=== PATIENT | female | born 1955 | race Caucasian/White ===

== ENCOUNTER 2018-01-08 11:22 | Outpatient (CLI) | payer MEDICARE, MEDICAID ==
[2018-01-08 19:02] LABS: BASOPHILS % (AUTO) 0.5 %; EOSINOPHILS # (AUTO) 0.9 10^3/uL (0.0-0.7); EOSINOPHILS % (AUTO) 9.7 %; HGB - HEMOGLOBIN 10.4 g/dL (12.0-16.0); LYMPHOCYTES # (AUTO) 2.2 10^3/uL (1.5-3.5); LYMPHOCYTES % (AUTO) 23.2 %; MEAN CORPUSCULAR HEMOGLOBIN 25.1 pg (27.0-31.0); MONOCYTES # (AUTO) 0.7 10^3/uL (0.0-1.0); NEUTROPHILS # (AUTO) 5.7 10^3/uL (1.5-6.6); NEUTROPHILS % (AUTO) 59.6 %; PLT - PLATELET COUNT 458 10^3/uL (130-450); RED BLOOD COUNT 4.17 10^6/uL (4.20-5.40); RED CELL DISTRIBUTION WIDTH 17.1 % (12.0-15.0); WHITE BLOOD COUNT 9.5 x10^3/uL (4.8-10.8)
[2018-01-08 19:41] LABS: ALBUMIN/GLOBULIN RATIO 1.1 (1.0-2.2); ALKALINE PHOSPHATASE 93 IU/L (42-121); ALT ALANINE AMINOTRANSFERASE 16 IU/L (10-60); AST ASPARTATE AMINOTRANSFERASE 18 IU/L (10-42); BILIRUBIN,TOTAL 0.3 mg/dL (0.2-1.0); BUN - BLOOD UREA NITROGEN 12 mg/dL (6-20); CALCIUM 9.1 mg/dL (8.5-10.3); CARBON DIOXIDE - CO2 30 mmol/L (21-32); CHLORIDE 101 mmol/L (101-111); CHOL/HDL RATIO 6.2 (<4.4); CHOLESTEROL 259 mg/dL; CREATININE 0.7 mg/dL (0.4-1.0); GFR - MDRD 84 (>89); GLUCOSE 99 mg/dL (70-100); HDL CHOLESTEROL 42 mg/dL; LDL CHOLESTEROL,CALCULATED 191 mg/dL; LDL/HDL RATIO 4.5 (<4.4); SODIUM 139 mmol/L (135-145); TOTAL PROTEIN 7.7 g/dL (6.7-8.2); VLDL CHOLESTEROL 26 mg/dL
== END 2018-01-08 11:23 | disposition home or self-care (01) ==
LOC: LAB.N 11:22
PROVIDERS: ATTEND Nurse Practitioner Gerontology
DX: J44.9 Chronic obstructive pulmonary disease, unspecified (principal); I10 Essential (primary) hypertension; K76.0 Fatty (change of) liver, not elsewhere classified; K57.92 Diverticulitis of intestine, part unspecified, without perforation or abscess without bleeding
CPT/HCPCS: 36415; 80053; 80061; 83721; 85025

== ENCOUNTER 2018-01-21 15:49 | Inpatient (IN) | payer MEDICARE, MEDICAID ==
[2018-01-21] MEDS ORDERED: metroNIDAZOLE 500 MG/100 ML 500 MG/100 ML BAG IV ONE (17:21)
[2018-01-21] MEDS ORDERED: CIPROFLOXACIN 400 MG/200 ML 200 ML IV ONE (17:21)
[2018-01-21] MEDS ORDERED: HYDROmorphone 0.5 MG/0.5 ML SYRINGE IVP PRN (17:21)
[2018-01-21] MEDS ORDERED: IPRATROPIUM/ALBUTEROL 3 ML NEB INH PRN (17:24)
[2018-01-21] MEDS ORDERED: ALBUTEROL NEB 2.5 MG/3 ML INH PRN (17:24)
[2018-01-21 17:49] LABS: BASOPHILS # (AUTO) 0.1 10^3/uL (0.0-0.1); BASOPHILS % (AUTO) 0.7 %; EOSINOPHILS # (AUTO) 0.5 10^3/uL (0.0-0.7); EOSINOPHILS % (AUTO) 5.3 %; HGB - HEMOGLOBIN 9.8 g/dL (12.0-16.0); LYMPHOCYTES # (AUTO) 1.7 10^3/uL (1.5-3.5); MEAN CORPUSCULAR HEMOGLOBIN 24.6 pg (27.0-31.0); MEAN CORPUSCULAR VOLUME 79.4 fL (81.0-99.0); MEAN PLATELET VOLUME 8.4 fL (7.9-10.8); MONOCYTES # (AUTO) 0.6 10^3/uL (0.0-1.0); MONOCYTES % (AUTO) 6.2 %; NEUTROPHILS # (AUTO) 6.6 10^3/uL (1.5-6.6); NEUTROPHILS % (AUTO) 69.8 %; PLT - PLATELET COUNT 446 10^3/uL (130-450); RED BLOOD COUNT 3.97 10^6/uL (4.20-5.40); RED CELL DISTRIBUTION WIDTH 16.8 % (12.0-15.0); WHITE BLOOD COUNT 9.5 x10^3/uL (4.8-10.8)
[2018-01-21] MEDS ORDERED: IOPAMIDOL-300 50 ML VIAL ONE (17:50)
[2018-01-21] MEDS ORDERED: IOPAMIDOL-300 100 ML VIAL ONE (17:51)
[2018-01-21 17:58] LABS: ALBUMIN 3.8 g/dL (3.2-5.5); ALBUMIN/GLOBULIN RATIO 0.9 (1.0-2.2); BILIRUBIN,TOTAL 0.7 mg/dL (0.2-1.0); CALCIUM 9.4 mg/dL (8.5-10.3); CREATININE 0.8 mg/dL (0.4-1.0); TOTAL PROTEIN 7.9 g/dL (6.7-8.2)
[2018-01-21] MEDS ORDERED: IOPAMIDOL-300 100 ML VIAL IVP ONE (19:03)
[2018-01-21] MEDS ORDERED: IOPAMIDOL-300 50 ML VIAL PO ONE (19:06)
--- NOTE | 2018-01-21 19:29 | CT Preliminary Report ---
Exam: CT ABDOMEN/PELVIS W/ IMPRESSION: 1. Markedly abnormal distal half of the sigmoid colon. Differential includes colitis, pseudomembranou s colitis, long length diverticulitis, ischemia, atypical for nonobstructing malignancy (although not excluded). 2. Small amount of free pelvic fluid. 3. Left lower pelvic mesenteric and bilateral internal iliac adenopathy. [facility] SITE ID: [id number]
[2018-01-21] MEDS: SODIUM CHLORIDE 0.9% 1,000 ML IV SCH (19:37)
--- NOTE | 2018-01-21 19:43 | CT Report ---
EXAM: CT ABDOMEN AND PELVIS EXAM DATE: 01/21/2018 07:03 PM. CLINICAL HISTORY: Left lower quadrant abdominal pain. COMPARISONS: 08/08/2016. TECHNIQUE: Routine helical CT imaging was performed through the abdomen and pelvis. IV contrast: 100 mL ISOVUE 300. Enteric contrast: Oral contrast. Reconstructions: Coronal and sagittal. In accordance with CT protocol optimization, one or more of the following dose reduction techniques w ere utilized for this exam: automated exposure control, adjustment of mA and/or KV based on patient s ize, or use of iterative reconstructive technique. FINDINGS: Lung Bases: Unremarkable. Liver: Fatty infiltration. No masses. Gallbladder/Bile Ducts: Unremarkable. Spleen: Normal. Pancreas: Normal. Adrenal Glands: Normal. Kidneys: Normal. No masses or hydronephrosis. Peritoneal Cavity/Bowel: Multiple diverticuli off the sigmoid colon. Marked wall thickening distal half sigmoid colon with a marked amount of adjacent edema, linear fluid as well as mesenteric adenopathy. No extraluminal air nor abscess. The more proximal large and small bowel are unremarkable. Oral contrast extends through to the distal descending colon. Appendix not visualized, but no inflammatory changes adjacent to the cecum. Pelvic Organs: Small amount of free pelvic fluid. Normal-caliber uterus. No stones in the small calib er urinary bladder. No adnexal mass lesions. Bilateral shotty internal iliac adenopathy. Normal rectu m. Vasculature: No aneurysms or other significant abnormality. Bones: Multilevel marked degenerative disk disease. Old right ninth rib fracture. Other: None. IMPRESSION: 1. Markedly abnormal distal half of the sigmoid colon. Differential includes colitis, pseudomembranou s colitis, long length diverticulitis, ischemia, atypical for nonobstructing malignancy (although not excluded). 2. Small amount of free pelvic fluid. 3. Left lower pelvic mesenteric and bilateral internal iliac adenopathy. [facility] Referring Provider Line: [phone] SITE ID: [id number]
[2018-01-21] MEDS: ONDANSETRON 4 MG/2 ML VIAL IVP PRN (20:58)
[2018-01-21] MEDS: CIPROFLOXACIN 400 MG/200 ML 200 ML IV SCH (21:09)
[2018-01-21] MEDS ORDERED: PROMETHAZINE INJ 25 MG in SODIUM CHLORIDE 0.9% 50 ML IV PRN (22:34)
[2018-01-21] MEDS ORDERED: PROCHLORPERAZINE 10 MG/2 ML VIAL IVP PRN (22:55)
[2018-01-21] MEDS: metroNIDAZOLE 500 MG/100 ML 500 MG/100 ML BAG IV SCH (23:58)
[2018-01-22] MEDS: SODIUM CHLORIDE FLUSH 0.9% 10 ML SYRINGE IVP SCH ×3 (00:07→15:38)
[2018-01-22] MEDS: metroNIDAZOLE 500 MG/100 ML 500 MG/100 ML BAG IV SCH ×4 (04:47→22:38)
[2018-01-22] MEDS: HEPARIN 5,000 UNIT/ML VIAL SUBQ SCH ×4 (05:48→21:34)
[2018-01-22] MEDS: CIPROFLOXACIN 400 MG/200 ML 200 ML IV SCH ×2 (08:58→21:24)
[2018-01-22] MEDS ORDERED: CITALOPRAM 10 MG TABLET PO SCH (09:00)
[2018-01-22] MEDS: LISINOPRIL 20 MG TABLET PO SCH (09:10)
[2018-01-22] MEDS: UMECLIDINIUM BROMIDE 62.5 MCG INH SCH (10:29)
[2018-01-22] MEDS: SODIUM CHLORIDE 0.9% 1,000 ML IV SCH ×2 (12:55→13:03)
[2018-01-22] MEDS: ONDANSETRON 4 MG/2 ML VIAL IVP PRN (21:22)
[2018-01-22] MEDS: ACETAMINOPHEN 325 MG TABLET PO PRN (21:26)
--- NOTE | 2018-01-23 00:03 | PROVIDER PROGRESS NOTE ---
Subjective - General Admit Date: 01/21/18 - Review of Systems Gastrointestinal: positive: Flatus (Had a small bowel movement today), Other ( less abdominal pain today) Objective - Patient Data Vital Signs: Vital Signs x48h Temp Pulse Resp BP Pulse Ox 01/22/18 20:30 37.0 C 89 18 152/72 H 94 Weight: Weight 01/21/18 01/22/18 01/23/18 23:59 23:59 23:59 Weight (kg) 83.5 kg Intake & Output: Intake and Output Totals x24h 01/21/18 01/22/18 01/23/18 23:59 23:59 23:59 Intake Total 1200 4340 Balance 1200 4340 - Lab Results Lab Results: 01/21/18 17:36 01/21/18 17:36 - Current Medications Current Medications: Current Medications Generic Name Dose Route Start Last Admin Trade Name Freq PRN Reason Stop Dose Admin Acetaminophen 650 mg 01/22/18 21:00 01/22/18 21:26 Tylenol PO 650 mg Q4HR PRN Administration Pain or Fever > 38C (100.4F) Heparin Sodium (Porcine) 5,000 unit 01/21/18 22:00 01/22/18 21:34 SUBQ 5,000 unit TID ERNESTINA Administration Sodium Chloride 1,000 mls @ 100 mls/hr 01/21/18 18:00 01/22/18 22:10 Normal Saline 0.9% IV Infused .Q10H ERNESTINA Infusion Ciprofloxacin 200 mls @ 200 mls/hr 01/21/18 20:30 01/22/18 22:42 Cipro 400 Mg/200 Ml IV Infused Q12H ERNESTINA Infusion Metronidazole 500 mg in 100 mls @ 100 mls/hr 01/21/18 22:00 01/22/18 22:38 Flagyl 500 Mg/100 Ml IV 100 mls/hr Q6H ERNESTINA Administration Lisinopril 20 mg 01/22/18 09:00 01/22/18 09:10 Zestril PO 20 mg DAILY ERNESTINA Administration Non-Formulary Medication 62.5 mcg 01/22/18 09:00 01/22/18 10:29 Umeclidinium [place] [Incruse Ellipta] INH Not Given DAILY ERNESTINA Ondansetron HCl 4 mg 01/21/18 20:15 01/22/18 21:22 Zofran Inj IVP 4 mg Q6HR PRN Administration Nausea / Vomiting Prochlorperazine Edisylate 10 mg 01/21/18 22:55 01/21/18 23:55 Compazine Inj IVP 10 mg Q4HR PRN Administration Nausea / Vomiting Sodium Chloride 10 ml 01/22/18 01:00 01/22/18 15:38 Normal Saline Flush 0.9% IVP Not Given 0100,0900,1700 ERNESTINA - Physical Exam Abdomen: positive: Tenderness (Tender LLQ without peritoneal signs) ABX Reporting Has patient been on IV antibiotics over the past 48 hours?: No Impression/Plan - Problem List Problem List: Recurrent sigmoid diverticulitis clinically on and ct scan. Improved overnight on IV antibiotics but still having tenderness in llq. Recommend at least 1 more day of iv antibiotics after starting on liquids.
[2018-01-23] MEDS: SODIUM CHLORIDE 0.9% 1,000 ML IV SCH ×2 (03:29→15:44)
[2018-01-23] MEDS: SODIUM CHLORIDE FLUSH 0.9% 10 ML SYRINGE IVP SCH ×3 (03:30→16:39)
[2018-01-23] MEDS: metroNIDAZOLE 500 MG/100 ML 500 MG/100 ML BAG IV SCH ×4 (03:33→23:14)
[2018-01-23] MEDS: HEPARIN 5,000 UNIT/ML VIAL SUBQ SCH ×3 (06:54→22:10)
[2018-01-23] MEDS: CIPROFLOXACIN 400 MG/200 ML 200 ML IV SCH ×2 (08:02→22:09)
[2018-01-23] MEDS: LISINOPRIL 20 MG TABLET PO SCH (08:03)
[2018-01-23] MEDS: ACETAMINOPHEN 325 MG TABLET PO PRN ×2 (08:08→16:42)
[2018-01-23] MEDS ORDERED: PROCHLORPERAZINE 10 MG/2 ML VIAL IVP PRN (09:22)
--- NOTE | 2018-01-23 09:23 | PROVIDER PROGRESS NOTE ---
Subjective - General Admit Date: 01/21/18 - Review of Systems Gastrointestinal: positive: Flatus (loose bowel movements now), Other ( continued less abdominal pain today) Objective - Patient Data Vital Signs: Vital Signs x48h Temp Pulse Resp BP Pulse Ox 01/23/18 07:27 37.2 C 100 18 160/76 H 94 01/23/18 05:05 36.9 C 88 16 147/70 H 95 Weight: Weight 01/21/18 01/22/18 01/23/18 23:59 23:59 23:59 Weight (kg) 83.5 kg Intake & Output: Intake and Output Totals x24h 01/21/18 01/22/18 01/23/18 23:59 23:59 23:59 Intake Total 1200 4340 800 Balance 1200 4340 800 - Lab Results Lab Results: 01/21/18 17:36 01/21/18 17:36 - Current Medications Current Medications: Current Medications Generic Name Dose Route Start Last Admin Trade Name Freq PRN Reason Stop Dose Admin Acetaminophen 650 mg 01/22/18 21:00 01/23/18 08:08 Tylenol PO 650 mg Q4HR PRN Administration Pain or Fever > 38C (100.4F) Heparin Sodium (Porcine) 5,000 unit 01/21/18 22:00 01/23/18 06:54 SUBQ 5,000 unit TID ERNESTINA Administration Sodium Chloride 1,000 mls @ 100 mls/hr 01/21/18 18:00 01/23/18 03:29 Normal Saline 0.9% IV 100 mls/hr .Q10H ERNESTINA Administration Ciprofloxacin 200 mls @ 200 mls/hr 01/21/18 20:30 01/23/18 08:02 Cipro 400 Mg/200 Ml IV 200 mls/hr Q12H ERNESTINA Administration Metronidazole 500 mg in 100 mls @ 100 mls/hr 01/21/18 22:00 01/23/18 05:29 Flagyl 500 Mg/100 Ml IV Infused Q6H ERNESTINA Infusion Lisinopril 20 mg 01/22/18 09:00 01/23/18 08:03 Zestril PO 20 mg DAILY ERNESTINA Administration Non-Formulary Medication 62.5 mcg 01/22/18 09:00 01/22/18 10:29 Umeclidinium [place] [Incruse Ellipta] INH Not Given DAILY ERNESTINA Sodium Chloride 10 ml 01/22/18 01:00 01/23/18 03:30 Normal Saline Flush 0.9% IVP Not Given 0100,0900,1700 [facility] - Physical Exam Abdomen: positive: Tenderness (Continued tenderness in llq but improved compared to yesterday.) Impression/Plan - Problem List Problem List: Sigmoid diverticulitis. Improved but symptoms still present. Continue at least one more day of iv antibiotics. -advance diet -heplock iv
[2018-01-23] MEDS: SACCHAROMYCES BOULARDII 250 MG CAPSULE PO SCH ×2 (10:06→16:37)
[2018-01-23] MEDS: UMECLIDINIUM BROMIDE 62.5 MCG INH SCH (10:07)
[2018-01-23] MEDS ORDERED: ZINC OXIDE 20% OINT 28.35 GM TUBE TOP PRN (14:38)
[2018-01-23] MEDS: SODIUM CHLORIDE FLUSH 0.9% 10 ML SYRINGE IVP PRN (22:09)
[2018-01-23] MEDS: FAMOTIDINE 20 MG TABLET PO SCH (22:10)
[2018-01-24] MEDS: ACETAMINOPHEN 325 MG TABLET PO PRN (00:06)
[2018-01-24] MEDS: ZOLPIDEM 5 MG TABLET PO PRN (00:07)
[2018-01-24] MEDS: SODIUM CHLORIDE FLUSH 0.9% 10 ML SYRINGE IVP SCH ×3 (00:12→16:08)
[2018-01-24] MEDS: SODIUM CHLORIDE FLUSH 0.9% 10 ML SYRINGE IVP PRN ×3 (04:43→20:42)
[2018-01-24] MEDS: metroNIDAZOLE 500 MG/100 ML 500 MG/100 ML BAG IV SCH ×4 (04:43→21:41)
[2018-01-24] MEDS: HEPARIN 5,000 UNIT/ML VIAL SUBQ SCH ×3 (05:46→21:57)
[2018-01-24] MEDS: LISINOPRIL 20 MG TABLET PO SCH (09:20)
[2018-01-24] MEDS: CIPROFLOXACIN 400 MG/200 ML 200 ML IV SCH ×2 (09:20→20:42)
[2018-01-24] MEDS: FAMOTIDINE 20 MG TABLET PO SCH ×2 (09:20→21:41)
[2018-01-24] MEDS: SACCHAROMYCES BOULARDII 250 MG CAPSULE PO SCH ×2 (09:20→16:08)
[2018-01-24] MEDS: UMECLIDINIUM BROMIDE 62.5 MCG INH SCH (10:31)
[2018-01-25] MEDS: ZOLPIDEM 5 MG TABLET PO PRN (00:26)
[2018-01-25] MEDS: SODIUM CHLORIDE FLUSH 0.9% 10 ML SYRINGE IVP SCH ×2 (00:26→08:40)
[2018-01-25] MEDS: SODIUM CHLORIDE FLUSH 0.9% 10 ML SYRINGE IVP PRN ×2 (03:41→08:40)
[2018-01-25] MEDS: metroNIDAZOLE 500 MG/100 ML 500 MG/100 ML BAG IV SCH ×2 (03:41→10:30)
[2018-01-25] MEDS: HEPARIN 5,000 UNIT/ML VIAL SUBQ SCH (06:06)
[2018-01-25] MEDS: FAMOTIDINE 20 MG TABLET PO SCH (08:39)
[2018-01-25] MEDS: LISINOPRIL 20 MG TABLET PO SCH (08:39)
[2018-01-25] MEDS: CIPROFLOXACIN 400 MG/200 ML 200 ML IV SCH (08:40)
[2018-01-25] MEDS: SACCHAROMYCES BOULARDII 250 MG CAPSULE PO SCH (08:40)
--- NOTE | 2018-01-25 08:55 | Discharge Plan ---
Discharge Plan Disposition: 01 Home, Self Care Condition: Good Prescriptions: Ciprofloxacin HCl [Cipro] 500 mg PO BID #14 tablet Activity Restrictions: No Restrictions Shower Restrictions: No Driving Restrictions: No Additional Instructions or Follow Up instructions: full liquids for 2 days then low residual for 2 weeks. Afterwards then high fiber diet. No Smoking: If you smoke, Please STOP! Call for help. Follow-up with: Mckenzie Ayala ARNP [Primary Care Provider] - Redd Rain MD [Provider Admit Priv/Credential] - 2 Weeks
[2018-01-25] MEDS ORDERED: SODIUM CHLORIDE FLUSH 0.9% 10 ML SYRINGE ONE (10:34)
[2018-01-25] MEDS: UMECLIDINIUM BROMIDE 62.5 MCG INH SCH (11:41)
[2018-01-25 12:15] VITALS: BP 173/85
--- NOTE | 2018-02-25 03:04 | PROVIDER PROGRESS NOTE ---
Subjective - General Admit Date: 01/21/18 - Review of Systems Gastrointestinal: positive: Flatus (loose bowel movements now), Other (still having about the same amount of abdominal pain as yesterday.) Objective - Lab Results Lab Results: 01/21/18 17:36 01/21/18 17:36 - Physical Exam Abdomen: positive: Other (mild tenderness in the llq) Impression/Plan - Problem List Problem List: Diverticulitis. This has improved clinically on IV antibiotics but hasnt fully resolved. Discussed switching to different iv antibiotics but this would remove any chance of being discharged on oral antibiotics and would then make it so that she would need to be sent home on IV antibiotics. She would like to try one more day of current antibiotics to see if the diverticulitis will resolve. Continue cipro/flagyl Advance diet as tolerated.
--- NOTE | 2018-02-25 03:08 | PROVIDER PROGRESS NOTE ---
Subjective - General Admit Date: 01/21/18 - Review of Systems Gastrointestinal: positive: Flatus (loose bowel movements now), Other ( abdominal pain almost fully resolved today. Bowel movements firming up.) Objective - Lab Results Lab Results: 01/21/18 17:36 01/21/18 17:36 - Physical Exam Abdomen: positive: Non-tender, Other Impression/Plan - Problem List Problem List: Diverticulitis with symptoms for the most part resolved on cipro/flagyl. Will d/c home today on oral antibiotics. COPD stable on inhalers.
--- NOTE | 2018-02-25 11:18 | DISCHARGE SUMMARY ---
Physician: Redd Rain MD DATE OF ADMISSION: 01/21/2018 DATE OF DISCHARGE: 01/25/2018 REASON FOR ADMISSION: Recurrent sigmoid diverticulitis. HISTORY OF PRESENT ILLNESS: The patient is a 62-year-old female who had a history of diverticulitis treated with Cipro and Flagyl in the last month. She has had continued abdominal pain. She was seen in the clinic on the day of admission having severe abdominal pain. Because of this, she was then admitted to the hospital for further diagnostic testing and treatment. PRINCIPAL DIAGNOSIS: Recurrent sigmoid diverticulitis. OTHER MEDICAL PROBLEMS 1. Chronic obstructive pulmonary disease. 2. Hypertension. 3. Depression/anxiety. 4. Anemia of unknown etiology. HOSPITAL COURSE: The patient was admitted to the hospital and started on Cipro and Flagyl along with IV fluids and pain medication. The patient had normal white blood cell count of 9.5. However, she was anemic at 9.8. She had a CT scan of her abdomen and pelvis, which showed markedly abnormal distal half of the sigmoid colon being secondary to probable diverticulitis. There is no obvious perforation being present at the current time. She was continued with Cipro and Flagyl throughout hospitalization. The patient's abdominal pain continued to improve throughout hospitalization with it almost resolving at discharge. She was tolerating a regular diet at this point and having stools becoming firmer. DISCHARGE PROGRAM: The patient will be discharged home. Followup in surgical clinic in 2 weeks in order to discuss having an upper and lower endoscopy to evaluate her diverticulitis and colon along with workup of her anemia. She is to resume her prehospitalization medications. In addition, Cipro 500 mg p.o. b.i.d. and Flagyl 500 mg p.o. t.i.d. She may ambulate as tolerated. Regular diet. TD: 02/25/2018 03:18
--- NOTE | 2018-02-25 11:47 | HISTORY & PHYSICAL EXAMINATION ---
DATE OF SERVICE: 01/21/2018 Physician: Redd Rain MD REASON FOR ADMISSION: Acute abdominal pain. HISTORY OF PRESENT ILLNESS: The patient is a 62-year-old female who presents with abdominal pain to the clinic. She has had this for the last month with it worsening. Her history is significant in which she was admitted to the hospital a year ago for worsening COPD. She was having abdominal pain at that time. A CT scan of abdomen and pelvis showed diverticulitis. This resolved with Cipro and Flagyl. She was also having diarrhea and blood in her stool. In the last month, she has had continued abdominal pain and going on a BRAT diet without success in her relieving her pain. Because of the continuing pain, she was referred to surgery for evaluation. She denies any current diarrhea or constipation. Her history is significant in which her son recently has history of diverticulitis undergoing a resection. The patient has not had a colonoscopy. PAST MEDICAL HISTORY 1. Anxiety and depression. 2. Gastroesophageal reflux disease. 3. COPD. 4. History of diverticulitis. 5. History of gastrointestinal bleeding. 6. Hypertension. 7. Obesity. 8. Steatosis of the liver. ALLERGIES: PENICILLIN. MEDICATIONS 1. Citalopram 2. Ipratropium/Albuterol 3. Aleve 4. Ventolin inhaler 5. Lisinopril 6. Ranitidine PAST SURGICAL HISTORY: Appendectomy and tubal ligation. FAMILY HISTORY: Diabetes. HABITS: The patient quit smoking in 2011. SOCIAL HISTORY: She socially uses alcohol. Denies any drug use. Patient is single. REVIEW OF SYSTEMS: Complete review of systems was obtained. Pertinent positives are gastrointestinal abdominal pain and occasional loose stools. RESPIRATORY: Shortness of breath. PSYCHOLOGICAL: Depression and anxiety. A 12-point review of systems obtained with pertinent positives discussed and all others negative. PHYSICAL EXAMINATION VITAL SIGNS: Temperature is 98.2, pulse 112, respiration 18, blood pressure 161/92. GENERAL: The patient is obviously in distress secondary to abdominal pain. EYES: Nonicteric. NECK: No lymphadenopathy. HEART: Mildly tachycardic. LUNGS: Clear. BACK: Nontender. ABDOMEN: Soft, tender in the left lower quadrant without peritoneal signs. No masses. No hernias. EXTREMITIES: No edema or cyanosis. NEUROLOGIC: The patient appears to be neurologically intact without any deficits. PSYCHOLOGICAL: The patient is coherent, cooperative, and appears to answer questions fully. DIAGNOSTIC DATA: CBC and CT scan of the abdomen and pelvis are pending. ASSESSMENT 1. Acute abdominal pain, left lower quadrant. The patient has history of diverticulitis. I would recommend the patient be admitted to the hospital and undergoing diagnostic workup along with treatment for presumed diverticulitis. She will be started on IV antibiotics, n.p.o. and IV fluids. We will obtain a CT scan of the abdomen and pelvis. 2. Gastroesophageal reflux disease, on Zantac. 3. Anxiety/depression, on medications. 4. COPD, on inhalers. PLAN 1. The patient be admitted to the hospital. 2. N.p.o. 3. IV fluids. 4. IV antibiotics. 5. CT scan of the abdomen and pelvis. 6. CBC to see where her white blood cell count is. TD: 02/25/2018 02:49
== END 2018-01-25 12:57 | disposition home or self-care (01) | DRG 392 ==
LOC: MS2 15:49
PROVIDERS: ADMIT Surgery; ATTEND Surgery
DX: K57.32 Diverticulitis of large intestine without perforation or abscess without bleeding (principal); J44.9 Chronic obstructive pulmonary disease, unspecified; K21.9 Gastro-esophageal reflux disease without esophagitis; K76.0 Fatty (change of) liver, not elsewhere classified; I10 Essential (primary) hypertension; F41.9 Anxiety disorder, unspecified; F43.29 Adjustment disorder with other symptoms; D64.9 Anemia, unspecified; E66.9 Obesity, unspecified; Z68.32 Body mass index [BMI] 32.0-32.9, adult; Z79.51 Long term (current) use of inhaled steroids; Z79.899 Other long term (current) drug therapy; Z87.891 Personal history of nicotine dependence
CPT/HCPCS: 74177; 80053; 85025

== ENCOUNTER 2018-03-16 10:03 | Day surgery (SDC) | payer MEDICARE, MEDICAID ==
[2018-03-16] MEDS ORDERED: LACTATED RINGERS 1,000 ML IV ONE ×2 (10:34→12:26)
[2018-03-16] MEDS ORDERED: fentaNYL 250 MCG/5 ML VIAL IVP ONE (11:20)
[2018-03-16] MEDS ORDERED: GLUCAGON 1 MG/ML VIAL IM ONE (11:20)
[2018-03-16] MEDS ORDERED: ONDANSETRON 4 MG/2 ML VIAL IVP ONE (11:20)
[2018-03-16] MEDS ORDERED: MIDAZOLAM 2 MG/2 ML VIAL IVP ONE (11:20)
[2018-03-16 13:52] VITALS: BP 132/77
== END 2018-03-16 10:04 | disposition home or self-care (01) ==
LOC: SDS 10:03
PROVIDERS: ATTEND Surgery
PROC: 0DJD8ZZ Inspection of Lower Intestinal Tract, Via Natural or Artificial Opening Endoscopic (ICD-10-PCS; principal; 2018-03-16 11:30)
DX: Z09 Encounter for follow-up examination after completed treatment for conditions other than malignant neoplasm (principal); Z87.19 Personal history of other diseases of the digestive system; K57.30 Diverticulosis of large intestine without perforation or abscess without bleeding; K64.8 Other hemorrhoids; Z88.0 Allergy status to penicillin; Z87.891 Personal history of nicotine dependence
CPT/HCPCS: 45378; J3010; J7120

== ENCOUNTER 2018-11-30 16:12 | Outpatient (CLI) | payer MEDICARE, MEDICAID ==
--- NOTE | 2018-12-02 06:06 | XRAY Report ---
Reason: copd acute exacerbation Procedure Date: 11/30/2018 Accession Number: [id number] / [id number] Procedure: XRN - Chest 2 View X-Ray CPT Code: 07404 FULL RESULT: EXAM: CHEST RADIOGRAPHY EXAM DATE: 11/30/2018 04:23 PM. CLINICAL HISTORY: Dyspnea. COMPARISON: CHEST 2 VIEW PA/LAT 08/06/2016 10:34 AM. TECHNIQUE: 2 views. FINDINGS: Lungs/Pleura: No definite evidence of focal infiltrate. No significant pleural effusion. No pneumothorax. Mediastinum: There is cardiomegaly. There is thoracic aortic tortuosity. Other: None. IMPRESSION: No acute intrathoracic plain film abnormality. [facility]
== END 2018-11-30 16:13 | disposition home or self-care (01) ==
LOC: DI.N 16:12
PROVIDERS: ATTEND Nurse Practitioner Gerontology
DX: J44.1 Chronic obstructive pulmonary disease with (acute) exacerbation (principal)
CPT/HCPCS: 71046

== ENCOUNTER 2019-12-02 16:36 | Outpatient (CLI) | payer MEDICARE, MEDICAID | END 2019-12-02 16:37 | disposition home or self-care (01) | LOC: COV 16:36 | PROVIDERS: ATTEND Family Medicine | DX: R05 Cough (principal); R50.9 Fever, unspecified | CPT/HCPCS: 81599; U0002 ==

== ENCOUNTER 2020-07-24 08:00 | Outpatient (CLI) | payer MEDICARE, MEDICAID | END 2020-07-24 23:59 | disposition home or self-care (01) | LOC: LAB.R 08:00 | PROVIDERS: ATTEND Nurse Practitioner Family | DX: R05 Cough (principal); Z20.828 Contact with and (suspected) exposure to other viral communicable diseases ==

== ENCOUNTER 2021-01-28 18:31 | Outpatient (CLI) | payer MEDICARE, MEDICAID | END 2021-01-28 18:32 | disposition critical access hospital (66) | LOC: EMS 18:31 | DX: R07.9 Chest pain, unspecified (principal) ==

== ENCOUNTER 2021-01-28 18:54 | Inpatient (IN) | payer MEDICARE, MEDICAID ==
[2021-01-28 19:13] LABS: BASOPHILS % (AUTO) 0.4 %; EOSINOPHILS # (AUTO) 0.9 10^3/uL (0.0-0.7); EOSINOPHILS % (AUTO) 8.5 %; LYMPHOCYTES # (AUTO) 1.8 10^3/uL (1.5-3.5); LYMPHOCYTES % (AUTO) 17.9 %; MEAN CORPUSCULAR HEMOGLOBIN 19.2 pg (27.0-31.0); MEAN CORPUSCULAR HGB CONC 26.8 g/dL (32.0-36.0); MEAN CORPUSCULAR VOLUME 71.6 fL (81.0-99.0); MEAN PLATELET VOLUME 8.4 fL (7.9-10.8); MONOCYTES # (AUTO) 0.9 10^3/uL (0.0-1.0); MONOCYTES % (AUTO) 8.5 %; NEUTROPHILS # (AUTO) 6.4 10^3/uL (1.5-6.6); NEUTROPHILS % (AUTO) 64.2 %; NRBC ABSOLUTE COUNT (AUTO) 0.05 x10^3/uL; NUCLEATED RED BLOOD CELLS AUTO 0.5 /100WBC; PLT - PLATELET COUNT 430 10^3/uL (130-450); RED CELL DISTRIBUTION WIDTH 23.9 % (12.0-15.0)
[2021-01-28 19:24] LABS: HCT - HEMATOCRIT 17.9 % (37.0-47.0); HGB - HEMOGLOBIN 4.8 g/dL (12.0-16.0)
--- NOTE | 2021-01-28 19:32 | ED Physician Documentation ---
History of Present Illness - Stated complaint Stated Complaint: CP - Chief complaint Chief Complaint: Cardiac - History obtained from History obtained from: Patient, EMS - History of Present Illness Pain level max: 5 Pain level now: 3 - Additonal information Additional information: 65-year-old female states that she has been having intermittent chest pain for the past month. She states that it normally last for 3 to 5 minutes at a time, but may last for up to 20 minutes. She describes it as a burning sensation from the center of her chest down her bilateral arms to her hands. Nothing seems to make it better or worse. No change with exertion, eating, drinking. No cardiac history. Does have a history of COPD and is on 4 L of oxygen at home normally. No fevers. No cough. No congestion. Denies any blood in her stool. No dark stools Review of Systems Ten Systems: 10 systems reviewed and negative Constitutional: denies: Fever, Chills Ears: denies: Ear pain Nose: denies: Rhinorrhea / runny nose, Congestion GI: denies: Vomiting, Diarrhea Skin: denies: Rash Musculoskeletal: denies: Neck pain, Back pain Neurologic: denies: Headache PD PAST MEDICAL HISTORY - Past Medical History Past Medical History: Yes Cardiovascular: Hypertension Respiratory: COPD, Emphysema, Other Endocrine/Autoimmune: None GI: None : None HEENT: None Psych: Depression, Anxiety Musculoskeletal: None Derm: None - Past Surgical History Past Surgical History: Yes 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 - Present Medications Home Medications: Ambulatory Orders Medication Instructions Recorded Confirmed Albuterol Sulf [Ventolin Hfa 2 puffs INH Q4H PRN #1 inhaler 08/09/16 01/28/21 Inhaler] Aspirin [Adult Aspirin] 81 mg PO DAILY 01/21/18 01/28/21 Ipratropium/Albuterol [Duoneb] 3 ml INH Q6H PRN 01/21/18 01/28/21 Melatonin 5 mg PO QPM 01/21/18 01/28/21 Naproxen Sodium 220 mg PO DAILY PRN 01/21/18 01/28/21 Umeclidinium [place] [Incruse 62.5 mcg INH DAILY 01/21/18 01/28/21 Ellipta] guaiFENesin [Guaifenesin] 400 mg PO Q4H 01/21/18 01/28/21 lisinopriL [Lisinopril] 20 mg PO DAILY 01/21/18 01/28/21 raNITIdine HCL [Ranitidine HCl] 150 mg PO BID 01/21/18 01/28/21 Citalopram [CeleXA] 10 mg PO DAILY 03/16/18 01/28/21 - Allergies Allergies/Adverse Reactions: Allergies Allergy/AdvReac Type Severity Reaction Status Date / Time hydromorphone [From Dilaudid] AdvReac Emesis Verified 01/28/21 19:25 Penicillins AdvReac Hives Verified 01/28/21 19:25 - Social History Does the pt smoke?: Yes Smoking Status: Former smoker PD ED PE NORMAL - Vitals Vital signs reviewed: Yes - General General: Alert and oriented X 3, No acute distress, Well developed/nourished - HEENT HEENT: PERRL, Moist mucous membranes - Neck Neck: Supple, no meningeal sign - Cardiac Cardiac: RRR, Strong equal pulses - Respiratory Respiratory: No respiratory distress, Other (Wheezing bilaterally, mild) - Abdomen Abdomen: Soft, Non tender, Non distended - Rectal Rectal: Other (No stool in the rectal vault to test.) - Derm Derm: Warm and dry - Extremities Extremities: No edema, No calf tenderness / cord - Neuro Neuro: Alert and oriented X 3 - Psych Psych: Normal mood, Normal affect Results - Vitals Vitals: Vital Signs - 24 hr 01/28/21 01/28/21 01/28/21 19:18 19:25 19:29 Temperature 36.9 C Heart Rate 113 H 109 H Respiratory 18 18 Rate Blood Pressure 109/98 H 83/55 L Blood Pressure 109/88 H [Right] O2 Saturation 100 100 Oxygen O2 Source Nasal cannula - EKG (time done) 1900 Rate: Rate (enter#) (118) Rhythm: Sinus tachycardia [place]: Normal Intervals: Normal [place] QRS: Normal Ischemia: Other (rate related repol abnormality, ST depression lateral leads) - Labs Labs: Laboratory Tests 01/28/21 01/28/21 01/28/21 19:09 19:09 19:09 WBC 10.0 RBC 2.50 L Hgb 4.8 L* Hct 17.9 L* MCV 71.6 L MCH 19.2 L MCHC 26.8 L RDW 23.9 H Plt Count 430 MPV 8.4 Neut # (Auto) 6.4 Lymph # (Auto) 1.8 [place] # (Auto) 0.9 Eos # (Auto) 0.9 H Baso # (Auto) 0.0 Absolute Nucleated RBC 0.05 Nucleated RBC % 0.5 WBC Morphology NORMAL APPEARANCE Platelet Estimate NORMAL (130-450,000) Platelet Morphology 1+ GIANT PLATELETS RBC Morph Micro Appear 1+ POLYCHROMASIA Sodium 130 L Potassium 6.3 H* Chloride 109 Carbon Dioxide 15 L Anion Gap 6.0 BUN 51 H Creatinine 1.8 H Estimated GFR (MDRD) 28 L Glucose 107 H Calcium 9.2 Iron TIBC % Saturation Transferrin Total Bilirubin 0.2 AST 15 ALT 18 Alkaline Phosphatase 72 Troponin I High Sens 63.0 H* Total Protein 7.3 Albumin 3.9 Globulin 3.4 Albumin/Globulin Ratio 1.1 Lipase 73 H Blood Type Blood Type Recheck Antibody Screen Crossmatch IS Only 01/28/21 01/28/21 01/28/21 19:09 19:10 19:35 WBC RBC Hgb Hct MCV MCH MCHC RDW Plt Count MPV Neut # (Auto) Lymph # (Auto) [place] # (Auto) Eos # (Auto) Baso # (Auto) Absolute Nucleated RBC Nucleated RBC % WBC Morphology Platelet Estimate Platelet Morphology RBC Morph Micro Appear Sodium Potassium Chloride Carbon Dioxide Anion Gap BUN Creatinine Estimated GFR (MDRD) Glucose Calcium Iron 11 L TIBC 498 H % Saturation 2 L Transferrin 356 Total Bilirubin AST ALT Alkaline Phosphatase Troponin I High Sens Total Protein Albumin Globulin Albumin/Globulin Ratio Lipase Blood Type A POSITIVE Blood Type Recheck A POSITIVE Antibody Screen NEGATIVE Crossmatch IS Only See Detail - Rads (name of study) cxr Radiology: Prelim report reviewed, EMP read contemporaneously, See rad report (1. Chronic left lung base opacity. No acute process. ) PD MEDICAL DECISION MAKING - ED course Complexity details: reviewed results, re-evaluated patient, considered differential, d/w patient, d/w senior sales consultant ED course: 65-year-old female with atypical chest pain. She is found to be significantly anemic. Very low total iron, unable to test stool for Hemoccult due to lack of stool in the rectal vault. Had a colonoscopy that was relatively normal in 2018. Does not use NSAIDs. She is on aspirin daily. Patient was typed and crossed, blood was ordered. Discussed the case with Dr. Hill, general surgery on-call who will consult tomorrow for likely colonoscopy and endoscopy. Patient was given Protonix as well. Discussed the case with the hospitalist, Dr. Hall, who graciously accepts. This document was made in part using voice recognition software. While efforts are made to proofread this document, sound alike and grammatical errors may occur. Mild troponin elevation likely secondary to cardiac stress from the significant anemia. Patient also found to be hyperkalemic. She was treated with insulin and glucose. Also given IV fluids. No EKG changes Departure - Departure Disposition: 64 [facility] DC/Xfer Clinical Impression: Symptomatic anemia, Hyperkalemia, Acute kidney injury Condition: Stable Discharge Date/Time: 01/28/21 20:45
--- NOTE | 2021-01-28 19:43 | XRAY Report ---
PROCEDURE: Chest 1 View X-Ray INDICATIONS: Chest Pain TECHNIQUE: One view of the chest was acquired. COMPARISON: 11/30/2018 FINDINGS: Surgical changes and devices: None. Lungs and pleura: There is opacity at the left lateral lower lung obscuring left cardiac border, pote ntially atelectasis or effusion. Little change compared to the prior study. Mediastinum: Mediastinal contours appear normal. Heart size is enlarged.. Bones and chest wall: No suspicious bony lesions. Mild scoliosis. Remote right posterior rib fractur e callus. Overlying soft tissues appear unremarkable. IMPRESSION: 1. Chronic left lung base opacity. No acute process. Reviewed by: Brissa Singleton MD on 01/28/2021 7:41 PM PDT Approved by: Brissa Singleton MD on 01/28/2021 7:41 PM PDT Station ID: [id number]
[2021-01-28 19:48] LABS: ALBUMIN 3.9 g/dL (3.2-5.5); ALBUMIN/GLOBULIN RATIO 1.1 (1.0-2.2); BILIRUBIN,TOTAL 0.2 mg/dL (0.2-1.0); CALCIUM 9.2 mg/dL (8.5-10.3); CREATININE 1.8 mg/dL (0.4-1.0); TOTAL PROTEIN 7.3 g/dL (6.7-8.2)
[2021-01-28] MEDS ORDERED: SODIUM CHLORIDE 0.9% 1,000 ML IV STA (19:49)
[2021-01-28 19:50] LABS: POTASSIUM 6.3 mmol/L (3.5-5.0)
[2021-01-28] MEDS ORDERED: INSULIN REGULAR HUMAN 100 UNIT/1 ML 10 ML MDV SUBQ STA (19:52)
[2021-01-28] MEDS ORDERED: DEXTROSE 50% ABBOJECT 25 GM/50 ML SYRINGE IVP STA (19:53)
[2021-01-28] MEDS ORDERED: PANTOPRAZOLE 40 MG VIAL IVP STA (19:53)
[2021-01-28] MEDS ORDERED: ONDANSETRON 4 MG/2 ML VIAL IVP PRN (20:02)
[2021-01-28] MEDS ORDERED: SODIUM CHLORIDE FLUSH 0.9% 10 ML SYRINGE IVP PRN (20:02)
[2021-01-28] MEDS ORDERED: ACETAMINOPHEN 325 MG TABLET PO PRN (20:02)
[2021-01-28] MEDS ORDERED: ONDANSETRON ODT 4 MG TABLET TL PRN (20:02)
[2021-01-28] MEDS ORDERED: oxyCODONE 5 MG TABLET PO PRN (20:02)
[2021-01-28 20:15] LABS: % IRON SATURATION 2 % (20-50); IRON 11 ug/dL (28-170); TOTAL IRON BINDING CAPACITY 498 ug/dL (250-450); TRANSFERRIN 356 mg/dL (192-382)
[2021-01-28 20:47] LABS: PLATELET ESTIMATE, MANUAL NORMAL (130-450,000) (NORMAL); PLATELET MORPHOLOGY 1+ GIANT PLATELETS (NORMAL)
[2021-01-28 20:48] LABS: WBC MORPHOLOGY (MULTIPLE) NORMAL APPEARANCE (NORMAL)
--- NOTE | 2021-01-28 21:20 | HISTORY & PHYSICAL EXAMINATION ---
Chief Complaint - Chief Complaint Chief Complaint: BIB EMS for chest pain with exertion for 2 months, today woke her from nap History of Present Illness - Admitted From Admitted From:: Home via EMS - History Obtained From Records Reviewed: [employer] and [employer] History obtained from: patient and Dr. Campos Exam Limitations: none - History of Present Illness HPI Comment/Other: Her chest pain is described as a burning feeling in the center of her chest. It goes down her arms all the way to her hands. It is worse with trying to walk, or do chores. Eating does not make it worse. Goes away with rest. Will last 3 to 5 minutes at a time. There is no nausea, diaphoresis, palpitations, orthopnea or edema with this. She has no previous history of cardiac disease and risk factors include age, hypertension, and family history. She has been disabled due to COPD for close to a decade now. She has been on home O2 since 2016. If it falls off in her sleep, she desats to 70s. She had the chest pain since early December 2020. She called her primary care provider's office for advice and at that time the pain was not so frequent or heavy. The pain she describes today is the same pain she described by phone then. She did not want to go to the ER and asked to make an appointment. But they called her back and cancelled her appointment since the provider quit and left. She says that that has been one of the most difficult things about moving here. She has lost so many providers since 2015. But [place]. She has a chronic daily cough productive of occasionally green but usually thick white phlegm. She has chronic dyspnea on exertion. When she first moved here in 2015 she was able to help clean up in the trailer, do laundry, change the sheets on her bed. Get in and out of the tub. In the last few months she has deteriorated. Part of it is being agoraphobic and not wanting to leave the trailer since late 2018, so she has no physical activity. She is terrified of getting COVID-19. Part of it is she feels like her emphysema is getting worse. She cannot do all those activities anymore and has been using a walker. More s edentary. In the last few weeks realizes she can no longer get out of the tub so will no longer be taking a bath. She has an appointment for her first Covid vaccine day after tomorrow. She is asking if she could get the vaccine here. Her son is also asking for copies of her labs. Mom says that it is okay for him to get them because they have a physician friend who will be overlooking the lab results. She was initially evaluated as a possible anginal episode. Initial troponin was 63. EKG was negative. However as her labs came in her potassium was 6.3, creatinine 1.8, lipase 73. Hemoglobin was 4.8 and hematocrit 17.9. Her last hemoglobin in the EMR was 9.8 in January 2018. Prior to that the patient has been between 10.5 to 11.5 g of hemoglobin dating to 2015. She was admitted for acute diverticulitis causing a COPD exacerbation in July 2016. She then had a mild flare of diverticulitis in December 2017.She had a screening colonoscopy in March 2018. Digital rectal exam was negative. Moderate diverticulosis in the sigmoid bowel. No polyps or biopsy seen and she was due to repeat her colonoscopy in 10 years. She does take aspirin and Naprosyn almost on a daily basis. On examination she was afebrile, and heart rate was consistently tachycardic at 111-119. Blood pressure is low at 109/98. This is a patient who can get a systolic over 200 in her primary care provider office. During her stay in the emergency room her lowest blood pressure was 83/55. With hydration, starting a unit of blood she is 99/61 upon transfer to [facility]. She did receive an amp of D50 and 6 units of insulin subcu for the high potassium. Dr. Hill has been consulted for general surgery. He will see the patient for possible upper and lower endoscopy. CT of the abdomen has been considered by Dr. Duarte. He is asking if we could hydrate the patient, give her blood, then do the CT abdomen once her creatinine improves. General medicine service is being asked to admit this patient with general surgery consulting. History - Past Medical History Cardiovascular: reports: Hypertension Respiratory: reports: COPD (Due to tobacco. Admitted for COPD exacerbation July 2016. Dc noctural O2.To do pulmonary rehab or PFTs due to transportation issues), Emphysema (Used to wear percussion vest but she does not like it), Other Neuro: reports: Migraines (Occasional) Endocrine/Autoimmune: reports: None GI: reports: None, Diverticulitis (With admission causing COPD exacerbation July 2016, Flare 12/2017, seen by surgery 01/2018 w admit. 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 Dad in his 50s of diabetes. She has 3 brothers and 1 sister, 1 brother in his 40s from cardiac disease. Sister has had a heart attack and both of her 2 brothers have had heart attacks. Children are healthy without heart attack, cancer, stroke, diabetes but one son has HTN and one son of sudden cardiac after sicking to the bottom of a pool and holding his breath Living arrangement: At home Living Situation: With family Social History Notes: She smoked 1 pack/day for 43 years and quit in August 2012. She seldom drinks, maybe once or twice a year. Before that, she used to drink quite a bit socially in her 20s. But then quit. She also dabbled in recreational substances in her 20s but no IV drugs abuse. She stopped that after 1 or 2 tries because she did not like it. 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 She was moved here to [facility] in 2016 by her son. Live in [place], and then moved to [place] to be with a friend. But it did not work out. So she moved to [facility] when her son bought her, his sister, and his sister's daughter a trailer. They all still live there together. - Substance History Use: Uses substance without health or social issues: NONE Abuse: Recurrent use of substance despite neg consequences: NONE Dependence: Experiences withdrawal or developed tolerances: NONE - POLST Patient has POLST: No POLST Status: DNR (When I describe resuscitation, chest compressions, cardioversion, intubation she does not want that done. However, she does want all measures of treatment to be provided to her up until that point of cardiac arrest or respiratory failure) Meds/Allgy - Home Medications Home Medications: Ambulatory Orders Medication Instructions Recorded Confirmed Albuterol Sulf [Ventolin Hfa 2 puffs INH Q4H PRN #1 inhaler 08/09/16 01/28/21 Inhaler] Aspirin [Adult Aspirin] 81 mg PO DAILY 01/21/18 01/28/21 Ipratropium/Albuterol [Duoneb] 3 ml INH Q6H PRN 01/21/18 01/28/21 Melatonin 5 mg PO QPM 01/21/18 01/28/21 Naproxen Sodium 220 mg PO DAILY PRN 01/21/18 01/28/21 Umeclidinium [place] [Incruse 62.5 mcg INH DAILY 01/21/18 01/28/21 Ellipta] guaiFENesin [Guaifenesin] 400 mg PO Q4H 01/21/18 01/28/21 lisinopriL [Lisinopril] 20 mg PO DAILY 01/21/18 01/28/21 raNITIdine HCL [Ranitidine HCl] 150 mg PO BID 01/21/18 01/28/21 Citalopram [CeleXA] 10 mg PO DAILY 03/16/18 01/28/21 - Allergies Allergies/Adverse Reactions: Allergies Allergy/AdvReac Type Severity Reaction Status Date / Time hydromorphone [From Dilaudid] AdvReac Emesis Verified 01/28/21 19:25 Penicillins AdvReac Hives Verified 01/28/21 19:25 Review of Systems - Constitutional Constitutional: reports: Fatigue, Malaise, Weakness - Eyes Eyes: reports: Vision loss (and needs glasses but hasnt left her house due to Covid). denies: Pain, Irritation, Amaurosis, Blurred vision - Ears, Nose & Throat Ears, Nose & Throat: reports: Hearing loss. denies: Ear pain, Hearing aids, Tinnitus, Vertigo, Nasal pain, Nasal discharge, Sore throat, Hoarseness - Cardiovascular Cariovascular: reports: Chest pain, Lightheadedness, Exertional dyspnea, Decr. exercise tolerance. denies: Edema, Syncope - Respiratory Respiratory: reports: Cough, Sputum production, Wheezing, SOB at rest, SOB with exertion. denies: Snoring, Hemoptysis, Orthopnea - Gastrointestinal Gastrointestinal: reports: Reflux/heartburn (for which she takes H2 lizzie. Nataly aguilar was told that reflux may also be making her COPD worse. No hx of ulcers.). denies: Abdominal pain, Abdominal distention, Constipation, Diarrhea, Change in bowel habits, Black stools, Bloody stools - Genitourinary Genitourinary: reports: Incontinence. denies: Dysuria, Frequency, Urgency - Musculoskeletal Musculoskeletal: reports: Back pain, Joint pain (for which she alternates between tylenol and motrin daily) - Integumentary Integumentary: denies: Rash, Pruritis, Lesions - Neurological Neurological: reports: General weakness, Headache (occasionally), Dizziness (occasionally), Memory problems (minimal, and she attribtues to aging and son endorses she is doing well with that.). denies: Focal weakness, Numbness, Seizures, Incoordination, Slurred speech - Psychiatric Psychiatric: reports: Depression, Anxiety. denies: Suicidal, Delusions, Hallucinations - Endocrine Endocrine: denies: Polyuria, Polydypsia, Polyphagia - Hematologic/Lymphatic Hematologic/Lymphatic: denies: Anemia, Bruising, Petechiae, Blood clots Prior Level of Functionality: She moved in with her daughter due to both financial, logistical, and health reasons. It was getting harder for her to keep track of her medical problems and she was slowing down. Finances were an issue as well. When she first moved in with her daughter and grandchild, she was able to do more. Cleaning, cooking, and able to take care of her own activities of daily living. She has been slowing down and then needed a walker, 24/7 oxygen, and in the last few months has really not been able to do anything other than her own personal hygi jeanie activities of daily living. In the last few weeks she is realize she can no longer get in and out of the tub anymore safely. Exam - Vital Signs Reviewed Vital Signs: Yes Vital Signs: Vital Signs x48h Temp Pulse Pulse Resp BP BP BP 01/28/21 21:05 36.6 C 126 H 22 107/61 05/17/21 20:27 118 H 20 01/28/21 20:18 119 H 18 97/64 01/28/21 19:29 36.9 C 109 H 18 83/55 L 01/28/21 19:25 113 H 18 109/98 H 01/28/21 19:18 109/88 H Pulse Ox 01/28/21 21:05 100 01/28/21 20:27 01/28/21 20:18 01/28/21 19:29 100 01/28/21 19:25 100 01/28/21 19:18 - Physical Exam General Appearance: positive: No acute distress, Alert, Other (5 foot 3 inch female, 96 kg, pale but able to complete full sentences and only has sporadic, intermittent congested cough) Eyes Bilateral: positive: PERRL, EOMI ENT: positive: Pharynx nml, Other (Edentulous) Neck: positive: No JVD. negative: Stiff neck Respiratory: positive: No respiratory distress, Rhonchi (Come and go and clear with a deep cough). negative: Wheezes, Rales Cardiovascular: positive: Regular rate & rhythm, Tachycardia, Systolic murmur. negative: Gallop/S4, Friction rub Peripheral Pulses: positive: 1+ Abdomen: positive: Non-tender, Nml bowel sounds, No distention, Other (Difficult to assess organomegaly due to large abdominal wall pannus). negative: Tenderness Skin: positive: Warm, Dry, Pallor Extremities: positive: Full ROM, No pedal edema. negative: Joint swelling Neurologic/Psychiatric: positive: Oriented x3, CN's nml (2-12), Motor nml Conclusion/Plan - Problem List (1) Symptomatic anemia Conclusion/Plan: Initially her thought was that she was having a cardiac event. She is unclear about why she waited to come to the emergency room and why she canceled her sam ointment with her primary care provider. We think that she is having angina or its equivalent causing the rise in troponin from her severe anemia. Plan: Inpatient status Work-up causes of anemia Transfuse to hemoglobin of close to 8 When she is stable consider an outpatient stress test Due to her strong family history Repeat troponins in 6 hours She did fill out a records release form for the history and physical and labs for this encounter that can be released to her son. (2) Acute on chronic anemia Conclusion/Plan: She has had chronic anemia in the past. This is definitely much worse with this encounter. She has severe iron deficiency. We did a stat iron level and she is 11, TIBC 498, transferrin 356, percent saturation 2%. Differential diagnosis for the chronic anemia is that of chronic blood loss with acute worsening. This could be either from chronic diverticular leaking or gastritis/ulcers on a patient who is on daily combined nonsteroidals. I do not think she has anemia of chronic disease. Her creatinine has been 0.7-0.8 since 2016. Today's creatinine is abruptly higher at 1.8. She does not appear to have any blood dyscrasias on differential. Plan: General surgery consult Start evaluation with Upper and lower endoscopy empiric PPI If no source of bleeding is found, she may need a pill endoscopy. CT of the abdomen will be ordered for tomorrow morning when she has been hydrated, given blood, and creatinine is improved to avoid nephrotoxicity. (3) Hyperkalemia Conclusion/Plan: She is received an amp of D50 and subcutaneous insulin in the emergency room. We will recheck potassium in 4 hours (4) Acute kidney injury Conclusion/Plan: My suspicion is that of acute prerenal azotemia due to hypotension, dehydration. Plan: Repeat labs once she is received blood and hydration Renal ultrasound in the morning If her creatinine does not rebound, consider stopping lisinopril and changing to a nondihydropyridine calcium channel lizzie as opposed to diltiazem for blood pressure (5) COPD without exacerbation Conclusion/Plan: Longstanding duration. On home oxygen. She is on DuoNeb and Ventolin on her med list. In her primary care provider office she is also on Advair. Plan: DuoNeb on a regular schedule Albuterol as needed Pulmicort daily Budesonide daily strongly encouraged to follow thru with PFTs and cardiopulmonary rehab. (6) Hypotension Conclusion/Plan: Female is occasionally noncompliant with her medications. As such most of her blood pressure readings are quite elevated and her primary care provider office and she is actually been over 200 systolic at times. With her hospitalization for diverticulitis she was in the 160s systolic. As such this current blood pressure is quite low for her. At home her medications are lisinopril/d iltiazem, and I will hold those until blood pressure rebounds. Qualifiers: Hypotension type: hypotension due to hypovolemia Qualified Code(s): I95.89 - Other hypotension; E86.1 - Hypovolemia (7) Anxiety Conclusion/Plan: The last year has been very anxiety producing for her. She has not developed a stable relationship with a primary care provider since they keep on quitting in the clinic she goes to. She also is terrified of getting Covid, understandably so, because of her emphysema. Plan: She gets Elavil and citalopram. We will make sure she gets those with her clear liquid diet until midnight. See if we can get a Covid vaccine for her while she is here - Lab Results Lab results reviewed: Yes Fish Bones: 01/28/21 19:09 01/28/21 19:09 - Diagnostic Imaging Results Diagnostic Imaging Results: positive: Final report reviewed - EKG Results EKG Interpreted Independently: No Core Measures - Anticipated LOS I expect patient to be DC'd or transferred within 96 hours.: Yes - DVT/VTE - Prophylaxis VTE/DVT Device ordered at admit?: Yes
[2021-01-28] MEDS ORDERED: ALBUTEROL NEB 2.5 MG/3 ML INH PRN (21:57)
[2021-01-28 21:58] LABS: B. PARAPERTUSSIS- RESP PCR PAN NOT DETECTED; B. PERTUSSIS- RESP PCR PANEL NOT DETECTED; C. PNEUMONIAE- RESP PCR PANEL NOT DETECTED; CORONAVIRUS 229E-RESP PCR NOT DETECTED; CORONAVIRUS HKU1-RESP PCR NOT DETECTED; CORONAVIRUS NL63-RESP PCR NOT DETECTED; CORONAVIRUS OC43-RESP PCR NOT DETECTED; HUMAN METAPNEUMOVIRUS NOT DETECTED; INFLUENZA A- RESP PCR PANEL NOT DETECTED; INFLUENZA B - RESP PCR PANEL NOT DETECTED; M. PNEUMONIAE- RESP PCR PANEL NOT DETECTED; PARAINFLUENZA VIRUS 1 NOT DETECTED; PARAINFLUENZA VIRUS 2 NOT DETECTED; PARAINFLUENZA VIRUS 3 NOT DETECTED; PARAINFLUENZA VIRUS 4 NOT DETECTED; RHINOVIRUS/ENTEROVIRUS NOT DETECTED; RSV- RESP PCR PANEL NOT DETECTED; SARS-CoV-2 -RESP PCR PANEL NOT DETECTED
[2021-01-28] MEDS ORDERED: AMITRIPTYLINE 10 MG TABLET PO SCH (22:00)
[2021-01-28] MEDS: SODIUM CHLORIDE FLUSH 0.9% 10 ML SYRINGE IVP SCH (23:38)
[2021-01-28] MEDS: LACTATED RINGERS 1,000 ML IV SCH (23:39)
[2021-01-29 00:36] LABS: MEAN CORPUSCULAR HEMOGLOBIN 21.2 pg (27.0-31.0); MEAN CORPUSCULAR HGB CONC 27.6 g/dL (32.0-36.0); MEAN CORPUSCULAR VOLUME 76.8 fL (81.0-99.0); MEAN PLATELET VOLUME 9.1 fL (7.9-10.8); RED BLOOD COUNT 2.59 10^6/uL (4.20-5.40); RED CELL DISTRIBUTION WIDTH 25.1 % (12.0-15.0); WHITE BLOOD COUNT 9.9 x10^3/uL (4.8-10.8)
[2021-01-29 00:37] LABS: HCT - HEMATOCRIT 19.9 % (37.0-47.0); HGB - HEMOGLOBIN 5.5 g/dL (12.0-16.0)
[2021-01-29 05:42] LABS: BASOPHILS % (AUTO) 0.4 %; CREATININE 1.4 mg/dL (0.4-1.0); EOSINOPHILS # (AUTO) 0.7 10^3/uL (0.0-0.7); EOSINOPHILS % (AUTO) 7.2 %; HCT - HEMATOCRIT 22.3 % (37.0-47.0); LYMPHOCYTES # (AUTO) 2.1 10^3/uL (1.5-3.5); LYMPHOCYTES % (AUTO) 22.2 %; MEAN CORPUSCULAR HEMOGLOBIN 21.8 pg (27.0-31.0); MEAN CORPUSCULAR HGB CONC 27.8 g/dL (32.0-36.0); MEAN CORPUSCULAR VOLUME 78.2 fL (81.0-99.0); MEAN PLATELET VOLUME 9.1 fL (7.9-10.8); MONOCYTES # (AUTO) 0.7 10^3/uL (0.0-1.0); MONOCYTES % (AUTO) 7.2 %; NEUTROPHILS # (AUTO) 5.8 10^3/uL (1.5-6.6); NEUTROPHILS % (AUTO) 62.2 %; NRBC ABSOLUTE COUNT (AUTO) 0.07 x10^3/uL; NUCLEATED RED BLOOD CELLS AUTO 0.8 /100WBC; PHOSPHORUS 4.9 mg/dL (2.5-4.6); PLT - PLATELET COUNT 366 10^3/uL (130-450); POTASSIUM 5.8 mmol/L (3.5-5.0); RED BLOOD COUNT 2.85 10^6/uL (4.20-5.40); RED CELL DISTRIBUTION WIDTH 23.6 % (12.0-15.0); WHITE BLOOD COUNT 9.3 x10^3/uL (4.8-10.8)
[2021-01-29 05:47] LABS: HGB - HEMOGLOBIN 6.2 g/dL (12.0-16.0); SLIDE REVIEW? Indicated
[2021-01-29 06:06] LABS: PLATELET MORPHOLOGY NORMAL APPEARANCE (NORMAL)
[2021-01-29 06:07] LABS: PLATELET ESTIMATE, MANUAL NORMAL (130-450,000) (NORMAL); WBC MORPHOLOGY (MULTIPLE) NORMAL APPEARANCE (NORMAL)
[2021-01-29] MEDS ORDERED: FORMOTEROL FUMARATE NEB 20 MCG/2 ML INH SCH (07:00)
[2021-01-29] MEDS ORDERED: BUDESONIDE 0.5 MG/2 ML NEB INH SCH (07:00)
[2021-01-29] MEDS ORDERED: IPRATROPIUM/ALBUTEROL 3 ML NEB INH SCH (07:00)
[2021-01-29] MEDS ORDERED: GI COCKTAIL 120 ML BOTTLE PO PRN (07:40)
[2021-01-29] MEDS ORDERED: [UNRECOGNIZED DRUG - OTHER] IM ONE ×2 (08:00→16:00)
[2021-01-29] MEDS ORDERED: GI COCKTAIL 120 ML BOTTLE PO ONE (08:00)
[2021-01-29] MEDS: LACTATED RINGERS 1,000 ML IV SCH (08:40)
--- NOTE | 2021-01-29 08:57 | HISTORY & PHYSICAL EXAMINATION ---
Chief Complaint - Chief Complaint Chief Complaint: chest pain with walking History of Present Illness - Admitted From Admitted From:: ED - History Obtained From Records Reviewed: yes History obtained from: pt Exam Limitations: none - History of Present Illness HPI Comment/Other: She was having significant chest pain with walking. She was seen and evaluated in the ED. She was found to be severely anemic. By chart review she had mild anemia in 2018. She denies upper or lower intestinal symptoms. She had a bm 2 days ago which was normal. She has not noticed bloody stool or dark stool. She denies trouble swallowing, pain on swallowing, etc. She was admitted in 2018 for diverticulitis and later had a colonoscopy. No polyps. She has significant copd and is on home O2. She feels much improved today after 2 units. By nurse report she is to receive 2 more units today. She was taking aspirin. Denies taking nsaids or antacids. History - Past Medical History Cardiovascular: reports: Hypertension Respiratory: reports: COPD (Due to tobacco. Admitted for COPD exacerbation July 2016. Dc noctural O2.To do pulmonary rehab or PFTs due to transportation issues), Emphysema (Used to wear percussion vest but she does not like it), Other Neuro: reports: Migraines (Occasional) Endocrine/Autoimmune: reports: None GI: reports: None, Diverticulitis (With admission causing COPD exacerbation July 2016, Flare 12/2017, seen by surgery 01/2018 w admit. 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 Dad in his 50s of diabetes. She has 3 brothers and 1 sister, 1 brother in his 40s from cardiac disease. Sister has had a heart attack and both of her 2 brothers have had heart attacks. Children are healthy without heart attack, cancer, stroke, diabetes but one son has HTN and one son of sudden cardiac after sicking to the bottom of a pool and holding his breath Living arrangement: At home Living Situation: With family Social History Notes: She smoked 1 pack/day for 43 years and quit in August 2012. She seldom drinks, maybe once or twice a year. Before that, she used to drink quite a bit socially in her 20s. But then quit. She also dabbled in recreational substances in her 20s but no IV drugs abuse. She stopped that after 1 or 2 tries because she did not like it. 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 She was moved here to [facility] in 2016 by her son. Live in [place], and then moved to [place] to be with a friend. But it did not work out. So she moved to [facility] when her son bought her, his sister, and his sister's daughter a trailer. They all still live there together. - Substance History Use: Uses substance without health or social issues: NONE Abuse: Recurrent use of substance despite neg consequences: NONE Dependence: Experiences withdrawal or developed tolerances: NONE - POLST Patient has POLST: No POLST Status: DNR (When I describe resuscitation, chest compressions, cardioversion, intubation she does not want that done. However, she does want all measures of treatment to be provided to her up until that point of cardiac arrest or respiratory failure) Meds/Allgy - Home Medications Home Medications: Ambulatory Orders Medication Instructions Recorded Confirmed Albuterol Sulf [Ventolin Hfa 2 puffs INH Q4H PRN #1 inhaler 08/09/16 01/28/21 Inhaler] Aspirin [Adult Aspirin] 81 mg PO DAILY 01/21/18 01/28/21 Ipratropium/Albuterol [Duoneb] 3 ml INH Q6H PRN 01/21/18 01/28/21 Melatonin 5 mg PO QPM 01/21/18 01/28/21 Naproxen Sodium 220 mg PO DAILY PRN 01/21/18 01/28/21 Umeclidinium [place] [Incruse 62.5 mcg INH DAILY 01/21/18 01/28/21 Ellipta] guaiFENesin [Guaifenesin] 400 mg PO Q4H 01/21/18 01/28/21 lisinopriL [Lisinopril] 20 mg PO DAILY 01/21/18 01/28/21 raNITIdine HCL [Ranitidine HCl] 150 mg PO BID 01/21/18 01/28/21 Citalopram [CeleXA] 10 mg PO DAILY 03/16/18 01/28/21 - Allergies Allergies/Adverse Reactions: Allergies Allergy/AdvReac Type Severity Reaction Status Date / Time hydromorphone [From Dilaudid] AdvReac Emesis Verified 01/28/21 19:25 Penicillins AdvReac Hives Verified 01/28/21 19:25 Review of Systems - Other Findings Other Findings: 10 pt ros as above otherwise unremarkable Exam - Vital Signs Reviewed Vital Signs: Yes Vital Signs: Vital Signs x48h Temp Pulse Pulse Resp BP BP Pulse Ox 01/29/21 08:01 36.9 C 98 18 86/63 L 100 01/29/21 06:24 110 H 18 01/29/21 05:56 110 H 86/49 L 01/29/21 04:55 36.7 C 99 18 100 01/29/21 04:14 36.7 C 99 18 90/52 L 100 01/29/21 03:46 36.9 C 98 20 77/46 L 01/29/21 01:40 36.8 C 102 H 86/58 L 01/29/21 01:30 36.8 C 101 H 20 86/58 L 01/29/21 01:14 37 C 101 H 20 79/49 L 01/29/21 00:58 36.8 C 102 H 20 83/49 L - Physical Exam General Appearance: positive: No acute distress, Alert Eyes Bilateral: positive: PERRL ENT: positive: No signs of dehydration Neck: positive: No JVD Respiratory: positive: No respiratory distress Abdomen: positive: Non-tender, No distention Extremities: positive: No pedal edema Neurologic/Psychiatric: positive: Oriented x3 Conclusion/Plan - Problem List (1) Acute on chronic anemia Conclusion/Plan: She is improving with medical care. She was having chest pain. She is still hypotensive. She does not have active bleeding clinically. Agree with medical management. She had a colonoscopy in 2018. No polyps. Consider EGD tomorrow 01/30/2021 if her vital signs are improved. I don't believe an urgent EGD is indicated or would change management manager. - Lab Results Lab results reviewed: Yes Fish Bones: 01/29/21 05:21 01/29/21 05:21
[2021-01-29] MEDS ORDERED: PANTOPRAZOLE 40 MG in SODIUM CHLORIDE 0.9% 100ML 100 ML IV SCH (09:00)
[2021-01-29] MEDS ORDERED: PANTOPRAZOLE 40 MG VIAL IVP SCH (09:00)
[2021-01-29] MEDS ORDERED: CITALOPRAM 10 MG TABLET PO SCH (09:00)
[2021-01-29] MEDS: SODIUM CHLORIDE FLUSH 0.9% 10 ML SYRINGE IVP SCH (09:25)
[2021-01-29] MEDS ORDERED: DOPamine 800 MG/500 ML 800 MG/500 ML BAG IV SCH ×2 (11:00→12:12)
--- NOTE | 2021-01-29 11:44 | DISCHARGE SUMMARY ---
Discharge Summary Admit Date: 01/28/21 Discharge Date: 01/29/21 Discharging Provider: Dex Gipson Primary Care Provider: Neda Wen Code Status: Attempt Resuscitation Condition at Discharge: Stable Discharge Disposition: 02 Transfer Acute Care Hosp Discharge Facility Name: [facility] - DIAGNOSES Discharge Diagnoses with Status of Each Condition: (1)NSTEM She had chest pain over months. Her troponin test was over 400, EKG present ST depression significantly shown at V5 and V6. repeat EKG show improved. At this point, ECHO could not be done. pt also presented hypotension and tachycardia. pt had significant anemia and likely caused by GI bleed. At this point pt is at the difficult position to have blood thinner. Called [facility] small business representative and relief driller, both kindly accepted pt. Thank both help care of this pt! (2) Symptomatic anemia she had HGB 4.8 at admission. she had two unit of blood then HGB is 6.2. she will have another two units of blood transfusion of blood. It is likely caused by her GI bleed. she took baby aspirin and Naproxen at home. pt report she feel better after she had blood transfusion. pt may need GI consult (3) Hyperkalemia improved. her potassium was 6.3 at admission, then her potassium is down to 5.8 after she had 6 unit of insulin. (4) Acute kidney injury she had 1.8 creatinine at the admission then down to 1.4 after IVF, suspicion is that of acute prerenal azotemia (5) COPD without exacerbation she has On home oxygen 2 lpm. She is on DuoNeb and Ventolin on her med list. (6) Hypotension her SBP is down to middle of 80 from 109 at the admission, it is likely from her acute NSTEM plus significant anemia with volume depletion. after discussed with small business representative in [facility], pt was suggested to have vasopressor, her BP is gra dually improved. pt also had four unit of blood transfusion to help remain her Homedynamically stable. (7) Anxiety stable. - HPI History of Present Illness: refer from Dr. Hall's HPI on 01/28/21 Her chest pain is described as a burning feeling in the center of her chest. It goes down her arms all the way to her hands. It is worse with trying to walk, or do chores. Eating does not make it worse. Goes away with rest. Will last 3 to 5 minutes at a time. There is no nausea, diaphoresis, palpitations, orthopnea or edema with this. She has no previous history of cardiac disease and risk factors include age, hypertension, and family history. She has been disabled due to COPD for close to a decade now. She has been on home O2 since 2015. If it falls off in her sleep, she desats to 70s. She had the chest pain since early December 2020. She called her primary care provider's office for advice and at that time the pain was not so frequent or heavy. The pain she describes today is the same pain she described by phone then. She did not want to go to the ER and asked to make an appointment. But they called her back and cancelled her appointment since the provider quit and left. She says that that has been one of the most difficult things about moving here. She has lost so many providers since 2015. But [place]. She has a chronic daily cough productive of occasionally green but usually thick white phlegm. She has chronic dyspnea on exertion. When she first moved here in 2015 she was able to help clean up in the trailer, do laundry, change the sheets on her bed. Get in and out of the tub. In the last few months she has deteriorated. Part of it is being agoraphobic and not wanting to leave the trailer since late 2018, so she has no physical activity. She is terrified of getting COVID-19. Part of it is she feels like her emphysema is getting worse. She cannot do all those activities anymore and has been using a walker. More sedentary. In the last few weeks realizes she can no longer get out of the tub so will no longer be taking a bath. She has an appointment for her first Covid vaccine day after tomorrow. She is asking if she could get the vaccine here. Her son is also asking for copies of her labs. Mom says that it is okay for him to get them because they have a physician friend who will be overlooking the lab results. She was initially evaluated as a possible anginal episode. Initial troponin was 63. EKG was negative. However as her labs came in her potassium was 6.3, creatinine 1.8, lipase 73. Hemoglobin was 4.8 and hematocrit 17.9. Her last hemoglobin in the EMR was 9.8 in January 2018. Prior to that the patient has been between 10.5 to 11.5 g of hemoglobin dating to 2015. She was admitted for acute diverticulitis causing a COPD exacerbation in July 2016. She then had a mild flare of diverticulitis in December 2017.She had a screening colonoscopy in March 2018. Digital rectal exam was negative. Moderate diverticulosis in the sigmoid bowel. No polyps or biopsy seen and she was due to repeat her colonoscopy in 10 years. She does take aspirin and Naprosyn almost on a daily basis. On examination she was afebrile, and heart rate was consistently tachycardic at 111-119. Blood pressure is low at 109/98. This is a patient who can get a systolic over 200 in her primary care provider office. During her stay in the emergency room her lowest blood pressure was 83/55. With hydration, starting a unit of blood she is 99/61 upon transfer to [facility]. She did receive an amp of D50 and 6 units of insulin subcu for the high potassium. Dr. Hill has been consulted for general surgery. He will see the patient for possible upper and lower endoscopy. CT of the abdomen has been considered by Dr. Duarte. He is asking if we could hydrate the patient, give her blood, then do the CT abdomen once her creatinine improves. General medicine service is being asked to admit this patient with general surgery consulting. - HOSPITAL COURSE Hospital Course: She was admitted for chest pain, weakness. Patient was found to have significant anemia, patient was consulted with GI surgeon. Patient had 4 unit blood transfusion in the hospital. Patient was also found significantly elevated troponin, EKG has ST depression changes, Hypotensive with Tachycardia. Discussed the case with [facility] small business representative and relief driller, Both kindly accepted patient. Patient was transferred to [facility] for higher level of care. - ALLERGIES Allergies/Adverse Reactions: Allergies Allergy/AdvReac Type Severity Reaction Status Date / Time hydromorphone [From Dilaudid] AdvReac Emesis Verified 01/28/21 19:25 Penicillins AdvReac Hives Verified 01/28/21 19:25 - MEDICATIONS Home Medications: Ambulatory Orders Medication Instructions Recorded Confirmed Albuterol Sulf [Ventolin Hfa 2 puffs INH Q4H PRN #1 inhaler 08/09/16 01/28/21 Inhaler] Aspirin [Adult Aspirin] 81 mg PO DAILY 01/21/18 01/28/21 Ipratropium/Albuterol [Duoneb] 3 ml INH Q6H PRN 01/21/18 01/28/21 Melatonin 5 mg PO QPM 01/21/18 01/28/21 Naproxen Sodium 220 mg PO DAILY PRN 01/21/18 01/28/21 Umeclidinium [place] [Incruse 62.5 mcg INH DAILY 01/21/18 01/28/21 Ellipta] guaiFENesin [Guaifenesin] 400 mg PO Q4H 01/21/18 01/28/21 lisinopriL [Lisinopril] 20 mg PO DAILY 01/21/18 01/28/21 raNITIdine HCL [Ranitidine HCl] 150 mg PO BID 01/21/18 01/28/21 Citalopram [CeleXA] 10 mg PO DAILY 03/16/18 01/28/21 - PHYSICAL EXAM AT DISCHARGE General Appearance: positive: Alert, Mild distress. negative: Lethargic Eyes Bilateral: positive: Normal inspection, PERRL, No lid inflammation ENT: positive: ENT inspection nml, No signs of dehydration. negative: Purulent nasal drainage Neck: positive: Nml inspection, Trachea midline. negative: Thyromegaly, Tracheal deviation Respiratory: positive: Chest non-tender. negative: Wheezes, Rales Cardiovascular: positive: Regular rate & rhythm, Tachycardia. negative: Bradycardia, Systolic murmur, Diastolic murmur Peripheral Pulses: positive: 2+ Abdomen: positive: Non-tender, Nml bowel sounds, No distention. negative: Tend erness Back: positive: Nml inspection Skin: positive: Color nml, Warm, Dry. negative: Cyanosis, Diaphoresis Extremities: positive: Non-tender, Nml appearance. negative: Calf tenderness Neurologic/Psychiatric: positive: Oriented x3, Sensation nml, Mood/affect nml. negative: Weakness, Sensory loss, Facial droop, Slurred/abnml speech, Depressed mood/affect - LABS Result Diagrams: 01/29/21 05:21 01/29/21 05:21 - FOLLOW UP Follow Up: pt Is transferred to [facility] for higher level of care - TIME SPENT Time Spent in Discharge (Minutes): 30
--- NOTE | 2021-01-29 13:35 | CONSULTATION NOTE ---
Consultation Report: Call for CVL after repeated low BPs and limited IV access for GI bleed, STEMI patient requiring blood transfusion, possibly pressors. Pt found sitting at edge of bed, no complaints of pain, states she feels weak after being up to bedside commode. CVL procedure explained and consent obtained. Pt to supine and prep/drape. Unable to identify L or R IJ with US despite extreme Tberg positioning and easily identifiable carotid arteries bilaterally. Pt does not tolerate Tberg positioning for breathing. Attempt to locate either IJ vessel x 4 mins with position change and head turning. Abort CVL placement. Internal medicine notified. Ultrasound used to place 20ga 1.88" at R basilic v. attempt x1. Easily aspirates and flushes blood after cap placed. Secured, pt tolerated procedure without complication, complaint.
[2021-01-29 14:04] VITALS: BP 121/67
== END 2021-01-29 14:15 | disposition short-term general hospital (02) | DRG 281 ==
LOC: EDUNIT# → ED 18:54 → SUPCPDRO 18:54 → MS2 20:02 → ICU 01-29 11:00
PROVIDERS: ADMIT Specialist; ATTEND Nurse Practitioner Gerontology
PROC: 30233N1 Transfusion of Nonautologous Red Blood Cells into Peripheral Vein, Percutaneous Approach (ICD-10-PCS; 2021-01-28)
PROC: 30233N1 Transfusion of Nonautologous Red Blood Cells into Peripheral Vein, Percutaneous Approach (ICD-10-PCS; principal; 2021-01-29)
PROC: 05HY33Z Insertion of Infusion Device into Upper Vein, Percutaneous Approach (ICD-10-PCS; 2021-01-29)
DX: D64.9 Anemia, unspecified (principal); I21.4 Non-ST elevation (NSTEMI) myocardial infarction; D62 Acute posthemorrhagic anemia; R77.8 Other specified abnormalities of plasma proteins; N17.9 Acute kidney failure, unspecified; E61.1 Iron deficiency; Z20.822 Contact with and (suspected) exposure to COVID-19; E87.5 Hyperkalemia; J43.9 Emphysema, unspecified; I95.89 Other hypotension; E86.1 Hypovolemia; F41.9 Anxiety disorder, unspecified; T46.5X6A Underdosing of other antihypertensive drugs, initial encounter; Z99.81 Dependence on supplemental oxygen; Z66 Do not resuscitate; Z79.899 Other long term (current) drug therapy; Z82.49 Family history of ischemic heart disease and other diseases of the circulatory system; Z87.891 Personal history of nicotine dependence; R00.0 Tachycardia, unspecified; Z79.82 Long term (current) use of aspirin; Z79.1 Long term (current) use of non-steroidal anti-inflammatories (NSAID); R05 Cough; F40.00 Agoraphobia, unspecified
CPT/HCPCS: 36415; 71045; 80048; 80053; 83540; 83690; 84100; 84132; 84466; 84484; 85025; 85027; 86850; 86900; 86901; 86920; 87150; 87631; 93005; 94640; 99285; A9270; J1815; J7120; J7626; P9016; 0202U; 82272; 85014; 85018

== ENCOUNTER 2021-03-06 13:25 | Inpatient (IN) | payer MEDICARE, MEDICAID ==
[2021-03-06] MEDS ORDERED: NITROGLYCERIN SL 0.4 MG TABLET SL STA (13:54)
[2021-03-06] MEDS ORDERED: ASPIRIN CHEW 81 MG TABLET PO STA (13:54)
[2021-03-06] MEDS ORDERED: HYDROmorphone 1 MG/ML CARPUJECT IVP STA (14:17)
[2021-03-06] MEDS ORDERED: ONDANSETRON 4 MG/2 ML VIAL IVP STA (14:18)
--- NOTE | 2021-03-06 14:21 | ED Physician Documentation ---
History of Present Illness - Stated complaint Stated Complaint: SOA POST SURGERY - Chief complaint Chief Complaint: Resp - History obtained from History obtained from: Patient - Additonal information Additional information: Patient comes emergency department chief complaint of chest pain and cough after being released from [facility] [place], status post quadruple bypass on February 14. Patient was just released yesterday and states that she thinks the underlying issue is that she got behind on her pain control. She states she has a substernal and sternal pain that is worse with deep breaths. She states that she is not having any associated nausea or dyspnea that seems new. Patient has a history of COPD and is on supplemental oxygen [id number] at home at rate of 2 L. However, patient states that she was having a hard time keeping her sats above 87 on her usual oxygen, so she bumped her oxygen up to 4 L last night. Patient denies any new edema in her lower extremities. Her vein harvesting incision sites have been stable. She states does not know exactly what she was on for pain while in the hospital but states that she was given both IV and oral pain medication. She states she has had 1 dose of morphine and 1 dose of oxycodone since coming home yesterday afternoon. No fevers or chills no other complaints at this time. Review of Systems Ten Systems: 10 systems reviewed and negative Constitutional: reports: Reviewed and negative Eyes: reports: Reviewed and negative Ears: reports: Reviewed and negative Nose: reports: Reviewed and negative Throat: reports: Reviewed and negative Cardiac: reports: Chest pain / pressure, Pedal edema Respiratory: reports: Dyspnea, Cough GI: reports: Reviewed and negative : reports: Reviewed and negative Skin: reports: Reviewed and negative Musculoskeletal: reports: Reviewed and negative Neurologic: reports: Reviewed and negative Psychiatric: reports: Reviewed and negative Endocrine: reports: Reviewed and negative Immunocompromised: reports: Reviewed and negative PD PAST MEDICAL HISTORY - Past Medical History Cardiovascular: Hypertension Respiratory: COPD (Due to tobacco. Admitted for COPD exacerbation July 2016. Dc noctural O2.To do pulmonary rehab or PFTs due to transportation issues), Emphysema (Used to wear percussion vest but she does not like it), Other Neuro: Migraines (Occasional) Endocrine/Autoimmune: None GI: None, Diverticulitis (With admission causing COPD exacerbation July 2016, Flare 12/2017, seen by surgery 01/2018 w admit. 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: Tubal ligation - Present Medications Home Medications: Ambulatory Orders Medication Instructions Recorded Confirmed Albuterol Sulf [Ventolin Hfa 2 puffs INH Q4H PRN #1 inhaler 08/09/16 01/28/21 Inhaler] Aspirin [Adult Aspirin] 81 mg PO DAILY 01/21/18 01/28/21 Ipratropium/Albuterol [Duoneb] 3 ml INH Q6H PRN 01/21/18 01/28/21 Melatonin 5 mg PO QPM 01/21/18 01/28/21 Naproxen Sodium 220 mg PO DAILY PRN 01/21/18 01/28/21 Umeclidinium [place] [Incruse 62.5 mcg INH DAILY 01/21/18 01/28/21 Ellipta] guaiFENesin [Guaifenesin] 400 mg PO Q4H 01/21/18 01/28/21 lisinopriL [Lisinopril] 20 mg PO DAILY 01/21/18 01/28/21 raNITIdine HCL [Ranitidine HCl] 150 mg PO BID 01/21/18 01/28/21 Citalopram [CeleXA] 10 mg PO DAILY 03/16/18 01/28/21 - Allergies Allergies/Adverse Reactions: Allergies Allergy/AdvReac Type Severity Reaction Status Date / Time hydromorphone [From Dilaudid] AdvReac Emesis Verified 03/06/21 13:39 Penicillins AdvReac Hives Verified 03/06/21 13:39 - Social History Does the pt smoke?: Yes Smoking Status: Former smoker - POLST Patient has POLST: No POLST Status: DNR (When I describe resuscitation, chest compressions, cardi oversion, intubation she does not want that done. However, she does want all measures of treatment to be provided to her up until that point of cardiac arrest or respiratory failure) PD ED PE NORMAL - Vitals Vital signs reviewed: Yes - General General: Alert and oriented X 3, No acute distress, Well developed/nourished - HEENT HEENT: Atraumatic, PERRL, EOMI, Moist mucous membranes - Neck Neck: Supple, no meningeal sign - Cardiac Cardiac: RRR, No murmur - Respiratory Respiratory: No respiratory distress, Clear bilaterally - Abdomen Abdomen: Soft, Non tender, Non distended - Derm Derm: Warm and dry, Other (Median sternotomy incision site with multiple caden in place appears clean dry and intact. No erythema that appears concerning spreading from the wound. No wound dehiscence. Bilateral lower extremity incision sites from vein harvesting appear clean dry and intact. ) - Extremities Extremities: No deformity, Other (1+ pitting edema bilaterally slightly worse on the left leg where more of the vein harvesting took place.) - Neuro Neuro: Alert and oriented X 3, No sensory deficit - Psych Psych: Normal mood, Normal affect Results - Vitals Vitals: Vital Signs - 24 hr 03/06/21 03/06/21 03/06/21 13:32 14:19 15:36 Temperature 36.0 C L Heart Rate 76 74 72 Respiratory 20 20 18 Rate Blood Pressure 128/57 L 110/62 O2 Saturation 97 98 Oxygen O2 Source Nasal cannula - EKG (time done) 1344 Rate: Rate (enter#) (75) Rhythm: NSR [place]: Normal Intervals: Normal [place] QRS: Normal Ischemia: Normal ST segments. No: T wave inversion Compare to prior EKG: Old EKG unavailable Computer interpretation: Agree with computer - Labs Labs: Laboratory Tests 03/06/21 03/06/21 03/06/21 14:13 14:13 14:13 WBC 9.2 RBC 3.09 L Hgb 8.6 L Hct 29.5 L MCV 95.5 MCH 27.8 MCHC 29.2 L RDW 19.8 H Plt Count 577 H MPV 9.7 Neut # (Auto) 7.1 H Lymph # (Auto) 0.9 L [place] # (Auto) 0.7 Eos # (Auto) 0.4 Baso # (Auto) 0.0 Absolute Nucleated RBC 0.02 Nucleated RBC % 0.2 PT 15.3 H INR 1.4 H Sodium 135 Potassium 4.2 Chloride 98 L Carbon Dioxide 28 Anion Gap 9.0 BUN 29 H Creatinine 1.0 Estimated GFR (MDRD) 55 L Glucose 106 H Calcium 9.1 Total Bilirubin 0.8 AST 24 ALT 49 Alkaline Phosphatase 114 Troponin I High Sens B-Natriuretic Peptide Total Protein 6.8 Albumin 3.3 Globulin 3.5 Albumin/Globulin Ratio 0.9 L Lipase 23 03/06/21 03/06/21 03/06/21 14:13 14:13 17:01 WBC RBC Hgb Hct MCV MCH MCHC RDW Plt Count MPV Neut # (Auto) Lymph # (Auto) [place] # (Auto) Eos # (Auto) Baso # (Auto) Absolute Nucleated RBC Nucleated RBC % PT INR Sodium Potassium Chloride Carbon Dioxide Anion Gap BUN Creatinine Estimated GFR (MDRD) Glucose Calcium Total Bilirubin AST ALT Alkaline Phosphatase Troponin I High Sens 16.7 H* 16.2 H* B-Natriuretic Peptide 632 H Total Protein Albumin Globulin Albumin/Globulin Ratio Lipase 03/06/21 17:38 WBC 8.4 RBC 2.99 L Hgb 8.4 L Hct 28.6 L MCV 95.7 MCH 28.1 MCHC 29.4 L RDW 19.4 H Plt Count 576 H MPV 9.7 Neut # (Auto) 6.1 Lymph # (Auto) 1.1 L [place] # (Auto) 0.8 Eos # (Auto) 0.4 Baso # (Auto) 0.0 Absolute Nucleated RBC 0.02 Nucleated RBC % 0.2 PT INR Sodium Potassium Chloride Carbon Dioxide Anion Gap BUN Creatinine Estimated GFR (MDRD) Glucose Calcium Total Bilirubin AST ALT Alkaline Phosphatase Troponin I High Sens B-Natriuretic Peptide Total Protein Albumin Globulin Albumin/Globulin Ratio Lipase - Rads (name of study) chest XR Radiology: Final report received, EMP read indepedently, See rad report (Moderate left pleural effusion and congestive changes with left lower lobe atelectasis. Trace right pleural effusion.) PD MEDICAL DECISION MAKING - ED course Complexity details: reviewed results, re-evaluated patient, considered differential, d/w patient, d/w family ED course: Patient was treated symptomatically with IV Dilaudid and worked up for her chest pain And shortness of breath. At her request, she was given a DuoNeb and reported some relief after that. The patient was found to have an elevated BNP at over 600 and a moderate left pleural effusion with some cardiomegaly., On chest x-ray. Her EKG was unremarkable. The patient had some edema which could be postoperative but I suspected a postoperative CHF exacerbation, as well. The patient was able to ambulate about the emergency department for a specific walk test, but was quite dyspneic afterward. Her oxygen saturation was supplemental O2 was still in the mid 90s, but did take the patient several minutes to recover. I spoke with the patient about her symptoms and her situation at home, and she was concerned that she does not feel her daughter can take care of her because the daughter is unavailable at night due to the daughter having a special needs child that requires a lot of her attention. Patient did have a friend who was going to be around to help her, but the friend has to leave for [place] tomorrow and will not be available starting [facility]. The patient's follow-up with her cardiothoracic surgeon is not till March 19. The patient had requested a nebulizer machine as the patient had received nebs while admitted and stated they were more helpful than her inhaler. As such, I ordering a home nebulizer machine to administer bronchodilators to treat her COPD. This is scheduled to arrive on Thursday. However, given that the patient seemed to be having a CHF exacerbation was not able to care for herself at home and did not have adequate help, I felt that she should be admitted to the hospital. I spoke with Dr. Posada, who did see the patient and agree to admit her for her CHF exacerbation. Departure - Departure Disposition: [facility] DC/Xfer Clinical Impression: Congestive heart failure Qualifiers: Heart failure type: unspecified Heart failure chronicity: acute on chronic Qualified Code(s): I50.9 - Heart failure, unspecified Condition: Serious
[2021-03-06 14:22] LABS: BASOPHILS % (AUTO) 0.2 %; EOSINOPHILS # (AUTO) 0.4 10^3/uL (0.0-0.7); HCT - HEMATOCRIT 29.5 % (37.0-47.0); HGB - HEMOGLOBIN 8.6 g/dL (12.0-16.0); LYMPHOCYTES # (AUTO) 0.9 10^3/uL (1.5-3.5); LYMPHOCYTES % (AUTO) 9.9 %; MEAN CORPUSCULAR HEMOGLOBIN 27.8 pg (27.0-31.0); MEAN CORPUSCULAR HGB CONC 29.2 g/dL (32.0-36.0); MEAN CORPUSCULAR VOLUME 95.5 fL (81.0-99.0); MEAN PLATELET VOLUME 9.7 fL (7.9-10.8); MONOCYTES # (AUTO) 0.7 10^3/uL (0.0-1.0); NEUTROPHILS # (AUTO) 7.1 10^3/uL (1.5-6.6); NEUTROPHILS % (AUTO) 77.4 %; NRBC ABSOLUTE COUNT (AUTO) 0.02 x10^3/uL; NUCLEATED RED BLOOD CELLS AUTO 0.2 /100WBC; PLT - PLATELET COUNT 577 10^3/uL (130-450); RED BLOOD COUNT 3.09 10^6/uL (4.20-5.40); RED CELL DISTRIBUTION WIDTH 19.8 % (12.0-15.0); WHITE BLOOD COUNT 9.2 x10^3/uL (4.8-10.8)
--- NOTE | 2021-03-06 14:22 | XRAY Report ---
PROCEDURE: Chest 1 View X-Ray INDICATIONS: Chest Pain TECHNIQUE: One view of the chest was acquired. COMPARISON: 01/28/2021 FINDINGS: Surgical changes and devices: Median sternotomy wires and surgical clips are seen.. Lungs and pleura: There is pulmonary vascular congestion. Moderate size left pleural effusion and tra ce right pleural effusion are seen. There is left lower lobe atelectasis. No gross pneumothorax. Mediastinum: Mediastinal contours appear normal. Heart size is enlarged. Bones and chest wall: No suspicious bony lesions. Overlying soft tissues appear unremarkable. IMPRESSION: Congestive changes and moderate size left pleural effusion with left lower lobe atelectasis. Trace ri ght pleural effusion. No gross pneumothorax. Reviewed by: Epifanio Jenkins MD on 03/06/2021 2:21 PM PDT Approved by: Epifanio Jenkins MD on 03/06/2021 2:21 PM PDT Station ID: [id number]
[2021-03-06 14:31] LABS: INR 1.4 (0.8-1.2); PT - PROTHROMBIN TIME 15.3 secs (9.9-12.6)
[2021-03-06 14:36] LABS: ALBUMIN 3.3 g/dL (3.2-5.5); ALBUMIN/GLOBULIN RATIO 0.9 (1.0-2.2); BILIRUBIN,TOTAL 0.8 mg/dL (0.2-1.0); CALCIUM 9.1 mg/dL (8.5-10.3); POTASSIUM 4.2 mmol/L (3.5-5.0); TOTAL PROTEIN 6.8 g/dL (6.7-8.2)
[2021-03-06] MEDS ORDERED: MORPHINE 10 MG/ML VIAL IVP STA ×2 (14:55→16:08)
[2021-03-06] MEDS ORDERED: IPRATROPIUM/ALBUTEROL 3 ML NEB INH STA (15:14)
[2021-03-06 17:44] LABS: BASOPHILS % (AUTO) 0.4 %; EOSINOPHILS # (AUTO) 0.4 10^3/uL (0.0-0.7); EOSINOPHILS % (AUTO) 4.4 %; HCT - HEMATOCRIT 28.6 % (37.0-47.0); HGB - HEMOGLOBIN 8.4 g/dL (12.0-16.0); LYMPHOCYTES # (AUTO) 1.1 10^3/uL (1.5-3.5); LYMPHOCYTES % (AUTO) 12.9 %; MEAN CORPUSCULAR HEMOGLOBIN 28.1 pg (27.0-31.0); MEAN CORPUSCULAR HGB CONC 29.4 g/dL (32.0-36.0); MEAN CORPUSCULAR VOLUME 95.7 fL (81.0-99.0); MEAN PLATELET VOLUME 9.7 fL (7.9-10.8); MONOCYTES # (AUTO) 0.8 10^3/uL (0.0-1.0); MONOCYTES % (AUTO) 8.9 %; NEUTROPHILS # (AUTO) 6.1 10^3/uL (1.5-6.6); NEUTROPHILS % (AUTO) 72.9 %; NRBC ABSOLUTE COUNT (AUTO) 0.02 x10^3/uL; NUCLEATED RED BLOOD CELLS AUTO 0.2 /100WBC; PLT - PLATELET COUNT 576 10^3/uL (130-450); RED BLOOD COUNT 2.99 10^6/uL (4.20-5.40); RED CELL DISTRIBUTION WIDTH 19.4 % (12.0-15.0); WHITE BLOOD COUNT 8.4 x10^3/uL (4.8-10.8)
[2021-03-06] MEDS ORDERED: ONDANSETRON ODT 4 MG TABLET TL PRN (20:44)
[2021-03-06] MEDS ORDERED: oxyCODONE 5 MG TABLET PO PRN (20:44)
[2021-03-06] MEDS ORDERED: ONDANSETRON 4 MG/2 ML VIAL IVP PRN (20:44)
[2021-03-06] MEDS ORDERED: FUROSEMIDE 40 MG/4 ML VIAL IVP STA (20:47)
--- NOTE | 2021-03-06 20:55 | HISTORY & PHYSICAL EXAMINATION ---
Chief Complaint - Chief Complaint Chief Complaint: Shortness of breath, chest pain, and weakness History of Present Illness - Admitted From Admitted From:: Home - History Obtained From Records Reviewed: Yes History obtained from: Patient, Son, ER Physician, EMR - History of Present Illness HPI Comment/Other: This is a pleasant 65-year-old female with a past medical history significant for COPD on 2 L of oxygen, coronary artery disease status post CABG a few weeks ago, depression who presents today complaining of shortness of breath, chest pain and weakness. She states she was discharged from [facility] yesterday morning after being hospitalized for more than 1 month. She was admitted here last month initially and found to be anemic with a hemoglobin in the 4's as well as an elevated troponin of nearly 500. She was ultimately transferred to [facility] where she underwent an EGD which confirmed an ulcer. This was likely due to the use of her NSAIDs at that time. She then had an angiogram which showed multivessel disease and ultimately underwent control of bypass on February 14. Her hospital course was prolonged due to weakness and physical deconditioning. She was diagnosed with pneumonia prior to discharge and was sent home on [facility] to complete 5 more days of therapy for hospital-acquired pneumonia. She states that she was offered halfway facility as it was recommended by her physicians there but ultimately she preferred to go home given she was hospitalized for a month. She states that she went home yes terday, she has had difficulty ambulating with a walker and does not feel safe at home. She is scheduled to see home health tomorrow for PT and social work to discuss potential halfway care. She did not feel safe waiting at home and so she came to the emergency department today. The patient states she lives with her daughter and her 5-year-old grandson who has autism and therefore her d rodrigohter has been unable to care for her as her son requires a lot of attention. The patient reports since discharge she felt increasingly short of breath. She states she does have lower extremity edema which was present prior to discharge and she does not feel that this is worse. She does endorse orthopnea and a nonproductive cough. She reports no fevers or chills. She did receive her Covid vaccine yesterday and this was her first dose of Moderna. She has tried her home inhalers without much improvement. She states she does feel little bit short of breath at [facility] but this definitely felt worse yesterday after she went home. She also complains of chest pain which has been on and off. She does not feel it is sharp or pressure-like in nature. She states it is very difficult to describe her pain. It is not always present and is not necessarily worse with exertion. She feels that her chest is tender. Her chest pain resolves with morphine that she has been taking at home but she tries to limit the use of it as it makes her quite lethargic. She has been taking aspirin, Lipitor, atenolol as prescribed. Here in the emergency department, she is saturating well on her baseline 2 L of oxygen. Her labs revealed a hemoglobin of 8.6 with repeat a few hours later came back at 8.4. Her troponins are flat at 16. Her EKG reveals a sinus rhythm without evidence of ischemia. Her BNP is elevated in the 600s. Her chest x-ray reveals a moderate sized left pleural effusion and concern for pulmonary vascular congestion. Given the above findings, medicine was consulted for adm ission given the concern for potential heart failure. I did discuss goals of care with the patient and she would like to be a full code. 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 Her father in his 50s from diabetes. One of her bro thers in his 40s from heart disease. Her other siblings also have a past medical history significant for heart disease. Living arrangement: At home Living Situation: With family Social History Notes: She smoked a pack a day for over 40 years but quit about 10 years ago. She rarely drinks alcohol. She denies any illicit drug use. She lives with her daughter and grandson who has autism. - Substance History Use: Uses substance without health or social issues: NONE - POLST Patient has POLST: No Meds/Allgy - Home Medications Home Medications: Ambulatory Orders Medication Instructions Recorded Confirmed Albuterol Sulf [Ventolin Hfa 2 puffs INH Q4H PRN #1 inhaler 08/09/16 01/28/21 Inhaler] Aspirin [Adult Aspirin] 81 mg PO DAILY 01/21/18 01/28/21 Ipratropium/Albuterol [Duoneb] 3 ml INH Q6H PRN 01/21/18 01/28/21 Melatonin 5 mg PO QPM 01/21/18 01/28/21 Naproxen Sodium 220 mg PO DAILY PRN 01/21/18 01/28/21 Umeclidinium Wallace [Incruse 62.5 mcg INH DAILY 01/21/18 01/28/21 Ellipta] guaiFENesin [Guaifenesin] 400 mg PO Q4H 01/21/18 01/28/21 lisinopriL [Lisinopril] 20 mg PO DAILY 01/21/18 01/28/21 raNITIdine HCL [Ranitidine HCl] 150 mg PO BID 01/21/18 01/28/21 Citalopram [CeleXA] 10 mg PO DAILY 03/16/18 01/28/21 - Allergies Allergies/Adverse Reactions: Allergies Allergy/AdvReac Type Severity Reaction Status Date / Time hydromorphone [From Dilaudid] AdvReac Emesis Verified 03/06/21 13:39 Penicillins AdvReac Hives Verified 03/06/21 13:39 Review of Systems - Constitutional Constitutional: reports: Weakness. denies: Fever, Chills - Cardiovascular Cariovascular: reports: Chest pain, Edema, Exertional dyspnea, Decr. exercise tolerance - Respiratory Respiratory: reports: Cough, Orthopnea, SOB with exertion. denies: Sputum production, Wheezing, SOB at rest - Gastrointestinal Gastrointestinal: reports: Nausea. denies: Abdominal pain, Change in bowel habits, Black stools, Bloody stools, Vomiting - Genitourinary Genitourinary: denies: Dysuria, Frequency, Hematuria - Integumentary Integumentary: denies: Rash - Neurological Neurological: reports: General weakness. denies: Focal weakness - Hematologic/Lymphatic Hematologic/Lymphatic: reports: Anemia, Bruising - All Other Systems All Other Systems: reports: Reviewed and negative Prior Level of Functionality: She is normally independent with her ADLs but is now ambulating with a walker since discharge from [facility]. She now requires assistance with her ADLs. Exam - Vital Signs Reviewed Vital Signs: Yes Vital Signs: Vital Signs x48h Temp Pulse Resp BP Pulse Ox 03/06/21 15:36 72 18 03/06/21 14:19 74 20 110/62 98 03/06/21 13:32 36.0 C L 76 20 128/57 L 97 - Physical Exam General Appearance: positive: No acute distress, Alert Eyes Bilateral: positive: Normal inspection, Conjunctivae nml ENT: positive: ENT inspection nml, Other (Nasal cannula in place.) Neck: positive: Nml inspection Respiratory: positive: No respiratory distress, Other (Faint crackles bilaterally. Breath sounds diminished in left base.). negative: Wheezes, Rales Cardiovascular: positive: Regular rate & rhythm, No murmur, Other ([place] in place over sternum. No surrounding erythema. There is tenderness to palpation.). negative: Irregularly irregular, Tachycardia, Systolic murmur Abdomen: positive: Non-tender, Nml bowel sounds, No distention, Other (Multiple areas of ecchymosis over her abdomen.). negative: Tenderness, Guarding, Rebound Skin: positive: Warm, Dry Extremities: positive: Pedal edema (+1 to +2 pitting edema in bilateral lower extremities.), Other ([place] sites over her bilateral extremities over the medial aspect are withouth erythema.) Neurologic/Psychiatric: positive: Other (No focal deficits on exam.). negative: Disoriented to person, Disoriented to place, Facial droop, Slurred/abnml speech Conclusion/Plan - Problem List (1) Congestive heart failure Conclusion/Plan: There is concern for heart failure given her lower extremity edema, elevated BNP, chest x-ray consistent pulmonary vascular congestion and moderate sized left pleural effusion. Although she is not hypoxic, she does have dyspnea that is most prominent with exertion. We will place in observation for IV diuresis. We will give her Lasix 40 mg IV once now started on 40 mg IV daily. We will obtain an echocardiogram tomorrow morning. Daily weights. Strict I's and O's. Qualifiers: Heart failure type: unspecified Heart failure chronicity: acute Qualified Code(s): I50.9 - Heart failure, unspecified (2) Chest pain Conclusion/Plan: I suspect this is likely related to her incision site over the sternum at this time. Her troponins are flat and minimally elevated. Her EKG does not suggest ischemia. We will resume her home morphine dose once the dosing is confirmed. We will place her on Tylenol and oxycodone as needed for time being. We will obtain an echocardiogram tomorrow. Continue to trend troponin. Monitor on telemetry. (3) Physical deconditioning Conclusion/Plan: She is quite deconditioned after a month-long hospitalization. She initially declined halfway but she is now agreeable to this. We will consult PT and OT and ask our social work to see her in the morning to discuss disposition planning as she will most likely need SNF on discharge. (4) Coronary artery disease Conclusion/Plan: This is a recent diagnosis for her and underwent double bypass at [facility]. She is on aspirin, atenolol, Lipitor. She is also on amiodarone postoperatively. Low suspicion for ACS at this time. We will continue her home aspirin, atenolol, Lipitor, amiodarone. (5) Hypertension Conclusion/Plan: Her blood pressure is currently well controlled. We will continue her current regimen with atenolol. (6) Anemia Conclusion/Plan: Her hemoglobin appears to be stable at this time in the mid eights. She denies any obvious bleeding. She did have a recent GI bleed secondary to gastric ulcer due to NSAID use. We will resume her home PPI. She was most definitely iron deficient based off of her previous iron studies and so we will place her on iron supplementation. Will monitor for signs of bleeding. - Lab Results Lab results reviewed: Yes Fish Bones: 03/06/21 17:38 03/06/21 14:13 - Diagnostic Imaging Results Diagnostic Imaging Results: positive: Final report reviewed - EKG Results EKG Interpreted Independently: Yes EKG Comparison: Changed from prior EKG (Rate has decreased. ST depressions in the lateral leads no longer present for) EKG Findings: EKG shows a sinus rhythm without obvious evidence of ischemia. Low voltage noted. Core Measures - Anticipated LOS I expect patient to be DC'd or transferred within 96 hours.: Yes - Issues Hospital Issues and Management Plan: The 65-year-old female with a history of COPD on 2 L of oxygen presents after undergoing a CABG few weeks ago with chest pain and dyspnea as well as generalized weakness. Concern is for heart failure. We will place her in observation for diuresis and obtain echocardiogram. - DVT/VTE - Prophylaxis VTE/DVT Device ordered at admit?: No Not Ordered - Medical Reason: Contraindicated VTE/DVT Prophylaxis med ordered at admit?: Yes
[2021-03-06 22:03] LABS: B. PARAPERTUSSIS- RESP PCR PAN NOT DETECTED; B. PERTUSSIS- RESP PCR PANEL NOT DETECTED; C. PNEUMONIAE- RESP PCR PANEL NOT DETECTED; CORONAVIRUS 229E-RESP PCR NOT DETECTED; CORONAVIRUS HKU1-RESP PCR NOT DETECTED; CORONAVIRUS NL63-RESP PCR NOT DETECTED; CORONAVIRUS OC43-RESP PCR NOT DETECTED; HUMAN METAPNEUMOVIRUS NOT DETECTED; INFLUENZA A- RESP PCR PANEL NOT DETECTED; INFLUENZA B - RESP PCR PANEL NOT DETECTED; M. PNEUMONIAE- RESP PCR PANEL NOT DETECTED; PARAINFLUENZA VIRUS 1 NOT DETECTED; PARAINFLUENZA VIRUS 2 NOT DETECTED; PARAINFLUENZA VIRUS 3 NOT DETECTED; PARAINFLUENZA VIRUS 4 NOT DETECTED; RHINOVIRUS/ENTEROVIRUS NOT DETECTED; RSV- RESP PCR PANEL NOT DETECTED; SARS-CoV-2 -RESP PCR PANEL NOT DETECTED
[2021-03-06] MEDS: oxyCODONE 5 MG TABLET PO PRN (22:07)
[2021-03-06] MEDS: ACETAMINOPHEN 325 MG TABLET PO PRN (22:09)
[2021-03-06] MEDS: IPRATROPIUM/ALBUTEROL 3 ML NEB INH SCH (22:33)
[2021-03-06] MEDS: SODIUM CHLORIDE FLUSH 0.9% 10 ML SYRINGE IVP SCH (23:35)
[2021-03-07] MEDS: oxyCODONE 5 MG TABLET PO PRN ×3 (04:48→20:05)
[2021-03-07] MEDS: ACETAMINOPHEN 325 MG TABLET PO PRN ×4 (04:49→21:41)
[2021-03-07 05:37] LABS: CALCIUM 8.9 mg/dL (8.5-10.3); CREATININE 1.2 mg/dL (0.4-1.0); POTASSIUM 3.9 mmol/L (3.5-5.0)
[2021-03-07 05:47] LABS: BASOPHILS # (AUTO) 0.1 10^3/uL (0.0-0.1); BASOPHILS % (AUTO) 0.6 %; EOSINOPHILS # (AUTO) 0.5 10^3/uL (0.0-0.7); EOSINOPHILS % (AUTO) 6.6 %; HCT - HEMATOCRIT 30.1 % (37.0-47.0); HGB - HEMOGLOBIN 8.6 g/dL (12.0-16.0); LYMPHOCYTES # (AUTO) 1.3 10^3/uL (1.5-3.5); LYMPHOCYTES % (AUTO) 16.5 %; MEAN CORPUSCULAR HEMOGLOBIN 26.9 pg (27.0-31.0); MEAN CORPUSCULAR HGB CONC 28.6 g/dL (32.0-36.0); MEAN CORPUSCULAR VOLUME 94.1 fL (81.0-99.0); MONOCYTES # (AUTO) 0.7 10^3/uL (0.0-1.0); NEUTROPHILS # (AUTO) 5.3 10^3/uL (1.5-6.6); NEUTROPHILS % (AUTO) 66.5 %; NRBC ABSOLUTE COUNT (AUTO) 0.05 x10^3/uL; NUCLEATED RED BLOOD CELLS AUTO 0.6 /100WBC; RED CELL DISTRIBUTION WIDTH 19.9 % (12.0-15.0); WHITE BLOOD COUNT 7.9 x10^3/uL (4.8-10.8)
[2021-03-07 06:06] LABS: PLATELET ESTIMATE, MANUAL INCREASED (>450,000) (NORMAL); PLT - PLATELET COUNT 529 10^3/uL (130-450)
[2021-03-07] MEDS: PANTOPRAZOLE 40 MG TABLET PO SCH (06:09)
[2021-03-07] MEDS: IPRATROPIUM/ALBUTEROL 3 ML NEB INH SCH ×4 (07:23→20:33)
[2021-03-07] MEDS ORDERED: ALBUTEROL NEB 2.5 MG/3 ML INH PRN (08:14)
[2021-03-07] MEDS: FERROUS SULFATE 325 MG TABLET PO SCH ×2 (08:21→16:55)
[2021-03-07] MEDS: ASPIRIN CHEW 81 MG TABLET PO SCH (08:21)
[2021-03-07] MEDS: AMIODARONE 200 MG TABLET PO SCH (08:21)
[2021-03-07] MEDS: ENOXAPARIN 40 MG/0.4 ML SYRINGE SUBQ SCH (08:21)
[2021-03-07] MEDS: atenoloL 25 MG TABLET PO SCH (08:21)
[2021-03-07] MEDS: SODIUM CHLORIDE FLUSH 0.9% 10 ML SYRINGE IVP SCH ×4 (08:21→23:46)
[2021-03-07] MEDS: FUROSEMIDE 40 MG/4 ML VIAL IVP SCH ×2 (08:52→15:53)
[2021-03-07] MEDS ORDERED: FUROSEMIDE 40 MG/4 ML VIAL IVP SCH (09:00)
--- NOTE | 2021-03-07 11:09 | PHARMACY PROGRESS NOTE ---
- Best Possible Medication History Admit Date and Time: 03/06/212043 Processed by: Pharmacy Medication History completed: Yes Secondary Source(s): Physician records, Previous admit records As the person ultimately responsible for medication therapy, providers are able to order a medication from an existing home medication list in [facility] via the "Reconcile Routine" prior to Confirmation of that medication by passport support associate. Such practice is discouraged except when the physician, in their clinical judgment, deems that a medical need exists for a medication without regard to previous use.
[2021-03-07] MEDS: LIDOCAINE PATCH 5% TOP PRN (12:08)
--- NOTE | 2021-03-07 14:25 | PROVIDER PROGRESS NOTE ---
Assessment/Plan - Problem List (1) Congestive heart failure Qualifiers: Heart failure type: unspecified Heart failure chronicity: acute on chronic Qualified Code(s): I50.9 - Heart failure, unspecified Assessment/Plan: 03/07 After diuretics for patient, patient reported she did feel her breathing is better. Echo is pending. We will continue diuretics, Supplemental oxygen as needed. (2)moderate left pleural effusion After diuretics for patient, patient reported she did feel her breathing is better. pt has 95% sats on 2 L oxygen, patient take 2 L oxygen in the home. We will hold thoracentesis as patient show improved shortness breathing. Continue diuretics (3) Chest pain pt report her incision site over the sternum at this time show mild pain otherwise she has no other chest pain. Her troponins are flat and minimally elevated. Her EKG does not suggest ischemia. ECHO is pending, Monitor on telemetry. continue her home aspirin, atenolol, Lipitor, amiodarone. (4) Physical deconditioning Conclusion/Plan: She is quite deconditioned after a month-long hospitalization. consult PT and OT and social work, PT/OT recommend pt d/c to SNF (5) Coronary artery disease Conclusion/Plan: stable, denies chest pain. This is a recent diagnosis for her and underwent double bypass at [facility]. She is on aspirin, atenolol, Lipitor. She is also on amiodarone postoperatively. Low suspicion for ACS at this time. We will continue her home aspirin, atenolol, Lipitor, amiodarone. (6) Hypertension Conclusion/Plan: Her blood pressure is currently well controlled. We will continue her current regimen with atenolol. (7) Anemia Her hemoglobin is stable. we We will continue PPI, continue iron pill - Current Meds Current Meds: Current Medications Generic Name Dose Route Start Last Admin Trade Name Freq PRN Reason Stop Dose Admin Acetaminophen 650 mg 03/06/21 20:44 03/07/21 08:52 Acetaminophen 325 Mg Tablet PO 650 mg Q4HR PRN Administration Pain 1 to 4 Albuterol/Ipratropium 3 ml 03/06/21 21:00 03/07/21 11:28 Ipratropium/Albuterol 3 Ml Neb INH 3 ml RTQID ERNESTINA Administration Amiodarone HCl 200 mg 03/07/21 09:00 03/07/21 08:21 Amiodarone 200 Mg Tablet PO 200 mg DAILY ERNESTINA Administration Aspirin 162 mg 03/07/21 09:00 03/07/21 08:21 Aspirin Chew 81 Mg Tablet PO 162 mg DAILY ERNESTINA Administration Atenolol 25 mg 03/07/21 09:00 03/07/21 08:21 Atenolol 25 Mg Tablet PO 25 mg DAILY ERNESTINA Administration Enoxaparin Sodium 40 mg 03/07/21 09:00 03/07/21 08:21 Enoxaparin 40 Mg/0.4 Ml Syringe SUBQ 40 mg DAILY ERNESTINA Administration Ferrous Sulfate 325 mg 03/07/21 08:00 03/07/21 08:21 Ferrous Sulfate 325 Mg Tablet PO 325 mg BIDWM ERNESTINA Administration Furosemide 40 mg 03/07/21 09:00 03/07/21 08:52 Furosemide 40 Mg/4 Ml Vial IVP 40 mg BIDDIURETIC ERNESTINA Administration Lidocaine 1 patch 03/07/21 11:02 03/07/21 12:08 Lidocaine Patch 5% TOP 1 patch DAILY PRN Administration PAIN Oxycodone HCl 10 mg 03/06/21 20:44 03/07/21 08:52 Oxycodone 5 Mg Tablet PO 10 mg Q4HR PRN Administration Pain 8 to 10 Pantoprazole Sodium 40 mg 03/07/21 07:00 03/07/21 06:09 Pantoprazole 40 Mg Tablet PO 40 mg QDAC ERNESTINA Administration Sodium Chloride 10 ml 03/07/21 01:00 03/07/21 08:21 Sodium Chloride Flush 0.9% 10 Ml Syringe IVP 10 ml 0100,0900,1700 ERNESTINA Administration - Lab Result Fish Bone Diagrams: 03/07/21 05:19 03/07/21 05:19 - Additional Planning My Orders: My Active Orders 03/07/21 08:14 Nebulizer/MDI Tx. [RC] .qid Resp Teach Nebulizer/MDI [RC] .ONCE Albuterol 2.5 mg INH QID PRN 03/07/21 09:00 FUROSEMIDE INJ 40mg VIAL [LASIX INJ 40 mg VIAL] 40 mg IVP BIDDIURETIC 03/07/21 11:02 Lidocaine Patch 5% [Lidoderm Patch] 1 patch TOP DAILY PRN 03/07/21 14:20 Admit [Admit \ Transfer \ Status] [RC] .ONCE Subjective - Subjective Patient Reports: Feeling Better Objective Vital Signs: Vital Signs - 24 hr 03/06/21 03/06/21 03/06/21 15:36 20:55 21:00 Temperature 36.6 C Heart Rate 72 80 Heart Rate [ 80 Brachial] Heart Rate [ Sitting] Respiratory 18 19 18 Rate Blood Pressure 126/46 L Blood Pressure 110/48 L [Right Brachial artery] Blood Pressure [Sitting] O2 Saturation 98 95 03/06/21 03/06/21 03/06/21 22:30 23:11 23:35 Temperature 36.6 C 36.6 C Heart Rate 74 74 Heart Rate [ 86 Brachial] Heart Rate [ Sitting] Respiratory 20 20 18 Rate Blood Pressure Blood Pressure 111/49 L [Right Brachial artery] Blood Pressure [Sitting] O2 Saturation 97 95 03/07/21 03/07/21 03/07/21 04:48 07:24 08:13 Temperature 37.2 C 36.6 C Heart Rate 80 Heart Rate [ 85 83 Brachial] Heart Rate [ Sitting] Respiratory 20 18 14 Rate Blood Pressure Blood Pressure 123/57 L 116/47 L [Right Brachial artery] Blood Pressure [Sitting] O2 Saturation 91 L 93 03/07/21 03/07/21 03/07/21 11:25 11:30 11:50 Temperature Heart Rate 74 Heart Rate [ Brachial] Heart Rate [ 96 96 Sitting] Respiratory 18 Rate Blood Pressure Blood Pressure [Right Brachial artery] Blood Pressure 117/53 L 117/53 L [Sitting] O2 Saturation 03/07/21 12:18 Temperature 36.7 C Heart Rate Heart Rate [ 80 Brachial] Heart Rate [ Sitting] Respiratory 16 Rate Blood Pressure Blood Pressure 108/53 L [Right Brachial artery] Blood Pressure [Sitting] O2 Saturation 95 Oxygen O2 Source Nasal cannula I&O (Last 24 Hrs): Intake and Output Totals x24h 03/05/21 03/06/21 03/07/21 23:59 23:59 23:59 Intake Total 510 Output Total 1800 Balance -1290 General: Alert, Oriented x3, Cooperative, No acute distress HEENT: Atraumatic Neck: Supple Lymphatic: no adenopathy Neuro: Alert, Non Focal, Oriented Times 3 Cardiovascular: Regular rate, Normal S1, Normal S2 Respiratory: Chest non-tender, No respiratory distress Abdomen: Normal bowel sounds, Soft - Results Results: Laboratory Results WBC 7.9 x10^3/uL (4.8-10.8) 03/07/21 05:19 RBC 3.20 10^6/uL (4.20-5.40) L 03/07/21 05:19 Hgb 8.6 g/dL (12.0-16.0) L 03/07/21 05:19 Hct 30.1 % (37.0-47.0) L 03/07/21 05:19 MCV 94.1 fL (81.0-99.0) 03/07/21 05:19 MCH 26.9 pg (27.0-31.0) L 03/07/21 05:19 MCHC 28.6 g/dL (32.0-36.0) L 03/07/21 05:19 RDW 19.9 % (12.0-15.0) H 03/07/21 05:19 Plt Count 529 10^3/uL (130-450) H 03/07/21 05:19 MPV 11.0 fL (7.9-10.8) H 03/07/21 05:19 Neut # (Auto) 5.3 10^3/uL (1.5-6.6) 03/07/21 05:19 Lymph # (Auto) 1.3 10^3/uL (1.5-3.5) L 03/07/21 05:19 [place] # (Auto) 0.7 10^3/uL (0.0-1.0) 03/07/21 05:19 Eos # (Auto) 0.5 10^3/uL (0.0-0.7) 03/07/21 05:19 Baso # (Auto) 0.1 10^3/uL (0.0-0.1) 03/07/21 05:19 Absolute Nucleated RBC 0.05 x10^3/uL 03/07/21 05:19 Nucleated RBC % 0.6 /100WBC 03/07/21 05:19 Platelet Estimate INCREASED (>450,000) (NORMAL) 03/07/21 05:19 PT 15.3 secs (9.9-12.6) H 03/06/21 14:13 INR 1.4 (0.8-1.2) H 03/06/21 14:13 Sodium 137 mmol/L (135-145) 03/07/21 05:19 Potassium 3.9 mmol/L (3.5-5.0) 03/07/21 05:19 Chloride 96 mmol/L (101-111) L 03/07/21 05:19 Carbon Dioxide 28 mmol/L (21-32) 03/07/21 05:19 Anion Gap 13.0 (6-13) 03/07/21 05:19 BUN 30 mg/dL (6-20) H 03/07/21 05:19 Creatinine 1.2 mg/dL (0.4-1.0) H 03/07/21 05:19 Estimated GFR (MDRD) 45 (>89) L 03/07/21 05:19 Glucose 102 mg/dL (70-100) H 03/07/21 05:19 Calcium 8.9 mg/dL (8.5-10.3) 03/07/21 05:19 Magnesium 2.0 mg/dL (1.7-2.8) 03/07/21 05:19 Total Bilirubin 0.8 mg/dL (0.2-1.0) 03/06/21 14:13 AST 24 IU/L (10-42) 03/06/21 14:13 ALT 49 IU/L (10-60) 03/06/21 14:13 Alkaline Phosphatase 114 IU/L (42-121) 03/06/21 14:13 Troponin I High Sens 16.4 ng/L (2.3-14.8) H* 03/07/21 05:19 B-Natriuretic Peptide 656 pg/mL (5-100) H 03/07/21 05:19 Total Protein 6.8 g/dL (6.7-8.2) 03/06/21 14:13 Albumin 3.3 g/dL (3.2-5.5) 03/06/21 14:13 Globulin 3.5 g/dL (2.1-4.2) 03/06/21 14:13 Albumin/Globulin Ratio 0.9 (1.0-2.2) L 03/06/21 14:13 Lipase 23 U/L (22-51) 03/06/21 14:13 Nasal Adenovirus (PCR) NOT DETECTED 03/06/21 21:00 Nasal B. parapertussis DNA (PCR) NOT DETECTED 03/06/21 21:00 Nasal Coronavir 229E PCR NOT DETECTED 03/06/21 21:00 Nasal Coronavir HKU1 PCR NOT DETECTED 03/06/21 21:00 Nasal Coronavir NL63 PCR NOT DETECTED 03/06/21 21:00 Nasal Coronavir OC43 PCR NOT DETECTED 03/06/21 21:00 Nasal Enterovir/Rhinovir PCR NOT DETECTED 03/06/21 21:00 Nasal Influenza B PCR NOT DETECTED 03/06/21 21:00 Nasal Influenza A PCR NOT DETECTED 03/06/21 21:00 Nasal Parainfluen 1 PCR NOT DETECTED 03/06/21 21:00 Nasal Parainfluen 2 PCR NOT DETECTED 03/06/21 21:00 Nasal Parainfluen 3 PCR NOT DETECTED 03/06/21 21:00 Nasal Parainfluen 4 PCR NOT DETECTED 03/06/21 21:00 Nasal RSV (PCR) NOT DETECTED 03/06/21 21:00 Nasal B.pertussis DNA PCR NOT DETECTED 03/06/21 21:00 Nasal C.pneumoniae (PCR) NOT DETECTED 03/06/21 21:00 [place] Human Metapneumo PCR NOT DETECTED 03/06/21 21:00 Nasal M.pneumoniae (PCR) NOT DETECTED 03/06/21 21:00 Nasal SARS-CoV-2 (PCR) NOT DETECTED 03/06/21 21:00 - Procedures Procedures: Procedures INSERTION OF INFUSION DEVICE INTO UPPER VEIN, PERC APPROACH (01/28/21) INSPECTION OF LOWER INTESTINAL TRACT, ENDO (03/16/18) TRANSFUSE NONAUT RED BLOOD CELLS IN PERIPH VEIN, PERC (01/28/21) ABX Reporting Has patient been on IV antibiotics over the past 48 hours?: No Current Medications - Current Medications Current Medications: Active Medications Acetaminophen (Acetaminophen 325 Mg Tablet) 650 mg PO Q4HR PRN PRN Reason: Pain 1 to 4 Last Admin: 03/07/21 08:52 Dose: 650 mg Documented by: Albuterol (Albuterol Neb 2.5 Mg/3 Ml) 2.5 mg INH QID PRN PRN Reason: Wheezing Albuterol/Ipratropium (Ipratropium/Albuterol 3 Ml Neb) 3 ml INH RTQID ERNESTINA Last Admin: 03/07/21 11:28 Dose: 3 ml Documented by: Amiodarone HCl (Amiodarone 200 Mg Tablet) 200 mg PO DAILY ERNESTINA Last Admin: 03/07/21 08:21 Dose: 200 mg Documented by: Aspirin (Aspirin Chew 81 Mg Tablet) 162 mg PO DAILY [facility] Last Admin: 03/07/21 08:21 Dose: 162 mg Documented by: Atenolol (Atenolol 25 Mg Tablet) 25 mg PO DAILY [facility] Last Admin: 03/07/21 08:21 Dose: 25 mg Documented by: Atorvastatin Calcium (Atorvastatin 40 Mg Tablet) 40 mg PO QPM [facility] Enoxaparin Sodium (Enoxaparin 40 Mg/0.4 Ml Syringe) 40 mg SUBQ DAILY [facility] Last Admin: 03/07/21 08:21 Dose: 40 mg Documented by: Ferrous Sulfate (Ferrous Sulfate 325 Mg Tablet) 325 mg PO BIDWM [facility] Last Admin: 03/07/21 08:21 Dose: 325 mg Documented by: Furosemide (Furosemide 40 Mg/4 Ml Vial) 40 mg IVP BIDDIURETIC [facility] Last Admin: 03/07/21 08:52 Dose: 40 mg Documented by: Lidocaine (Lidocaine Patch 5%) 1 patch TOP DAILY PRN PRN Reason: PAIN Last Admin: 03/07/21 12:08 Dose: 1 patch Documented by: Ondansetron HCl (Ondansetron 4 Mg/2 Ml Vial) 4 mg IVP Q6HR PRN PRN Reason: Nausea / Vomiting Ondansetron HCl (Ondansetron Odt 4 Mg Tablet) 4 mg TL Q6HR PRN PRN Reason: Nausea / Vomiting Oxycodone HCl (Oxycodone 5 Mg Tablet) 5 mg PO Q4HR PRN PRN Reason: Pain 5 to 7 Oxycodone HCl (Oxycodone 5 Mg Tablet) 10 mg PO Q4HR PRN PRN Reason: Pain 8 to 10 Last Admin: 03/07/21 08:52 Dose: 10 mg Documented by: Pantoprazole Sodium (Pantoprazole 40 Mg Tablet) 40 mg PO QDAC [facility] Last Admin: 03/07/21 06:09 Dose: 40 mg Documented by: Sodium Chloride (Sodium Chloride Flush 0.9% 10 Ml Syringe) 10 ml IVP PRN PRN PRN Reason: NEEDED PER PROVIDER ORDERS Sodium Chloride (Sodium Chloride Flush 0.9% 10 Ml Syringe) 10 ml IVP 0100,0900,1700 [facility] Last Admin: 03/07/21 08:21 Dose: 10 ml Documented by: Citalopram [CeleXA] 10 mg PO DAILY 03/16/18 Acetaminophen [Acetaminophen Extra Strength] 1,000 mg PO TID 03/07/21 Amiodarone [Pacerone] 200 mg PO DAILY 03/07/21 Aspirin Chewable [[place] Aspirin] 162 mg PO DAILY 03/07/21 Atorvastatin Calcium 40 mg PO QPM 03/07/21 Budesonide/Formoterol Fumarate [Symbicort 160-4.5 Mcg Inhaler] 2 puffs INH BID 03/07/21 Guaifenesin/Dextromethorphan [Guaifenesin-Dm ER 1,200-60 mg] 1 tab PO BID 03/07/21 Morphine Sulfate [Ms Contin] 15 mg PO TID 03/07/21 Multivitamin [Theragran] 1 tab PO DAILY 03/07/21 Nortriptyline [Pamelor] 10 mg PO QPM 03/07/21 Pantoprazole [Protonix] 40 mg PO BIDAC 03/07/21 Tiotropium [place] [Spiriva] 1 puffs INH DAILY 03/07/21 atenoloL [Tenormin] 25 mg PO DAILY 03/07/21 levoFLOXacin [Levofloxacin] 500 mg PO DAILY 03/07/21 oxyCODONE [Roxicodone] 2.5 - 10 mg PO Q4H PRN 03/07/21
[2021-03-07] MEDS: ATORVASTATIN 40 MG TABLET PO SCH (20:05)
[2021-03-07] MEDS: polyethylene glycoL 3350 17 GM PACKET PO SCH (20:05)
[2021-03-07] MEDS ORDERED: guaiFENesin 100 MG/5 ML UDC PO PRN (21:53)
[2021-03-07] MEDS: MORPHINE ER 15 MG TABLET PO SCH (22:07)
[2021-03-08] MEDS: ACETAMINOPHEN 325 MG TABLET PO PRN ×3 (04:30→17:33)
[2021-03-08 05:00] LABS: BASOPHILS % (AUTO) 0.3 %; EOSINOPHILS # (AUTO) 0.5 10^3/uL (0.0-0.7); EOSINOPHILS % (AUTO) 7.7 %; HCT - HEMATOCRIT 28.1 % (37.0-47.0); HGB - HEMOGLOBIN 8.3 g/dL (12.0-16.0); LYMPHOCYTES # (AUTO) 1.3 10^3/uL (1.5-3.5); LYMPHOCYTES % (AUTO) 18.8 %; MEAN CORPUSCULAR HEMOGLOBIN 27.5 pg (27.0-31.0); MEAN CORPUSCULAR HGB CONC 29.5 g/dL (32.0-36.0); MEAN PLATELET VOLUME 9.4 fL (7.9-10.8); MONOCYTES # (AUTO) 0.7 10^3/uL (0.0-1.0); MONOCYTES % (AUTO) 10.5 %; NEUTROPHILS # (AUTO) 4.3 10^3/uL (1.5-6.6); NRBC ABSOLUTE COUNT (AUTO) 0.03 x10^3/uL; NUCLEATED RED BLOOD CELLS AUTO 0.4 /100WBC; PLT - PLATELET COUNT 594 10^3/uL (130-450); RED BLOOD COUNT 3.02 10^6/uL (4.20-5.40); RED CELL DISTRIBUTION WIDTH 19.5 % (12.0-15.0); WHITE BLOOD COUNT 6.9 x10^3/uL (4.8-10.8)
[2021-03-08 05:08] LABS: CALCIUM 8.5 mg/dL (8.5-10.3); CREATININE 1.1 mg/dL (0.4-1.0); POTASSIUM 3.6 mmol/L (3.5-5.0)
[2021-03-08] MEDS: MORPHINE ER 15 MG TABLET PO SCH ×3 (05:33→21:09)
[2021-03-08] MEDS: PANTOPRAZOLE 40 MG TABLET PO SCH (05:33)
[2021-03-08] MEDS: IPRATROPIUM/ALBUTEROL 3 ML NEB INH SCH ×4 (06:28→22:44)
[2021-03-08] MEDS ORDERED: FUROSEMIDE 40 MG/4 ML VIAL IVP SCH (09:00)
--- NOTE | 2021-03-08 09:18 | XRAY Report ---
PROCEDURE: Chest 1 View X-Ray INDICATIONS: SOB, right chest and back pain TECHNIQUE: One view of the chest was acquired. COMPARISON: 03/06/2021 FINDINGS: Surgical changes and devices: Median sternotomy wires are again seen with surgical clips.. Lungs and pleura: Persistent small to moderate left-sided pleural effusion with interval slight worse jessie of pulmonary edema. No gross pneumothorax. Mediastinum: Mediastinal contours appear normal. Heart size is enlarged. Bones and chest wall: No suspicious bony lesions. Overlying soft tissues appear unremarkable. IMPRESSION: Interval worsening of pulmonary edema. Persistent small to moderate left pleural effusion with left b asilar atelectasis. No gross pneumothorax. Reviewed by: Epifanio Jenkins MD on 03/08/2021 9:17 AM PDT Approved by: Epifanio Jenkins MD on 03/08/2021 9:17 AM PDT Station ID: [id number]
[2021-03-08] MEDS: ASPIRIN CHEW 81 MG TABLET PO SCH (11:22)
[2021-03-08] MEDS: polyethylene glycoL 3350 17 GM PACKET PO SCH (11:22)
[2021-03-08] MEDS: FUROSEMIDE 40 MG/4 ML VIAL IVP SCH ×2 (11:23→16:44)
[2021-03-08] MEDS: levoFLOXacin 250 MG TABLET PO SCH (11:23)
[2021-03-08] MEDS: guaiFENesin 600 MG TABLET PO SCH ×2 (11:23→21:09)
[2021-03-08] MEDS: FERROUS SULFATE 325 MG TABLET PO SCH ×2 (11:24→16:43)
[2021-03-08] MEDS: atenoloL 25 MG TABLET PO SCH (11:24)
[2021-03-08] MEDS: AMIODARONE 200 MG TABLET PO SCH (11:25)
[2021-03-08] MEDS: SODIUM CHLORIDE FLUSH 0.9% 10 ML SYRINGE IVP PRN (11:25)
[2021-03-08] MEDS: ENOXAPARIN 40 MG/0.4 ML SYRINGE SUBQ SCH (11:25)
[2021-03-08] MEDS: oxyCODONE 5 MG TABLET PO PRN ×2 (14:54→22:31)
--- NOTE | 2021-03-08 14:57 | PROVIDER PROGRESS NOTE ---
Subjective - Prog Note Date Prog Note Date: 03/08/21 - Subjective Pt reports feeling: No change Subjective: Patient feel her pain at the surgery incision site is increased. she also complain of shortness of breath. Also pt's disposition is not confirmed yet. CXR reveals worsening of pulmonary edema, Persistent small to moderate left pleural effusion with left basilar atelectasis. Current Medications - Current Medications Current Medications: Active Medications Acetaminophen (Acetaminophen 325 Mg Tablet) 650 mg PO Q4HR PRN PRN Reason: Pain 1 to 4 Last Admin: 03/08/21 11:36 Dose: 650 mg Documented by: Albuterol (Albuterol Neb 2.5 Mg/3 Ml) 2.5 mg INH QID PRN PRN Reason: Wheezing Albuterol/Ipratropium (Ipratropium/Albuterol 3 Ml Neb) 3 ml INH RTQID [facility] Last Admin: 03/08/21 11:13 Dose: 3 ml Documented by: Amiodarone HCl (Amiodarone 200 Mg Tablet) 200 mg PO DAILY [facility] Last Admin: 03/08/21 11:25 Dose: 200 mg Documented by: Aspirin (Aspirin Chew 81 Mg Tablet) 162 mg PO DAILY [facility] Last Admin: 03/08/21 11:22 Dose: 162 mg Documented by: Atenolol (Atenolol 25 Mg Tablet) 25 mg PO DAILY [facility] Last Admin: 03/08/21 11:24 Dose: 25 mg Documented by: Atorvastatin Calcium (Atorvastatin 40 Mg Tablet) 40 mg PO QPM [facility] Last Admin: 03/07/21 20:05 Dose: 40 mg Documented by: Enoxaparin Sodium (Enoxaparin 40 Mg/0.4 Ml Syringe) 40 mg SUBQ DAILY [facility] Last Admin: 03/08/21 11:25 Dose: 40 mg Documented by: Ferrous Sulfate (Ferrous Sulfate 325 Mg Tablet) 325 mg PO BIDWM [facility] Last Admin: 03/08/21 11:24 Dose: 325 mg Documented by: Furosemide (Furosemide 40 Mg/4 Ml Vial) 40 mg IVP BIDDIURETIC [facility] Last Admin: 03/08/21 11:23 Dose: 40 mg Documented by: Guaifenesin (Guaifenesin 600 Mg Tablet) 600 mg PO BID [facility] Last Admin: 03/08/21 11:23 Dose: 600 mg Documented by: Levofloxacin (Levofloxacin 250 Mg Tablet) 500 mg PO DAILY [facility] Stop: 03/10/21 09:01 Last Admin: 03/08/21 11:23 Dose: 500 mg Documented by: Lidocaine (Lidocaine Patch 5%) 1 patch TOP DAILY PRN PRN Reason: PAIN Last Admin: 03/07/21 12:08 Dose: 1 patch Documented by: Morphine Sulfate (Morphine Er 15 Mg Tablet) 15 mg PO TID [facility] Last Admin: 03/08/21 13:53 Dose: 15 mg Documented by: Ondansetron HCl (Ondansetron 4 Mg/2 Ml Vial) 4 mg IVP Q6HR PRN PRN Reason: Nausea / Vomiting Ondansetron HCl (Ondansetron Odt 4 Mg Tablet) 4 mg TL Q6HR PRN PRN Reason: Nausea / Vomiting Oxycodone HCl (Oxycodone 5 Mg Tablet) 10 mg PO Q6HR PRN PRN Reason: PAIN Last Admin: 03/08/21 14:54 Dose: 10 mg Documented by: Pantoprazole Sodium (Pantoprazole 40 Mg Tablet) 40 mg PO QDAC [facility] Last Admin: 03/08/21 05:33 Dose: 40 mg Documented by: Polyethylene Glycol (Polyethylene Glycol 3350 17 Gm Packet) 17 gm PO DAILY [facility] Last Admin: 03/08/21 11:22 Dose: 17 gm Documented by: Sodium Chloride (Sodium Chloride Flush 0.9% 10 Ml Syringe) 10 ml IVP PRN PRN PRN Reason: NEEDED PER PROVIDER ORDERS Last Admin: 03/08/21 11:25 Dose: 10 ml Documented by: Sodium Chloride (Sodium Chloride Flush 0.9% 10 Ml Syringe) 10 ml IVP 0100,0900,1700 [facility] Last Admin: 03/07/21 23:46 Dose: 10 ml Documented by: Citalopram [CeleXA] 10 mg PO DAILY 03/16/18 Acetaminophen [Acetaminophen Extra Strength] 1,000 mg PO TID 03/07/21 Amiodarone [Pacerone] 200 mg PO DAILY 03/07/21 Aspirin Chewable [St Efren Aspirin] 162 mg PO DAILY 03/07/21 Atorvastatin Calcium 40 mg PO QPM 03/07/21 Budesonide/Formoterol Fumarate [Symbicort 160-4.5 Mcg Inhaler] 2 puffs INH BID 03/07/21 Guaifenesin/Dextromethorphan [Guaifenesin-Dm ER 1,200-60 mg] 1 tab PO BID 03/07/21 Morphine Sulfate [Ms Contin] 15 mg PO TID 03/07/21 Multivitamin [Theragran] 1 tab PO DAILY 03/07/21 Nortriptyline [Pamelor] 10 mg PO QPM 03/07/21 Pantoprazole [Protonix] 40 mg PO BIDAC 03/07/21 Tiotropium [place] [Spiriva] 1 puffs INH DAILY 03/07/21 atenoloL [Tenormin] 25 mg PO DAILY 03/07/21 levoFLOXacin [Levofloxacin] 500 mg PO DAILY 03/07/21 oxyCODONE [Roxicodone] 2.5 - 10 mg PO Q4H PRN 03/07/21 Objective - Vital Signs/Intake & Output Vital Signs: Vital Signs x48h Temp Pulse Pulse Resp BP Pulse Ox 03/08/21 13:05 36.7 C 93 18 108/74 92 03/08/21 11:00 87 18 03/08/21 07:41 36.7 C 82 18 109/57 L 95 Intake & Output: Intake & Output 03/05/21 03/06/21 03/07/21 03/08/21 23:59 23:59 23:59 23:59 Intake Total 790 600 Output Total 2450 1025 Balance -1660 -425 - Objective General Appearance: positive: Alert, Mild distress. negative: Lethargic Eyes Bilateral: positive: Normal inspection, PERRL, No lid inflammation ENT: positive: ENT inspection nml, No signs of dehydration. negative: Purulent nasal drainage Neck: positive: Nml inspection, Trachea midline. negative: Thyromegaly, Tracheal deviation Respiratory: positive: Chest non-tender, No respiratory distress, Rales Cardiovascular: positive: Regular rate & rhythm, No murmur, Other (most area of surgery site is covery by the dress, no drainage, no erythema or swelling is around surgery site. but the distal of surgery site has small yellow drainage. sample is order for culture). negative: Tachycardia, Bradycardia, Systolic murmur, Diastolic murmur Peripheral Pulses: 2+ Radial (R), 2+ Radial (L) Abdomen: positive: Non-tender, Nml bowel sounds, No distention. negative: Tenderness Back: positive: Nml inspection Skin: positive: Color nml, Warm, Dry. negative: Cyanosis Extremities: positive: Non-tender, Full ROM, Nml appearance. negative: Calf tenderness Neurologic/Psychiatric: positive: Oriented x3, Motor nml, Sensation nml. negative: Weakness, Sensory loss, Facial droop, Slurred/abnml speech, Depressed mood/affect - Lab Results Fish Bones: 03/08/21 04:25 03/08/21 04:25 Other Labs: Lab Results x24hrs 03/08/21 03/08/21 Range/Units 04:25 04:25 WBC 6.9 (4.8-10.8) x10^3/uL RBC 3.02 L (4.20-5.40) 10^6/uL Hgb 8.3 L (12.0-16.0) g/dL Hct 28.1 L (37.0-47.0) % MCV 93.0 (81.0-99.0) fL MCH 27.5 (27.0-31.0) pg MCHC 29.5 L (32.0-36.0) g/dL RDW 19.5 H (12.0-15.0) % Plt Count 594 H (130-450) 10^3/uL MPV 9.4 (7.9-10.8) fL Neut # (Auto) 4.3 (1.5-6.6) 10^3/uL Lymph # (Auto) 1.3 L (1.5-3.5) 10^3/uL [place] # (Auto) 0.7 (0.0-1.0) 10^3/uL Eos # (Auto) 0.5 (0.0-0.7) 10^3/uL Baso # (Auto) 0.0 (0.0-0.1) 10^3/uL Absolute Nucleated RBC 0.03 x10^3/uL Nucleated RBC % 0.4 /100WBC Sodium 136 (135-145) mmol/L Potassium 3.6 (3.5-5.0) mmol/L Chloride 95 L (101-111) mmol/L Carbon Dioxide 32 (21-32) mmol/L Anion Gap 9.0 (6-13) BUN 28 H (6-20) mg/dL Creatinine 1.1 H (0.4-1.0) mg/dL Estimated GFR (MDRD) 50 L (>89) Glucose 91 (70-100) mg/dL Calcium 8.5 (8.5-10.3) mg/dL Magnesium 2.0 (1.7-2.8) mg/dL ABX Reporting Has patient been on IV antibiotics over the past 48 hours?: Yes Assessment/Plan - Problem List (1) Congestive heart failure Impression: 03/08 ECHO reveal preserved EF, suspect pt has diastolic heart issue. Chest x-ray show worsening pulmonary edema. Patient still had a 92% sats on 2 L oxygen although which is decreases from 95% to 96% on 2 Lpm of O2. she report she still has SOB. increased to BID of IV of Lasix, fluid restriction, check BNP, supplement of O2, vital and lab monitor continue her home aspirin, atenolol, Lipitor, amiodarone. drug worker was consult for disposition planning 03/07 After diuretics for patient, patient reported she did feel her breathing is better. Echo is pending. We will continue diuretics, Supplemental oxygen as needed. (3) surgery incision pain 03/08 pt report incision site pain. There is small yellow drainage at the distal of surgery site. send sample for culture, nurse for cleaning, skin care and dress coverage. pt has Levaquin now. (4) Physical deconditioning Conclusion/Plan: She is quite deconditioned after a month-long hospitalization. consult PT and OT and social work, PT/OT recommend pt d/c to SNF (5) Coronary artery disease Conclusion/Plan: stable, denies chest pain. This is a recent diagnosis for her and underwent double bypass at [facility]. She is on aspirin, atenolol, Lipitor. She is also on amiodarone postoperatively. Low suspicion for ACS at this time. We will continue her home aspirin, atenolol, Lipitor, amiodarone. (6) Hypertension Conclusion/Plan: Her blood pressure is currently well controlled. We will continue her current regimen with atenolol. (7) Anemia Her hemoglobin is stable. we We will continue PPI, continue iron pill Qualifiers: Heart failure type: unspecified Heart failure chronicity: acute on chronic Qualified Code(s): I50.9 - Heart failure, unspecified
[2021-03-08] MEDS: SODIUM CHLORIDE FLUSH 0.9% 10 ML SYRINGE IVP SCH ×2 (16:44→23:44)
[2021-03-08] MEDS: ATORVASTATIN 40 MG TABLET PO SCH (21:09)
[2021-03-09] MEDS: ACETAMINOPHEN 325 MG TABLET PO PRN ×4 (04:49→17:22)
[2021-03-09] MEDS: oxyCODONE 5 MG TABLET PO PRN ×4 (04:55→23:31)
[2021-03-09 05:14] LABS: BASOPHILS % (AUTO) 0.4 %; EOSINOPHILS # (AUTO) 0.5 10^3/uL (0.0-0.7); EOSINOPHILS % (AUTO) 7.2 %; HGB - HEMOGLOBIN 8.7 g/dL (12.0-16.0); LYMPHOCYTES # (AUTO) 1.3 10^3/uL (1.5-3.5); LYMPHOCYTES % (AUTO) 17.6 %; MEAN CORPUSCULAR HEMOGLOBIN 27.6 pg (27.0-31.0); MEAN CORPUSCULAR VOLUME 95.2 fL (81.0-99.0); MEAN PLATELET VOLUME 9.5 fL (7.9-10.8); MONOCYTES # (AUTO) 0.9 10^3/uL (0.0-1.0); MONOCYTES % (AUTO) 12.8 %; NEUTROPHILS # (AUTO) 4.5 10^3/uL (1.5-6.6); NEUTROPHILS % (AUTO) 61.3 %; NRBC ABSOLUTE COUNT (AUTO) 0.02 x10^3/uL; NUCLEATED RED BLOOD CELLS AUTO 0.3 /100WBC; PLT - PLATELET COUNT 656 10^3/uL (130-450); RED BLOOD COUNT 3.15 10^6/uL (4.20-5.40); RED CELL DISTRIBUTION WIDTH 19.6 % (12.0-15.0); WHITE BLOOD COUNT 7.3 x10^3/uL (4.8-10.8)
[2021-03-09 05:18] LABS: CALCIUM 8.9 mg/dL (8.5-10.3); MAGNESIUM 2.2 mg/dL (1.7-2.8); POTASSIUM 3.9 mmol/L (3.5-5.0)
[2021-03-09] MEDS: PANTOPRAZOLE 40 MG TABLET PO SCH (05:31)
[2021-03-09] MEDS: FUROSEMIDE 40 MG/4 ML VIAL IVP SCH (05:31)
[2021-03-09] MEDS: MORPHINE ER 15 MG TABLET PO SCH ×3 (05:31→21:00)
[2021-03-09] MEDS: IPRATROPIUM/ALBUTEROL 3 ML NEB INH SCH ×3 (07:23→15:26)
[2021-03-09] MEDS: LIDOCAINE PATCH 5% TOP PRN (08:10)
[2021-03-09] MEDS: AMIODARONE 200 MG TABLET PO SCH (08:10)
[2021-03-09] MEDS: ENOXAPARIN 40 MG/0.4 ML SYRINGE SUBQ SCH (08:11)
[2021-03-09] MEDS: levoFLOXacin 250 MG TABLET PO SCH (08:11)
[2021-03-09] MEDS: guaiFENesin 600 MG TABLET PO SCH ×2 (08:11→21:00)
[2021-03-09] MEDS: atenoloL 25 MG TABLET PO SCH (08:11)
[2021-03-09] MEDS: FERROUS SULFATE 325 MG TABLET PO SCH ×2 (08:11→17:22)
[2021-03-09] MEDS: ASPIRIN CHEW 81 MG TABLET PO SCH (08:11)
[2021-03-09] MEDS: polyethylene glycoL 3350 17 GM PACKET PO SCH (08:13)
[2021-03-09] MEDS: SODIUM CHLORIDE FLUSH 0.9% 10 ML SYRINGE IVP SCH ×3 (08:14→23:32)
[2021-03-09] MEDS ORDERED: DOCUSATE SODIUM 250 MG CAPSULE PO SCH (09:00)
[2021-03-09] MEDS ORDERED: SENNA 8.6 MG TABLET PO SCH (09:00)
[2021-03-09] MEDS ORDERED: GI COCKTAIL 120 ML BOTTLE PO PRN (10:37)
[2021-03-09] MEDS ORDERED: ASPIRIN CHEW 81 MG TABLET PO ONE (11:00)
[2021-03-09] MEDS ORDERED: NITROGLYCERIN SL 0.4 MG TABLET SL PRN (11:54)
--- NOTE | 2021-03-09 12:52 | PROVIDER PROGRESS NOTE ---
Subjective - Prog Note Date Prog Note Date: 03/09/21 Prog Note Time: 12:49 - Subjective Pt reports feeling: Worse Subjective: Patient today had a relatively abrupt onset of chest pain to the right parasternal region that radiated to the back. It was described as sharp. She does not feel like it is coming from her heart but rather her lungs. She has concerns and anxiety about what this may mean. This does not respond to a trial of GI cocktail but does seem to improve with nitroglycerin. Current Medications - Current Medications Current Medications: Current Medications Generic Name Dose Route Start Last Admin Trade Name Freq PRN Reason Stop Dose Admin Acetaminophen 650 mg 03/06/21 20:44 03/09/21 11:40 Acetaminophen 325 Mg Tablet PO 650 mg Q4HR PRN Administration Pain 1 to 4 Albuterol/Ipratropium 3 ml 03/06/21 21:00 03/09/21 10:53 Ipratropium/Albuterol 3 Ml Neb INH 3 ml RTQID ERNESTINA Administration Amiodarone HCl 200 mg 03/07/21 09:00 03/09/21 08:10 Amiodarone 200 Mg Tablet PO 200 mg DAILY ERNESTINA Administration Aspirin 162 mg 03/07/21 09:00 03/09/21 08:11 Aspirin Chew 81 Mg Tablet PO 162 mg DAILY ERNESTINA Administration Atenolol 25 mg 03/07/21 09:00 03/09/21 08:11 Atenolol 25 Mg Tablet PO 25 mg DAILY ERNESTINA Administration Atorvastatin Calcium 40 mg 03/07/21 21:00 03/08/21 21:09 Atorvastatin 40 Mg Tablet PO 40 mg QPM ERNESTINA Administration Docusate Sodium 250 - 500 mg 03/09/21 09:00 03/09/21 08:10 Docusate Sodium 250 Mg Capsule PO 250 mg DAILY ERNESTINA Administration Enoxaparin Sodium 40 mg 03/07/21 09:00 03/09/21 08:11 Enoxaparin 40 Mg/0.4 Ml Syringe SUBQ 40 mg DAILY ERNESTINA Administration Ferrous Sulfate 325 mg 03/07/21 08:00 03/09/21 08:11 Ferrous Sulfate 325 Mg Tablet PO 325 mg BIDWM ERNESTINA Administration Furosemide 40 mg 03/08/21 09:00 03/09/21 05:31 Furosemide 40 Mg/4 Ml Vial IVP 40 mg BIDDIURETIC ERNESTINA Administration Guaifenesin 600 mg 03/08/21 09:00 03/09/21 08:11 Guaifenesin 600 Mg Tablet PO 600 mg BID ERNESTINA Administration Levofloxacin 500 mg 03/08/21 09:00 03/09/21 08:11 Levofloxacin 250 Mg Tablet PO 03/10/21 09:01 500 mg DAILY ERNESTINA Administration Lidocaine 1 patch 03/07/21 11:02 03/09/21 08:10 Lidocaine Patch 5% TOP 1 patch DAILY PRN Administration PAIN Morphine Sulfate 15 mg 03/07/21 22:00 03/09/21 05:31 Morphine Er 15 Mg Tablet PO 15 mg TID ERNESTINA Administration Multi-Ingredient Mouthwash/Gargle 30 ml 03/09/21 10:37 03/09/21 11:40 Gi Cocktail 120 Ml Bottle PO 30 ml Q4H PRN Administration Abdominal Pain Nitroglycerin 0.4 mg 03/09/21 11:54 03/09/21 12:04 Nitroglycerin Sl 0.4 Mg Tablet SL 0.4 mg Q5MIN PRN Administration Chest Pain Ondansetron HCl 4 mg 03/06/21 20:44 03/09/21 09:20 Ondansetron Odt 4 Mg Tablet TL 4 mg Q6HR PRN Administration Nausea / Vomiting Oxycodone HCl 10 mg 03/08/21 14:18 03/09/21 10:38 Oxycodone 5 Mg Tablet PO 10 mg Q6HR PRN Administration PAIN Pantoprazole Sodium 40 mg 03/07/21 07:00 03/09/21 05:31 Pantoprazole 40 Mg Tablet PO 40 mg QDAC ERNESTINA Administration Polyethylene Glycol 17 gm 03/07/21 21:00 03/09/21 08:13 Polyethylene Glycol 3350 17 Gm Packet PO Not Given DAILY ERNESTINA Senna 8.6 - 17.2 mg 03/09/21 09:00 03/09/21 08:11 Senna 8.6 Mg Tablet PO 8.6 mg DAILY ERNESTINA Administration Sodium Chloride 10 ml 03/06/21 20:44 03/08/21 11:25 Sodium Chloride Flush 0.9% 10 Ml Syringe IVP 10 ml PRN PRN Administration NEEDED PER PROVIDER ORDERS Sodium Chloride 10 ml 03/07/21 01:00 03/09/21 08:14 Sodium Chloride Flush 0.9% 10 Ml Syringe IVP 10 ml 0100,0900,1700 ERNESTINA Administration Objective - Vital Signs/Intake & Output Reviewed Vital Signs: Yes Vital Signs: Vital Signs x48h Temp Pulse Pulse Resp BP BP Pulse Ox 03/09/21 12:47 125/49 L 03/09/21 12:37 106/59 L 03/09/21 12:19 94/44 L 03/09/21 12:04 77 111/58 L 03/09/21 11:30 36.7 C 75 22 104/63 95 03/09/21 11:12 80 16 03/09/21 10:33 22 153/63 H 94 03/09/21 08:02 36.6 C 77 24 130/60 94 03/09/21 07:24 82 18 Intake & Output: Intake & Output 03/06/21 03/07/21 03/08/21 03/09/21 23:59 23:59 23:59 23:59 Intake Total 790 600 620 Output Total 2450 2025 700 Balance -1660 -1425 -80 - Lab Results Fish Bones: 03/09/21 04:50 03/09/21 04:50 Other Labs: Lab Results x24hrs 03/09/21 03/09/21 03/09/21 Range/Units 11:00 04:50 04:50 WBC 7.3 (4.8-10.8) x10^3/uL RBC 3.15 L (4.20-5.40) 10^6/uL Hgb 8.7 L (12.0-16.0) g/dL Hct 30.0 L (37.0-47.0) % MCV 95.2 (81.0-99.0) fL MCH 27.6 (27.0-31.0) pg MCHC 29.0 L (32.0-36.0) g/dL RDW 19.6 H (12.0-15.0) % Plt Count 656 H (130-450) 10^3/uL MPV 9.5 (7.9-10.8) fL Neut # (Auto) 4.5 (1.5-6.6) 10^3/uL Lymph # (Auto) 1.3 L (1.5-3.5) 10^3/uL [place] # (Auto) 0.9 (0.0-1.0) 10^3/uL Eos # (Auto) 0.5 (0.0-0.7) 10^3/uL Baso # (Auto) 0.0 (0.0-0.1) 10^3/uL Absolute Nucleated RBC 0.02 x10^3/uL Nucleated RBC % 0.3 /100WBC Sodium 139 (135-145) mmol/L Potassium 3.9 (3.5-5.0) mmol/L Chloride 95 L (101-111) mmol/L Carbon Dioxide 33 H (21-32) mmol/L Anion Gap 11.0 (6-13) BUN 24 H (6-20) mg/dL Creatinine 1.0 (0.4-1.0) mg/dL Estimated GFR (MDRD) 55 L (>89) Glucose 94 (70-100) mg/dL Calcium 8.9 (8.5-10.3) mg/dL Magnesium 2.2 (1.7-2.8) mg/dL Troponin I High Sens 15.7 H* (2.3-14.8) ng/L B-Natriuretic Peptide (5-100) pg/mL 03/08/21 Range/Units 15:19 WBC (4.8-10.8) x10^3/uL RBC (4.20-5.40) 10^6/uL Hgb (12.0-16.0) g/dL Hct (37.0-47.0) % MCV (81.0-99.0) fL MCH (27.0-31.0) pg MCHC (32.0-36.0) g/dL RDW (12.0-15.0) % Plt Count (130-450) 10^3/uL MPV (7.9-10.8) fL Neut # (Auto) (1.5-6.6) 10^3/uL Lymph # (Auto) (1.5-3.5) 10^3/uL [place] # (Auto) (0.0-1.0) 10^3/uL Eos # (Auto) (0.0-0.7) 10^3/uL Baso # (Auto) (0.0-0.1) 10^3/uL Absolute Nucleated RBC x10^3/uL Nucleated RBC % /100WBC Sodium (135-145) mmol/L Potassium (3.5-5.0) mmol/L Chloride (101-111) mmol/L Carbon Dioxide (21-32) mmol/L Anion Gap (6-13) BUN (6-20) mg/dL Creatinine (0.4-1.0) mg/dL Estimated GFR (MDRD) (>89) Glucose (70-100) mg/dL Calcium (8.5-10.3) mg/dL Magnesium (1.7-2.8) mg/dL Troponin I High Sens (2.3-14.8) ng/L B-Natriuretic Peptide 569 H (5-100) pg/mL Assessment/Plan - Problem List (1) Chest pain Impression: Patient with sudden onset of chest pain today, right parasternal region. Seems to have had an onset related to walking. Doubt this is CAD, as she is a recent CABG patient and shows no other evidence of occlusion of graft. Vitals stable. EKG ordered stat and reviewed with no evidence of ST segment changes or T wave abnormalities. Stat troponin checked and is actually lower than the last time it was checked and is not indicative of ischemia. Trial of GI cocktail was ineffective. Trial of nitroglycerin sublingual seems to have helped but resulted in somewhat soft blood pressure. Given she has had this on and off in the past and has responded to pain medications we will continue the current strategy of pain medications while further monitoring for other etiology. She is still medically stable for discharge and given that she is on her home oxygen requirement, no indications for broadening work-up at this point in time but will monitor closely pending discharge placement availability. Qualifiers: Chest pain type: pleurodynia Qualified Code(s): R07.81 - Pleurodynia (2) Congestive heart failure Impression: Patient is euvolemic on exam. No lung crackles. On home oxygen requirement. Will transition to oral Lasix 40 mg twice daily. 03/08 ECHO reveal preserved EF, suspect pt has diastolic heart issue. Chest x-ray show worsening pulmonary edema. Patient still had a 92% sats on 2 L oxygen although which is decreases from 95% to 96% on 2 Lpm of O2. she report she still has SOB. increased to BID of IV of Lasix, fluid restriction, check BNP, supplement of O2, vital and lab monitor continue her home aspirin, atenolol, Lipitor, amiodarone. 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 Echo is pending. We will continue diuretics, Supplemental oxygen as needed. Qualifiers: Heart failure type: unspecified Heart failure chronicity: acute on chronic Qualified Code(s): I50.9 - Heart failure, unspecified (3) Coronary artery disease Impression: Stable. See above for chest pain. No indication of acute cardiac event. Continue current medications. (4) Physical deconditioning Impression: Appreciate physical therapy assistance. Meets criteria for shelter facility placement. Pending availability of facility for placement. (5) Anxiety Impression: Continues to have anxiety, partly related to recent medical events. I feel like this is playing a role in somatic symptoms. Still relatively well controlled however so continue to monitorAvoid adding any sedatives given her extensive pain medication use. (6) COPD without exacerbation Impression: Stable. Baseline oxygen requirement. Continue as needed oxygen supplementation
[2021-03-09] MEDS: FUROSEMIDE 40 MG TABLET PO SCH (13:36)
[2021-03-09] MEDS ORDERED: SENNA 8.6 MG TABLET PO PRN (16:13)
[2021-03-09] MEDS: DOCUSATE SODIUM 250 MG CAPSULE PO PRN (17:22)
[2021-03-09] MEDS: KETOROLAC 15 MG/ML VIAL IVP PRN (18:44)
[2021-03-09] MEDS: SODIUM CHLORIDE FLUSH 0.9% 10 ML SYRINGE IVP PRN (18:44)
[2021-03-09] MEDS: ATORVASTATIN 40 MG TABLET PO SCH (21:00)
[2021-03-10] MEDS: ACETAMINOPHEN 325 MG TABLET PO PRN ×2 (04:47→17:00)
[2021-03-10 05:16] LABS: BASOPHILS % (AUTO) 0.5 %; EOSINOPHILS # (AUTO) 0.6 10^3/uL (0.0-0.7); HCT - HEMATOCRIT 31.3 % (37.0-47.0); LYMPHOCYTES # (AUTO) 1.1 10^3/uL (1.5-3.5); LYMPHOCYTES % (AUTO) 18.6 %; MEAN CORPUSCULAR HEMOGLOBIN 27.4 pg (27.0-31.0); MEAN CORPUSCULAR HGB CONC 28.8 g/dL (32.0-36.0); MEAN CORPUSCULAR VOLUME 95.1 fL (81.0-99.0); MEAN PLATELET VOLUME 9.3 fL (7.9-10.8); MONOCYTES # (AUTO) 0.8 10^3/uL (0.0-1.0); MONOCYTES % (AUTO) 12.3 %; NEUTROPHILS # (AUTO) 3.5 10^3/uL (1.5-6.6); NEUTROPHILS % (AUTO) 57.9 %; NRBC ABSOLUTE COUNT (AUTO) 0.02 x10^3/uL; NUCLEATED RED BLOOD CELLS AUTO 0.3 /100WBC; PLT - PLATELET COUNT 639 10^3/uL (130-450); RED BLOOD COUNT 3.29 10^6/uL (4.20-5.40); RED CELL DISTRIBUTION WIDTH 19.7 % (12.0-15.0); WHITE BLOOD COUNT 6.1 x10^3/uL (4.8-10.8)
[2021-03-10 05:25] LABS: CALCIUM 9.1 mg/dL (8.5-10.3); CREATININE 1.3 mg/dL (0.4-1.0); MAGNESIUM 2.3 mg/dL (1.7-2.8); POTASSIUM 3.9 mmol/L (3.5-5.0)
[2021-03-10] MEDS: FUROSEMIDE 40 MG TABLET PO SCH ×2 (05:29→13:34)
[2021-03-10] MEDS: PANTOPRAZOLE 40 MG TABLET PO SCH (05:29)
[2021-03-10] MEDS: MORPHINE ER 15 MG TABLET PO SCH ×3 (05:29→22:34)
[2021-03-10] MEDS: SENNA 8.6 MG TABLET PO SCH ×5 (05:32→23:51)
[2021-03-10] MEDS: IPRATROPIUM/ALBUTEROL 3 ML NEB INH SCH ×5 (05:40→20:25)
[2021-03-10] MEDS: guaiFENesin 600 MG TABLET PO SCH ×2 (08:02→20:59)
[2021-03-10] MEDS: AMIODARONE 200 MG TABLET PO SCH (08:02)
[2021-03-10] MEDS: ASPIRIN CHEW 81 MG TABLET PO SCH (08:02)
[2021-03-10] MEDS: atenoloL 25 MG TABLET PO SCH (08:02)
[2021-03-10] MEDS: polyethylene glycoL 3350 17 GM PACKET PO SCH (08:03)
[2021-03-10] MEDS: FERROUS SULFATE 325 MG TABLET PO SCH ×2 (08:03→17:00)
[2021-03-10] MEDS: levoFLOXacin 250 MG TABLET PO SCH (08:06)
[2021-03-10] MEDS: oxyCODONE 5 MG TABLET PO PRN (08:06)
[2021-03-10] MEDS: ENOXAPARIN 40 MG/0.4 ML SYRINGE SUBQ SCH (08:09)
[2021-03-10] MEDS: SODIUM CHLORIDE FLUSH 0.9% 10 ML SYRINGE IVP SCH ×3 (08:10→23:51)
[2021-03-10] MEDS ORDERED: MAGNESIUM HYDROXIDE 2,400 MG/30 ML UDC PO ONE (09:03)
[2021-03-10] MEDS: KETOROLAC 15 MG/ML VIAL IVP PRN ×2 (09:12→23:52)
--- NOTE | 2021-03-10 10:44 | PROVIDER PROGRESS NOTE ---
Subjective - Prog Note Date Prog Note Date: 03/10/21 Prog Note Time: 10:41 - Subjective Pt reports feeling: No change (Continues to complain of right-sided chest pain. Otherwise, breathing is normal. No new complaints.) Current Medications - Current Medications Current Medications: Current Medications Generic Name Dose Route Start Last Admin Trade Name Freq PRN Reason Stop Dose Admin Acetaminophen 650 mg 03/06/21 20:44 03/10/21 04:47 Acetaminophen 325 Mg Tablet PO 650 mg Q4HR PRN Administration Pain 1 to 4 Albuterol/Ipratropium 3 ml 03/06/21 21:00 03/10/21 05:40 Ipratropium/Albuterol 3 Ml Neb INH 3 ml RTQID ERNESTINA Administration Amiodarone HCl 200 mg 03/07/21 09:00 03/10/21 08:02 Amiodarone 200 Mg Tablet PO 200 mg DAILY ERNESTINA Administration Aspirin 162 mg 03/07/21 09:00 03/10/21 08:02 Aspirin Chew 81 Mg Tablet PO 162 mg DAILY ERNESTINA Administration Atenolol 25 mg 03/07/21 09:00 03/10/21 08:02 Atenolol 25 Mg Tablet PO 25 mg DAILY ERNESTINA Administration Atorvastatin Calcium 40 mg 03/07/21 21:00 03/09/21 21:00 Atorvastatin 40 Mg Tablet PO 40 mg QPM ERNESTINA Administration Docusate Sodium 250 - 500 mg 03/09/21 16:12 03/09/21 17:22 Docusate Sodium 250 Mg Capsule PO 500 mg BID PRN Administration Constipation Enoxaparin Sodium 40 mg 03/07/21 09:00 03/10/21 08:09 Enoxaparin 40 Mg/0.4 Ml Syringe SUBQ 40 mg DAILY ERNESTINA Administration Ferrous Sulfate 325 mg 03/07/21 08:00 03/10/21 08:03 Ferrous Sulfate 325 Mg Tablet PO 325 mg BIDWM ERNESTINA Administration Guaifenesin 600 mg 03/08/21 09:00 03/10/21 08:02 Guaifenesin 600 Mg Tablet PO 600 mg BID ERNESTINA Administration Ketorolac Tromethamine 15 mg 03/09/21 17:57 03/10/21 09:12 Ketorolac 15 Mg/Ml Vial IVP 03/14/21 17:56 15 mg Q6HR PRN Administration PAIN Lidocaine 1 patch 03/07/21 11:02 03/09/21 08:10 Lidocaine Patch 5% TOP 1 patch DAILY PRN Administration PAIN Morphine Sulfate 15 mg 03/07/21 22:00 03/10/21 05:29 Morphine Er 15 Mg Tablet PO 15 mg TID ERNESTINA Administration Nitroglycerin 0.4 mg 03/09/21 11:54 03/09/21 12:04 Nitroglycerin Sl 0.4 Mg Tablet SL 0.4 mg Q5MIN PRN Administration Chest Pain Ondansetron HCl 4 mg 03/06/21 20:44 03/09/21 09:20 Ondansetron Odt 4 Mg Tablet TL 4 mg Q6HR PRN Administration Nausea / Vomiting Oxycodone HCl 10 mg 03/08/21 14:18 03/10/21 08:06 Oxycodone 5 Mg Tablet PO 10 mg Q6HR PRN Administration PAIN Pantoprazole Sodium 40 mg 03/07/21 07:00 03/10/21 05:29 Pantoprazole 40 Mg Tablet PO 40 mg QDAC ERNESTINA Administration Polyethylene Glycol 17 gm 03/07/21 21:00 03/10/21 08:03 Polyethylene Glycol 3350 17 Gm Packet PO Not Given DAILY ERNESTINA Senna 17.2 - 25.8 mg 03/10/21 06:00 03/10/21 05:32 Senna 8.6 Mg Tablet PO 03/11/21 00:01 17.2 mg Q6H ERNESTINA Administration Sodium Chloride 10 ml 03/06/21 20:44 03/09/21 18:44 Sodium Chloride Flush 0.9% 10 Ml Syringe IVP 10 ml PRN PRN Administration NEEDED PER PROVIDER ORDERS Sodium Chloride 10 ml 03/07/21 01:00 03/10/21 08:10 Sodium Chloride Flush 0.9% 10 Ml Syringe IVP 10 ml 0100,0900,1700 ERNESTINA Administration Objective - Vital Signs/Intake & Output Reviewed Vital Signs: Yes Vital Signs: Vital Signs x48h Temp Pulse Pulse Resp BP Pulse Ox 03/10/21 07:45 37.4 C 79 18 115/65 95 03/10/21 05:41 85 18 03/10/21 04:35 36.7 C 78 18 112/57 L 95 Intake & Output: Intake & Output 03/07/21 03/08/21 03/09/21 03/10/21 23:59 23:59 23:59 23:59 Intake Total 888 489 4904 270 Output Total [id number] 1150 750 Balance -4857 -2938 110 -480 - Objective General Appearance: positive: No acute distress Eyes Bilateral: positive: Normal inspection ENT: positive: ENT inspection nml Neck: positive: Nml inspection Respiratory: positive: No respiratory distress, Breath sounds nml. negative: Chest non-tender (Chest wall tenderness right upper chest wall lateral to the sternum) Cardiovascular: positive: Regular rate & rhythm, No murmur, No gallop Abdomen: positive: Non-tender, No organomegaly, Nml bowel sounds Skin: positive: Color nml Extremities: positive: Pedal edema (1+ pitting edema left foot up to the lower ankle, right lower extremity no edema) Neurologic/Psychiatric: positive: Oriented x3 - Lab Results Fish Bones: 03/10/21 04:42 03/10/21 04:42 Other Labs: Lab Results x24hrs 03/10/21 03/10/21 03/09/21 Range/Units 04:42 04:42 11:00 WBC 6.1 (4.8-10.8) x10^3/uL RBC 3.29 L (4.20-5.40) 10^6/uL Hgb 9.0 L (12.0-16.0) g/dL Hct 31.3 L (37.0-47.0) % MCV 95.1 (81.0-99.0) fL MCH 27.4 (27.0-31.0) pg MCHC 28.8 L (32.0-36.0) g/dL RDW 19.7 H (12.0-15.0) % Plt Count 639 H (130-450) 10^3/uL MPV 9.3 (7.9-10.8) fL Neut # (Auto) 3.5 (1.5-6.6) 10^3/uL Lymph # (Auto) 1.1 L (1.5-3.5) 10^3/uL [place] # (Auto) 0.8 (0.0-1.0) 10^3/uL Eos # (Auto) 0.6 (0.0-0.7) 10^3/uL Baso # (Auto) 0.0 (0.0-0.1) 10^3/uL Absolute Nucleated RBC 0.02 x10^3/uL Nucleated RBC % 0.3 /100WBC Sodium 139 (135-145) mmol/L Potassium 3.9 (3.5-5.0) mmol/L Chloride 95 L (101-111) mmol/L Carbon Dioxide 35 H (21-32) mmol/L Anion Gap 9.0 (6-13) BUN 28 H (6-20) mg/dL Creatinine 1.3 H (0.4-1.0) mg/dL Estimated GFR (MDRD) 41 L (>89) Glucose 98 (70-100) mg/dL Calcium 9.1 (8.5-10.3) mg/dL Magnesium 2.3 (1.7-2.8) mg/dL Troponin I High Sens 15.7 H* (2.3-14.8) ng/L Assessment/Plan - Problem List (1) Chest pain Impression: Continues to have chest wall pain, inconsistent with CAD etiology on presentation as well as based on interpretation of EKG and cardiac enzymes. Continue conservative treatments, as needed pain medications. As needed nitroglycerin is available for anginal type symptoms. I suspect this is going to be a chronic musculoskeletal source of pain for the patient and will need to be continued to be managed as an outpatient but at this point there are no characteristics of this pain that indicate further cardiac work-up in this patient with known history of recent CABG and no postoperative cardiac complications. Qualifiers: Chest pain type: pleurodynia Qualified Code(s): R07.81 - Pleurodynia (2) Congestive heart failure Impression: Mild worsening of left lower extremity edema. IV Lasix was transitioned to oral yesterday and may need to be titrated. Increase Lasix from 40 mg twice daily to 60 mg twice daily. Continue fluid restriction. Monitor I's and O's. Monitor renal function labs. Qualifiers: Heart failure type: unspecified Heart failure chronicity: acute on chronic Qualified Code(s): I50.9 - Heart failure, unspecified (3) Coronary artery disease Impression: Stable, as above recent episodes of chest pain do not appear to be anginal in nature and more muscular skeletal and pleurodynia. Continue to monitor. Continue current meds including as needed nitroglycerin. (4) Physical deconditioning Impression: Appreciate physical therapy assistance. Meets criteria for correction facility placement. Pending availability of facility for placement. (5) Anxiety Impression: Continues to have anxiety, partly related to recent medical events. I feel like this is playing a role in somatic symptoms. Still relatively well controlled however so continue to monitorAvoid adding any sedatives given her extensive pain medication use. (6) COPD without exacerbation Impression: Stable. Baseline oxygen requirement. Continue as needed oxygen supplementation
[2021-03-10] MEDS ORDERED: FUROSEMIDE 20 MG TABLET PO ONE (11:00)
[2021-03-10] MEDS: DOCUSATE SODIUM 250 MG CAPSULE PO PRN (19:27)
[2021-03-10] MEDS: ATORVASTATIN 40 MG TABLET PO SCH (20:59)
[2021-03-11 05:17] LABS: BASOPHILS % (AUTO) 0.3 %; EOSINOPHILS # (AUTO) 0.7 10^3/uL (0.0-0.7); EOSINOPHILS % (AUTO) 8.6 %; HCT - HEMATOCRIT 30.4 % (37.0-47.0); HGB - HEMOGLOBIN 8.9 g/dL (12.0-16.0); LYMPHOCYTES # (AUTO) 1.3 10^3/uL (1.5-3.5); LYMPHOCYTES % (AUTO) 16.4 %; MEAN CORPUSCULAR HEMOGLOBIN 27.6 pg (27.0-31.0); MEAN CORPUSCULAR HGB CONC 29.3 g/dL (32.0-36.0); MEAN CORPUSCULAR VOLUME 94.1 fL (81.0-99.0); MEAN PLATELET VOLUME 9.1 fL (7.9-10.8); MONOCYTES # (AUTO) 0.8 10^3/uL (0.0-1.0); MONOCYTES % (AUTO) 10.2 %; NEUTROPHILS # (AUTO) 4.9 10^3/uL (1.5-6.6); NEUTROPHILS % (AUTO) 64.2 %; PLT - PLATELET COUNT 591 10^3/uL (130-450); RED BLOOD COUNT 3.23 10^6/uL (4.20-5.40); RED CELL DISTRIBUTION WIDTH 19.6 % (12.0-15.0); WHITE BLOOD COUNT 7.7 x10^3/uL (4.8-10.8)
[2021-03-11 05:31] LABS: CALCIUM 8.5 mg/dL (8.5-10.3); CREATININE 1.1 mg/dL (0.4-1.0); MAGNESIUM 2.7 mg/dL (1.7-2.8); POTASSIUM 3.9 mmol/L (3.5-5.0)
[2021-03-11] MEDS: ACETAMINOPHEN 325 MG TABLET PO PRN (06:07)
[2021-03-11] MEDS: PANTOPRAZOLE 40 MG TABLET PO SCH (06:08)
[2021-03-11] MEDS: FUROSEMIDE 40 MG TABLET PO SCH ×2 (06:08→13:11)
[2021-03-11] MEDS: MORPHINE ER 15 MG TABLET PO SCH ×3 (06:09→20:50)
[2021-03-11] MEDS: IPRATROPIUM/ALBUTEROL 3 ML NEB INH SCH ×4 (07:35→21:57)
[2021-03-11] MEDS: ENOXAPARIN 40 MG/0.4 ML SYRINGE SUBQ SCH (08:06)
[2021-03-11] MEDS: guaiFENesin 600 MG TABLET PO SCH ×2 (08:07→20:50)
[2021-03-11] MEDS: atenoloL 25 MG TABLET PO SCH (08:07)
[2021-03-11] MEDS: AMIODARONE 200 MG TABLET PO SCH (08:07)
[2021-03-11] MEDS: ASPIRIN CHEW 81 MG TABLET PO SCH (08:07)
[2021-03-11] MEDS: FERROUS SULFATE 325 MG TABLET PO SCH ×2 (08:07→17:08)
[2021-03-11] MEDS: DOCUSATE SODIUM 250 MG CAPSULE PO PRN (08:08)
[2021-03-11] MEDS: polyethylene glycoL 3350 17 GM PACKET PO SCH (08:20)
[2021-03-11] MEDS: SODIUM CHLORIDE FLUSH 0.9% 10 ML SYRINGE IVP SCH ×2 (08:20→15:48)
[2021-03-11] MEDS: OXYMETAZOLINE HCL 100 SPRAYS BOTTLE NAS PRN (14:39)
[2021-03-11 15:05] LABS: B. PARAPERTUSSIS- RESP PCR PAN NOT DETECTED; B. PERTUSSIS- RESP PCR PANEL NOT DETECTED; C. PNEUMONIAE- RESP PCR PANEL NOT DETECTED; CORONAVIRUS 229E-RESP PCR NOT DETECTED; CORONAVIRUS HKU1-RESP PCR NOT DETECTED; CORONAVIRUS NL63-RESP PCR NOT DETECTED; CORONAVIRUS OC43-RESP PCR NOT DETECTED; HUMAN METAPNEUMOVIRUS NOT DETECTED; INFLUENZA A- RESP PCR PANEL NOT DETECTED; INFLUENZA B - RESP PCR PANEL NOT DETECTED; M. PNEUMONIAE- RESP PCR PANEL NOT DETECTED; PARAINFLUENZA VIRUS 1 NOT DETECTED; PARAINFLUENZA VIRUS 2 NOT DETECTED; PARAINFLUENZA VIRUS 3 NOT DETECTED; PARAINFLUENZA VIRUS 4 NOT DETECTED; RHINOVIRUS/ENTEROVIRUS NOT DETECTED; RSV- RESP PCR PANEL NOT DETECTED; SARS-CoV-2 -RESP PCR PANEL NOT DETECTED
--- NOTE | 2021-03-11 15:17 | PROVIDER PROGRESS NOTE ---
Subjective - Prog Note Date Prog Note Date: 03/11/21 Prog Note Time: 15:15 - Subjective Pt reports feeling: Improved (Patient was feeling much better earlier this morning on rounds. She was more cheerful, denies any chest pain or shortness of breath and was in a better mood. Later in the afternoon she had an episode of epistaxis and was somewhat uncomfortable because of this but when it resolved she was back to h) Current Medications - Current Medications Current Medications: Current Medications Generic Name Dose Route Start Last Admin Trade Name Freq PRN Reason Stop Dose Admin Acetaminophen 650 mg 03/06/21 20:44 03/11/21 06:07 Acetaminophen 325 Mg Tablet PO 650 mg Q4HR PRN Administration Pain 1 to 4 Albuterol/Ipratropium 3 ml 03/06/21 21:00 03/11/21 11:35 Ipratropium/Albuterol 3 Ml Neb INH 3 ml RTQID ERNESTINA Administration Amiodarone HCl 200 mg 03/07/21 09:00 03/11/21 08:07 Amiodarone 200 Mg Tablet PO 200 mg DAILY ERNESTINA Administration Aspirin 162 mg 03/07/21 09:00 03/11/21 08:07 Aspirin Chew 81 Mg Tablet PO 162 mg DAILY ERNESTINA Administration Atenolol 25 mg 03/07/21 09:00 03/11/21 08:07 Atenolol 25 Mg Tablet PO 25 mg DAILY ERNESTINA Administration Atorvastatin Calcium 40 mg 03/07/21 21:00 03/10/21 20:59 Atorvastatin 40 Mg Tablet PO 40 mg QPM ERNESTINA Administration Docusate Sodium 250 - 500 mg 03/09/21 16:12 03/11/21 08:08 Docusate Sodium 250 Mg Capsule PO 250 mg BID PRN Administration Constipation Enoxaparin Sodium 40 mg 03/07/21 09:00 03/11/21 08:06 Enoxaparin 40 Mg/0.4 Ml Syringe SUBQ 40 mg DAILY ERNESTINA Administration Ferrous Sulfate 325 mg 03/07/21 08:00 03/11/21 08:07 Ferrous Sulfate 325 Mg Tablet PO 325 mg BIDWM ERNESTINA Administration Furosemide 60 mg 03/10/21 14:00 03/11/21 13:11 Furosemide 40 Mg Tablet PO 60 mg BIDDIURETIC ERNESTINA Administration Guaifenesin 600 mg 03/08/21 09:00 06/28/21 08:07 Guaifenesin 600 Mg Tablet PO 600 mg BID ERNESTINA Administration Ketorolac Tromethamine 15 mg 03/09/21 17:57 03/10/21 23:52 Ketorolac 15 Mg/Ml Vial IVP 03/14/21 17:56 15 mg Q6HR PRN Administration PAIN Lidocaine 1 patch 03/07/21 11:02 03/09/21 08:10 Lidocaine Patch 5% TOP 1 patch DAILY PRN Administration PAIN Morphine Sulfate 15 mg 03/07/21 22:00 03/11/21 13:11 Morphine Er 15 Mg Tablet PO 15 mg TID ERNESTINA Administration Nitroglycerin 0.4 mg 03/09/21 11:54 03/09/21 12:04 Nitroglycerin Sl 0.4 Mg Tablet SL 0.4 mg Q5MIN PRN Administration Chest Pain Ondansetron HCl 4 mg 03/06/21 20:44 03/09/21 09:20 Ondansetron Odt 4 Mg Tablet TL 4 mg Q6HR PRN Administration Nausea / Vomiting Oxycodone HCl 10 mg 03/08/21 14:18 03/10/21 08:06 Oxycodone 5 Mg Tablet PO 10 mg Q6HR PRN Administration PAIN Oxymetazoline HCl 2 sprays 03/11/21 14:28 03/11/21 14:39 Oxymetazoline Hcl 100 Sprays Bottle AJ 2 sprays BID PRN Administration Nasal Congestion Pantoprazole Sodium 40 mg 03/07/21 07:00 03/11/21 06:08 Pantoprazole 40 Mg Tablet PO 40 mg QDAC ERNESTINA Administration Polyethylene Glycol 17 gm 03/07/21 21:00 03/11/21 08:20 Polyethylene Glycol 3350 17 Gm Packet PO Not Given DAILY ERNESTINA Sodium Chloride 10 ml 03/06/21 20:44 03/09/21 18:44 Sodium Chloride Flush 0.9% 10 Ml Syringe IVP 10 ml PRN PRN Administration NEEDED PER PROVIDER ORDERS Sodium Chloride 10 ml 03/07/21 01:00 03/11/21 08:20 Sodium Chloride Flush 0.9% 10 Ml Syringe IVP 10 ml 0100,0900,1700 ERNESTINA Administration Objective - Vital Signs/Intake & Output Reviewed Vital Signs: Yes Vital Signs: Vital Signs x48h Temp Pulse Pulse Resp BP Pulse Ox 03/11/21 13:03 124/60 03/11/21 12:50 36.7 C 78 20 90/44 L 96 03/11/21 11:35 72 16 03/11/21 08:30 36.8 C 77 16 118/65 96 03/11/21 07:36 77 24 Intake & Output: Intake & Output 03/08/21 03/09/21 03/10/21 03/11/21 23:59 23:59 23:59 23:59 Intake Total 600 1260 840 735 Output Total 5 1150 1500 350 Balance -1425 110 -660 385 - Objective General Appearance: positive: No acute distress Eyes Bilateral: positive: Normal inspection ENT: positive: ENT inspection nml, Other (On morning rounds patient had a normal ENT exam however later in the day she developed an episode of epistaxis and also had coughing up of clotted blood which resolved once the nosebleed stopped.) Neck: positive: Nml inspection, Thyroid nml, No JVD Respiratory: positive: Chest non-tender, No respiratory distress, Breath sounds nml Cardiovascular: positive: Regular rate & rhythm, No murmur, No gallop Abdomen: positive: Non-tender, No organomegaly, Nml bowel sounds Skin: positive: Color nml Extremities: positive: No pedal edema Neurologic/Psychiatric: positive: Oriented x3, CN's nml (2-12), Motor nml, Sensation nml - Lab Results Fish Bones: 03/11/21 05:05 03/11/21 05:05 Other Labs: Lab Results x24hrs 03/11/21 03/11/21 03/11/21 Range/Units 13:40 05:05 05:05 WBC 7.7 (4.8-10.8) x10^3/uL RBC 3.23 L (4.20-5.40) 10^6/uL Hgb 8.9 L (12.0-16.0) g/dL Hct 30.4 L (37.0-47.0) % MCV 94.1 (81.0-99.0) fL MCH 27.6 (27.0-31.0) pg MCHC 29.3 L (32.0-36.0) g/dL RDW 19.6 H (12.0-15.0) % Plt Count 591 H (130-450) 10^3/uL MPV 9.1 (7.9-10.8) fL Neut # (Auto) 4.9 (1.5-6.6) 10^3/uL Lymph # (Auto) 1.3 L (1.5-3.5) 10^3/uL [place] # (Auto) 0.8 (0.0-1.0) 10^3/uL Eos # (Auto) 0.7 (0.0-0.7) 10^3/uL Baso # (Auto) 0.0 (0.0-0.1) 10^3/uL Absolute Nucleated RBC 0.00 x10^3/uL Nucleated RBC % 0.0 /100WBC Sodium 140 (135-145) mmol/L Potassium 3.9 (3.5-5.0) mmol/L Chloride 92 L (101-111) mmol/L Carbon Dioxide 35 H (21-32) mmol/L Anion Gap 13.0 (6-13) BUN 28 H (6-20) mg/dL Creatinine 1.1 H (0.4-1.0) mg/dL Estimated GFR (MDRD) 50 L (>89) Glucose 89 (70-100) mg/dL Calcium 8.5 (8.5-10.3) mg/dL Magnesium 2.7 (1.7-2.8) mg/dL Nasal Adenovirus (PCR) NOT DETECTED Nasal B. parapertussis DNA (PCR) NOT DETECTED Nasal Coronavir 229E PCR NOT DETECTED Nasal Coronavir HKU1 PCR NOT DETECTED Nasal Coronavir NL63 PCR NOT DETECTED Nasal Coronavir OC43 PCR NOT DETECTED Nasal Enterovir/Rhinovir PCR NOT DETECTED Nasal Influenza B PCR NOT DETECTED Nasal Influenza A PCR NOT DETECTED Nasal Parainfluen 1 PCR NOT DETECTED Nasal Parainfluen 2 PCR NOT DETECTED Nasal Parainfluen 3 PCR NOT DETECTED Nasal Parainfluen 4 PCR NOT DETECTED Nasal RSV (PCR) NOT DETECTED Nasal B.pertussis DNA PCR NOT DETECTED Nasal C.pneumoniae (PCR) NOT DETECTED Aj Human Metapneumo PCR NOT DETECTED Nasal M.pneumoniae (PCR) NOT DETECTED Nasal SARS-CoV-2 (PCR) NOT DETECTED - Diagnostic Imaging Diagnostic Imaging Results: positive: Prelim report reviewed Assessment/Plan - Problem List (1) Epistaxis Impression: She had an episode of epistaxis today followed by coughing up a few blood clots. I ordered Afrin and check back in on her in about half an hour later the bleeding seemed to have stopped. We will continue to monitor for further nosebleeds. Very confident that the hemoptysis was secondary to postnasal epistaxis blood forming clots and then being coughed back up. We will continue to monitor for any further evidence of either ecchymosis or hemoptysis but at this point I do not think any further work-up or treatment is necessary. (2) Chest pain Impression: Resolved. Previous work-up has been not consistent with ischemia. Continue to monitor. Qualifiers: Chest pain type: pleurodynia Qualified Code(s): R07.81 - Pleurodynia (3) Congestive heart failure Impression: She is currently euvolemic and is at her baseline oxygen requirement with no lower extremity edema and subjectively reports no's shortness of breath. Contin ue current dose of Lasix and monitor I's and O's. She is medically stable for discharge in a facility has been arranged for transportation to discharge tomorrow morning. Qualifiers: Heart failure type: unspecified Heart failure chronicity: acute on chronic Qualified Code(s): I50.9 - Heart failure, unspecified (4) Coronary artery disease Impression: Stable. Continue current medications. (5) Physical deconditioning Impression: Patient is a good candidate for long-term facility with cardiac rehab following that. Referral has been placed for cardiac/pulmonary rehab, but she will be discharging to long-term facility tomorrow at facility in [facility]. (6) Anxiety Impression: Stable. (7) COPD without exacerbation Impression: Stable. As above. (8) Hemoptysis Impression: As above, likely secondary to the ecchymosis. Resolved.
[2021-03-11] MEDS: KETOROLAC 15 MG/ML VIAL IVP PRN (15:48)
[2021-03-11] MEDS: ATORVASTATIN 40 MG TABLET PO SCH (20:51)
[2021-03-11] MEDS ORDERED: SIMETHICONE CHEW 80 MG TABLET PO PRN (22:08)
[2021-03-12] MEDS: oxyCODONE 5 MG TABLET PO PRN (00:45)
[2021-03-12] MEDS: SODIUM CHLORIDE FLUSH 0.9% 10 ML SYRINGE IVP SCH (01:03)
[2021-03-12] MEDS: ACETAMINOPHEN 325 MG TABLET PO PRN (05:57)
[2021-03-12] MEDS: FUROSEMIDE 40 MG TABLET PO SCH (05:58)
[2021-03-12] MEDS: PANTOPRAZOLE 40 MG TABLET PO SCH (05:58)
[2021-03-12] MEDS: MORPHINE ER 15 MG TABLET PO SCH (06:01)
[2021-03-12] MEDS: guaiFENesin 600 MG TABLET PO SCH (07:50)
[2021-03-12] MEDS: IPRATROPIUM/ALBUTEROL 3 ML NEB INH SCH (07:50)
[2021-03-12] MEDS: ASPIRIN CHEW 81 MG TABLET PO SCH (07:50)
[2021-03-12] MEDS: FERROUS SULFATE 325 MG TABLET PO SCH (07:51)
[2021-03-12] MEDS: polyethylene glycoL 3350 17 GM PACKET PO SCH (07:52)
[2021-03-12] MEDS: AMIODARONE 200 MG TABLET PO SCH (07:52)
[2021-03-12] MEDS: ENOXAPARIN 40 MG/0.4 ML SYRINGE SUBQ SCH (07:52)
[2021-03-12] MEDS: atenoloL 25 MG TABLET PO SCH (07:52)
[2021-03-12 07:57] VITALS: BP 130/96
[2021-03-12] MEDS: OXYMETAZOLINE HCL 100 SPRAYS BOTTLE NAS PRN (08:05)
--- NOTE | 2021-03-12 08:52 | Discharge Plan ---
"Discharge Plan for SNF / JESSICA - Discharge Plan And Transition Orders Problem Reviewed?: Yes Disposition: 03 SNF DC/Xfer Condition: Stable Allergies and Adverse Reactions: Allergies Allergy/AdvReac Type Severity Reaction Status Date / Time hydromorphone [From Dilaudid] AdvReac Emesis Verified 03/06/21 13:39 Penicillins AdvReac Hives Verified 03/06/21 13:39 Health Concerns: congestive heart failure, physical deconditioning Plan of Treatment: pt is prescribed new medication Lasix, pt may continue to be managed for CHF in SNF Pt may continue to have PT/OT in rehab. pt may continue to have cardiac/pulmonary rehab pt may have blood work CBC/BMP in one week. pt is prescribed new meds Lasix Care Goals: stabilization and improvement of her medical problems Assessment: discussed the care plan with pt, answered pt's questions, pt understood. - SNF / [facility] Transition Orders Admit to (Facility): [facility] Under the care of (Name): Medical provider of [facility] Discharge Diagnosis: nose bleeding(resolved), CHF, chest pain (resolved), CAD, physical deconditioning, anxiety, COPD Medicare Certification Statement: I certify that [facility] is medically necessary on a continuing basis for any of the conditions for which she/he is receiving care during hospitalization. Notify PCP of admission and forward orders to primary provider for signature. Weight on admission and: Daily Call PCP immediately if weight increases by: 2 kg Other Notification Orders: Call PCP immediately if patient develops dyspnea, chest pain/tightness or edema. House Bowel Program: Yes Additional Bowel Program Orders: If no BM after 2 days, nurse may give M.O.M. 30ml PO PRN and/or ducolax Supp 1 KS and/or ROBERTO 250mg P.O., and/or senna 1-2 tabs PO. On day 3 nurse may give repeat above order until residents constipation is resolved. Annual Influenza Vaccine (between May 15 and December 12): Yes Two-step PPD per [facility] [phone] or approved exception documents: Yes Treatments & Other Orders: pt is prescribed new medication Lasix, pt may continue to be managed for CHF in SNF. Pt may continue to have PT/OT in rehab. pt may continue to have cardiac/pulmonary rehab. pt may have blood work CBC/BMP in one week, pt is prescribed new meds Lasix Oxygen Orders: 2 LPM of O2 by NC or as needed Medication Orders: PLEASE REFER TO THE DISCHARGE MEDICATION LIST. Insulin Orders?: No - Medications New Prescriptions: Ferrous Sulfate [Feosol] 325 mg PO DAILY #30 tablet Furosemide [Lasix] 40 mg PO DAILY #15 tablet - Diet Type: Geriatric Texture: Regular Liquids: Thin May have monthly special meal: Yes - Therapies | Activity Therapy: Evaluation | Treat if indicated: PT, OT Rehabilitation Potential: Maximize functional status Activity: Activity as Tolerated"
--- NOTE | 2021-03-12 09:08 | DISCHARGE SUMMARY ---
Discharge Summary Admit Date: 03/06/21 Discharge Date: 03/12/21 Discharging Provider: Dex Gipson Condition at Discharge: Stable Discharge Disposition: SNF DC/Xfer Discharge Facility Name: [facility] - DIAGNOSES Discharge Diagnoses with Status of Each Condition: (1) Epistaxis resolved. no more nose bleeding. HGB is stable. (2) Chest pain Resolved. work-up has been not consistent with ischemia. (3) Congestive heart failure She is currently euvolemic and is at her baseline oxygen requirement with no lower extremity edema and subjectively reports no's shortness of breath. resume home medication schedule, followup with her yeast maker as out-pt. pt is prescribed Lasix (4) Coronary artery disease Stable. s/p of CABG. Continue current home medications. pt may followup with her vascularosurgeon (5) Physical deconditioning improved. Patient is a good candidate for intermediate facility with cardiac rehab following that. Referral has been placed for cardiac/pulmonary rehab. Now she is discharging to intermediate facility for rehab (6) Anxiety Stable. (7) COPD without exacerbation Stable. resume home meds (8) Hemoptysis Resolved. likely secondary to the ecchymosis. HGB is stable. (9)Iron deficiency anemia Patient had anemia study in the previous admission which show iron deficiency. She is prescribed iron pill. - [facility] History of Present Illness: refer from Dr. Andrade's HPI on 03/06/21 This is a pleasant 65-year-old female with a past medical history significant fo r COPD on 2 L of oxygen, coronary artery disease status post CABG a few weeks ago, depression who presents today complaining of shortness of breath, chest pain and weakness. She states she was discharged from [facility] yesterday morning after being hospitalized for more than 1 month. She was admitted here last month initially and found to be anemic with a hemoglobin in the 4's as well as an elevated troponin of nearly 500. She was ultimately transferred to [facility] where she underwent an EGD which confirmed an ulcer. This was likely due to the use of her NSAIDs at that time. She then had an angiogram which showed multivessel disease and ultimately underwent control of bypass on February 14. Her hospital course was prolonged due to weakness and physical deconditioning. She was diagnosed with pneumonia prior to discharge and was sent home on Levaquin to complete 5 more days of therapy for hospital-acquired pneumonia. She states that she was offered intermediate facility as it was recommended by her physicians there but ultimately she preferred to go home given she was hospitalized for a month. She states that she went home yesterday, she has had difficulty ambulating with a walker and does not feel safe at home. She is scheduled to see home health tomorrow for PT and social work to discuss potential intermediate care. She did not feel safe waiting at home and so she came to the emergency department today. The patient states she lives with her daughter and her 5-year-old grandson who has autism and therefore her daughter has been unable to care for her as her son requires a lot of attention. The patient reports since discharge she felt increasingly short of breath. She states she does have lower extremity edema which was present prior to discharge and she does not feel that this is worse. She does endorse orthopnea and a nonproductive cough. She reports no fevers or chills. She did receive her Covid vaccine yesterday and this was her first dose of Moderna. She has tried her home inhalers without much improvement. She states she does feel little bit short of breath at [facility] but this definitely felt worse yesterday after she went home. She also complains of chest pain which has been on and off. She does not feel it is sharp or pressure-like in nature. She states it is very difficult to describe her pain. It is not always present and is not necessarily worse with exertion. She feels that her chest is tender. Her chest pain resolves with morphine that she has been taking at home but she tries to limit the use of it as it makes her quite lethargic. She has been taking aspirin, Lipitor, atenolol as prescribed. Here in the emergency department, she is saturating well on her baseline 2 L of oxygen. Her labs revealed a hemoglobin of 8.6 with repeat a few hours later came back at 8.4. Her troponins are flat at 16. Her EKG reveals a sinus rhythm without evidence of ischemia. Her BNP is elevated in the 600s. Her chest x-ray reveals a moderate sized left pleural effusion and concern for pulmonary vascular congestion. Given the above findings, medicine was consulted for admission given the concern for potential heart failure. I did discuss goals of care with the patient and she would like to be a full code. - HOSPITAL COURSE Hospital Course: Patient is admitted for weakness, shortness of breathing, chest pain, patient was discharged recently from [facility] after she had CABG procedure. At that time patient was arranged for intermediate facility but patient was declined and patient went to home. Patient's chest pain was resolved. chest pain work up suggest patient's chest pain is more likely demand. After the patient was treated with diuretics, patient had a physical therapist or occupational therapist to have evaluation and treatment. Patient's shortness breathing is controlled. Patient's weakness is improved. Patient take 2 L oxygen at home for her COPD treatment as her baseline. Patient was recommended to discharge to SNF. patient was discharged to [facility] rehab. - ALLERGIES Allergies/Adverse Reactions: Allergies Allergy/AdvReac Type Severity Reaction Status Date / Time hydromorphone [From Dilaudid] AdvReac Emesis Verified 03/06/21 13:39 Penicillins AdvReac Hives Verified 03/06/21 13:39 - MEDICATIONS Home Medications: Ambulatory Orders Medication Instructions Recorded Confirmed Albuterol Sulf [Ventolin Hfa 2 puffs INH Q4H PRN #1 inhaler 08/09/16 03/07/21 Inhaler] Citalopram [CeleXA] 10 mg PO DAILY 03/16/18 03/07/21 Acetaminophen [Acetaminophen Extra 1,000 mg PO TID 03/07/21 03/07/21 Strength] Amiodarone [Pacerone] 200 mg PO DAILY 03/07/21 03/07/21 Aspirin Chewable [St Efren 162 mg PO DAILY 03/07/21 03/07/21 Aspirin] Atorvastatin Calcium 40 mg PO QPM 03/07/21 03/07/21 Budesonide/Formoterol Fumarate 2 puffs INH BID 03/07/21 03/07/21 [Symbicort 160-4.5 Mcg Inhaler] Guaifenesin/Dextromethorphan 1 tab PO BID 03/07/21 03/07/21 [Guaifenesin-Dm ER 1,200-60 mg] Morphine Sulfate [Ms Contin] 15 mg PO TID 03/07/21 03/07/21 Multivitamin [Theragran] 1 tab PO DAILY 03/07/21 03/07/21 Nortriptyline [Pamelor] 10 mg PO QPM 03/07/21 03/07/21 Pantoprazole [Protonix] 40 mg PO BIDAC 03/07/21 03/07/21 Tiotropium [place] [Spiriva] 1 puffs INH DAILY 03/07/21 03/07/21 atenoloL [Tenormin] 25 mg PO DAILY 03/07/21 03/07/21 oxyCODONE [Roxicodone] 2.5 - 10 mg PO Q4H PRN 03/07/21 03/07/21 Ferrous Sulfate [Feosol] 325 mg PO DAILY #30 tablet 03/12/21 Furosemide [Lasix] 40 mg PO DAILY #15 tablet 03/12/21 - PHYSICAL EXAM AT DISCHARGE General Appearance: positive: No acute distress, Alert. negative: Lethargic Eyes Bilateral: positive: Normal inspection, PERRL, No lid inflammation ENT: positive: ENT inspection nml, No signs of dehydration. negative: Purulent nasal drainage Neck: positive: Nml inspection, Trachea midline. negative: Thyromegaly, Tracheal deviation Respiratory: positive: Chest non-tender, No respiratory distress. negative: Wheezes, Rales Cardiovascular: positive: Regular rate & rhythm, No murmur. negative: Tachycardia, Bradycardia, Systolic murmur, Diastolic murmur Peripheral Pulses: positive: 2+ Abdomen: positive: Non-tender, Nml bowel sounds, No distention. negative: Tenderness Back: positive: Nml inspection Skin: positive: Color nml, Warm, Dry, Other (Surgery site for her CABG did not indicated infection, it is in the healing). negative: Cyanosis, Diaphoresis Extremities: positive: Non-tender, Full ROM, Nml appearance. negative: Calf tenderness Neurologic/Psychiatric: positive: Oriented x3, Motor nml, Sensation nml. negative: Weakness, Sensory loss, Facial droop, Slurred/abnml speech, Depressed mood/affect - LABS Result Diagrams: 03/11/21 05:05 03/11/21 05:05 - FOLLOW UP Follow Up: pt is prescribed new medication Lasix, pt may continue to be managed for CHF in SNF, followup with yeast maker Pt may continue to have PT/OT in rehab. pt may continue to have cardiac/pulmonary rehab pt may have blood work CBC/BMP in one week. pt is prescribed new meds Lasix - TIME SPENT Time Spent in Discharge (Minutes): 30
== END 2021-03-12 10:00 | DRG 292 ==
LOC: ED 13:25 → MS2 20:44 → OBSVTOIN 03-07 14:20
PROVIDERS: ADMIT Internal Medicine; ATTEND Nurse Practitioner Gerontology
DX: I11.0 Hypertensive heart disease with heart failure (principal); I50.9 Heart failure, unspecified; J43.9 Emphysema, unspecified; R04.2 Hemoptysis; I50.33 Acute on chronic diastolic (congestive) heart failure; D50.9 Iron deficiency anemia, unspecified; F41.9 Anxiety disorder, unspecified; F32.9 Major depressive disorder, single episode, unspecified; J44.9 Chronic obstructive pulmonary disease, unspecified; R04.0 Epistaxis; I25.10 Atherosclerotic heart disease of native coronary artery without angina pectoris; G89.29 Other chronic pain; M54.9 Dorsalgia, unspecified; M19.90 Unspecified osteoarthritis, unspecified site; Z66 Do not resuscitate; R53.81 Other malaise; R07.81 Pleurodynia; G89.18 Other acute postprocedural pain; Z20.822 Contact with and (suspected) exposure to COVID-19; Z99.81 Dependence on supplemental oxygen; Z95.1 Presence of aortocoronary bypass graft; Z79.1 Long term (current) use of non-steroidal anti-inflammatories (NSAID); Z79.899 Other long term (current) drug therapy; Z79.51 Long term (current) use of inhaled steroids; Z82.49 Family history of ischemic heart disease and other diseases of the circulatory system; Z87.891 Personal history of nicotine dependence; Z87.11 Personal history of peptic ulcer disease
CPT/HCPCS: 36415; 71045; 80048; 80053; 83690; 83735; 83880; 84484; 85025; 85610; 87070; 87205; 87631; 93005; 93306; 94640; 94664; 96372; 96374; 96375; 96376; 97116; 97161; 97165; 97530; 97535; 99285; A9270; J1170; J1650; 0202U

== ENCOUNTER 2021-08-14 08:00 | Outpatient (CLI) | payer MEDICARE, MEDICAID | END 2021-08-14 23:59 | disposition home or self-care (01) | LOC: LAB.N 08:00 | PROVIDERS: ATTEND Physician Assistant | DX: R05.9 Cough, unspecified (principal); Z20.822 Contact with and (suspected) exposure to COVID-19 ==

== ENCOUNTER 2021-08-14 14:23 | Outpatient (CLI) | payer MEDICARE, MEDICAID ==
--- NOTE | 2021-08-14 16:39 | XRAY Report ---
PROCEDURE: Chest 2 View X-Ray INDICATIONS: SOB TECHNIQUE: 2 view(s) of the chest. COMPARISON: 03/08/2021 FINDINGS: Surgical changes and devices: Median sternotomy changes from CABG. Lungs and pleura: No pleural effusions or pneumothorax. Lungs are clear. Mediastinum: Mediastinal contours are normal. Heart size is normal. Bones and chest wall: No suspicious bony abnormalities. Soft tissues appear unremarkable. IMPRESSION: No acute cardiopulmonary process demonstrated radiographically. Reviewed by: Robert Peterson MD on 08/14/2021 3:37 PM [facility] Approved by: Robert Peterson MD on 08/14/2021 3:37 PM [facility] Station ID: [id number]
== END 2021-08-14 23:59 | disposition home or self-care (01) ==
LOC: DI.N 14:23
PROVIDERS: ATTEND Physician Assistant
DX: R06.09 Other forms of dyspnea (principal); J18.9 Pneumonia, unspecified organism; R30.0 Dysuria; R07.0 Pain in throat; D69.6 Thrombocytopenia, unspecified; Z20.822 Contact with and (suspected) exposure to COVID-19
CPT/HCPCS: 71046; U0004

== ENCOUNTER 2024-02-12 15:13 | Outpatient (CLI) | payer MEDICARE, MEDICAID | END 2024-02-12 23:59 | disposition critical access hospital (66) | LOC: EMS 15:13 | DX: R06.02 Shortness of breath (principal); R05.8 Other specified cough; R06.2 Wheezing; R07.9 Chest pain, unspecified; Z99.81 Dependence on supplemental oxygen; R23.2 Flushing; R61 Generalized hyperhidrosis | CPT/HCPCS: A0425; A0427 ==

== ENCOUNTER 2024-02-12 15:41 | Emergency (ER) | payer MEDICARE, MEDICAID ==
--- NOTE | 2024-02-12 16:00 | ED Physician Documentation ---
PD HPI DYSPNEA - Stated complaint Stated Complaint: SOA - Chief complaint Chief Complaint: Resp - Additional information Additional information: This is a 68-year-old female who has a past medical history of COPD on chronic 2 to 3 L nasal cannula oxygen, CAD status post CABG, chronic anemia, breast cancer status postradiation and chemotherapy, who presents with a 2-week history of cough and increasing shortness of breath. She states she started with a viral URI type cold which she states she got from her daughter and just has not managed to clear it and then over the last few days has felt increasingly short of breath. She has a dry cough, occasional sputum production that is clear or white, she has increasing dyspnea on exertion, and had a bit of left chest pain today while walking out to the car to come to the ER. Pain was nonradiating, was while she was exerting herself, and has improved since she arrived here. She has not had a fever, denies any GI or symptoms. She has been using her regular COPD medication at home without relief in her symptoms. Patient is concerned that she may be anemic as she has had severe anemia in the past and etiology of this anemia has been unknown, patient reports having extensive w orkup in the never determine why she was so anemic. She is followed by hematology/oncology, as well as cardiology and pulmonology. Review of Systems Constitutional: reports: Reviewed and negative Eyes: reports: Reviewed and negative Ears: reports: Reviewed and negative Nose: reports: Reviewed and negative Throat: reports: Reviewed and negative Cardiac: reports: Chest pain / pressure Respiratory: reports: Dyspnea, Cough, Wheezing GI: reports: Reviewed and negative : reports: Reviewed and negative Skin: reports: Reviewed and negative Musculoskeletal: reports: Reviewed and negative Neurologic: reports: Reviewed and negative Psychiatric: reports: Reviewed and negative Endocrine: reports: Reviewed and negative PD PAST MEDICAL HISTORY - Past Medical History Past Medical History: Yes Cardiovascular: Hypertension, Coronary artery disease Respiratory: COPD Neuro: Migraines Endocrine/Autoimmune: None GI: GI bleed, Ulcers, Diverticulitis SAUSAGE STUFFER: Other : Other HEENT: None Psych: Depression, Anxiety Musculoskeletal: Osteoarthritis, Chronic back pain Derm: Other - Past Surgical History Past Surgical History: Yes General: Appendectomy /SAUSAGE STUFFER: Tubal ligation Cardiovascular: CABG, Cardiac catheterization - Present Medications Home Medications: Ambulatory Orders Medication Instructions Recorded Confirmed Albuterol Sulf [Ventolin Hfa 2 puffs INH Q4H PRN #1 inhaler 08/09/16 03/07/21 Inhaler] Citalopram [CeleXA] 10 mg PO DAILY 03/16/18 03/07/21 Acetaminophen [Acetaminophen Extra 1,000 mg PO TID 03/07/21 03/07/21 Strength] Amiodarone [Pacerone] 200 mg PO DAILY 03/07/21 03/07/21 Aspirin Chewable [St Efren 162 mg PO DAILY 03/07/21 03/07/21 Aspirin] Atorvastatin Calcium 40 mg PO QPM 03/07/21 03/07/21 Budesonide/Formoterol Fumarate 2 puffs INH BID 03/07/21 03/07/21 [Symbicort 160-4.5 Mcg Inhaler] Guaifenesin/Dextromethorphan 1 tab PO BID 03/07/21 03/07/21 [Guaifenesin-Dm ER 1,200-60 mg] Morphine Sulfate [Ms Contin] 15 mg PO TID 03/07/21 03/07/21 Multivitamin [Theragran] 1 tab PO DAILY 03/07/21 03/07/21 Nortriptyline [Pamelor] 10 mg PO QPM 03/07/21 03/07/21 Pantoprazole [Protonix] 40 mg PO BIDAC 03/07/21 03/07/21 Tiotropium Sebastian [Spiriva 1 puffs INH DAILY 03/07/21 03/07/21 Handihaler] atenoloL [Tenormin] 25 mg PO DAILY 03/07/21 03/07/21 oxyCODONE [Roxicodone] 2.5 - 10 mg PO Q4H PRN 03/07/21 03/07/21 Ferrous Sulfate [Feosol] 325 mg PO DAILY #30 tablet 03/12/21 Furosemide [Lasix] 40 mg PO DAILY #15 tablet 03/12/21 Doxycycline [Vibramycin] 100 mg PO BID #20 tablet 02/12/24 predniSONE [Deltasone] 10 mg PO [id number] #42 tab 02/12/24 - Allergies Allergies/Adverse Reactions: Allergies Allergy/AdvReac Type Severity Reaction Status Date / Time hydromorphone [From Dilaudid] AdvReac Emesis Verified 02/12/24 15:51 Penicillins AdvReac Hives Verified 02/12/24 15:51 - Social History Does the pt smoke?: Yes Smoking Status: Current every day smoker Does the pt drink ETOH?: No Does the pt have substance abuse?: No - Immunizations Immunizations are current?: Yes - POLST Patient has POLST: No POLST Status: DNR (When I describe resuscitation, chest compressions, cardioversion, intubation she does not want that done. However, she does want all measures of treatment to be provided to her up until that point of cardiac arrest or respiratory failure) PD ED PE NORMAL - Vitals Vital signs reviewed: Yes - General General: Alert and oriented X 3, Other (Appears mildly tachypneic, nontoxic, obese) - Neck Neck: Supple, no meningeal sign, No JVD - Cardiac Cardiac: No murmur, Strong equal pulses (t), Other (tachycardic) - Respiratory Respiratory: Other (diminished bilat, mild tachypnea on baseline 3L nc) - Back Back: No CVA TTP, No spinal TTP - Derm Derm: Normal color, Warm and dry, No rash - Extremities Extremities: No deformity, No tenderness to palpate, Normal ROM s pain, No edema, No calf tenderness / cord - Neuro Neuro: Alert and oriented X 3 Eye Opening: Spontaneous Motor: Obeys Commands Verbal: Oriented GCS Score: 15 - Psych Psych: Normal mood, Normal affect Results - Vitals Vitals: Vital Signs - 24 hr 02/12/24 02/12/24 02/12/24 15:48 16:38 17:19 Temperature 36.9 C Heart Rate 123 H 109 H 77 Heart Rate [ Monitoring electrodes] Respiratory 36 H 20 18 Rate Blood Pressure 135/86 H 114/68 Blood Pressure [L arm] O2 Saturation 95 93 If not protocol 2 2 : Oxygen Flow, liters/minute 02/12/24 02/12/24 02/12/24 18:28 18:49 19:30 Temperature 37.4 C 36.8 C Heart Rate 113 H Heart Rate [ 110 H 110 H Monitoring electrodes] Respiratory 17 21 17 Rate Blood Pressure 164/61 H Blood Pressure 151/70 H 165/55 H [L arm] O2 Saturation 98 98 96 If not protocol 2 2 2 : Oxygen Flow, liters/minute 02/12/24 20:40 Temperature Heart Rate 110 H Heart Rate [ Monitoring electrodes] Respiratory 20 Rate Blood Pressure Blood Pressure [L arm] O2 Saturation If not protocol 2 : Oxygen Flow, liters/minute Oxygen O2 Source Nasal cannula Oxygen Flow Rate 2 - EKG (time done) No standard instances EKG releavant findings:: EKG personally interpreted by author of this note. Relevant findings are: Rate: Rate (enter#) (114) Rhythm: Sinus tachycardia Edgar: Normal Intervals: Normal KS QRS: Normal Ischemia: Normal ST segments Computer interpretation: Agree with computer - Labs Labs: Laboratory Tests 02/12/24 02/12/24 02/12/24 16:14 16:14 16:14 WBC 9.1 RBC 2.94 L Hgb 5.8 L* Hct 22.7 L MCV 77.2 L MCH 19.7 L MCHC 25.6 L RDW 19.3 H Plt Count 388 MPV 9.6 Neut # (Auto) 6.5 Lymph # (Auto) 1.3 L Mckean # (Auto) 0.7 Eos # (Auto) 0.5 Baso # (Auto) 0.0 Absolute Nucleated RBC 0.03 Nucleated RBC % 0.3 Manual Slide Review Indicated Platelet Estimate NORMAL (130-450,000) Platelet Morphology NORMAL APPEARANCE RBC Morph Micro Appear 1+ POLYCHROMASIA Sodium 143 Potassium 3.7 Chloride 110 Carbon Dioxide 23 Anion Gap 10.0 BUN 20 Creatinine 0.9 Estimated GFR (MDRD) 62 L Glucose 115 H Lactic Acid Calcium 9.2 Total Bilirubin 0.3 AST 13 ALT 20 Alkaline Phosphatase 102 Troponin I High Sens 10.4 B-Natriuretic Peptide Total Protein 6.8 Albumin 4.2 Globulin 2.6 Albumin/Globulin Ratio 1.6 Lipase 29 Blood Type Antibody Screen Crossmatch IS Only 02/12/24 02/12/24 02/12/24 16:14 16:14 16:38 WBC RBC Hgb Hct MCV MCH MCHC RDW Plt Count MPV Neut # (Auto) Lymph # (Auto) Mckean # (Auto) Eos # (Auto) Baso # (Auto) Absolute Nucleated RBC Nucleated RBC % Manual Slide Review Platelet Estimate Platelet Morphology RBC Morph Micro Appear Sodium Potassium Chloride Carbon Dioxide Anion Gap BUN Creatinine Estimated GFR (MDRD) Glucose Lactic Acid 2.0 Calcium Total Bilirubin AST ALT Alkaline Phosphatase Troponin I High Sens B-Natriuretic Peptide 275 H Total Protein Albumin Globulin Albumin/Globulin Ratio Lipase Blood Type A POSITIVE Antibody Screen NEGATIVE Crossmatch IS Only See Detail - Rads (name of study) No standard instances Relevant Findings:: Final report received PD Medical Decision Making - ED course Complexity details: reviewed old records, reviewed results, re-evaluated patient, considered differential, d/w patient ED course: This is a 68-year-old female with past medical history is as above who presented with increasing shortness of breath over the course of the past 2 weeks, preceded by a viral URI type symptoms. She does have underlying COPD and is on chronic 2 to 3 L nasal cannula, additionally has history of CAD with CABG, and CHF with prior severe anemia requiring multiple transfusions. She was concerned that she may be anemic today as this felt similar to her prior bouts with anemia. Patient has reportedly been worked up extensively on outpatient basis for the anemia and no etiology has ever been found and she denies any acute bleeding, no blood per rectum, no black or dark stools. On arrival here, patient is in mild respiratory distress, mildly tachypneic and has very poor exercise tolerance, becoming dyspneic with even minimal activity. She is diminished but not acutely wheezing, and has not required increased oxygen requirement. We did give her a DuoNeb as well as steroids with improvement in her symptoms, she also received 40 mg of IV Lasix. Her chest x-ray revealed no acute pneumonia or chf, her labs were significant for hemoglobin of 5.8 but otherwise fairly stable, including a troponin of 10, BNP in the 200s. Her EKG showed no acute ischemic changes. Pt is on baseline oxygen and has responded well to duoneb. Patients sx therefore though to be primarily due to anemia with a number of comorbidities. I did discuss potential for admission for transfusion of 2 units as this will take some time however the hospital service would like to have this done in the ER. 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 Will therefore give 2 units here in the ER and reassess, clinical improvement the patient should be able to be discharged home at that time. And also going to treat her for an exacerbation of her COPD as she does have increased dyspnea though no increased oxygen requirement. I have prescribed doxycycline and a course of the prednisone for this. Departure - Departure Clinical Impression: COPD with exacerbation Anemia Qualifiers: Anemia type: unspecified type Qualified Code(s): D64.9 - Anemia, unspecified Condition: Good Prescriptions: predniSONE [Deltasone] 10 mg PO [id number] #42 tab Doxycycline [Vibramycin] 100 mg PO BID #20 tablet Forms: PCP List
--- NOTE | 2024-02-12 16:24 | XRAY Report ---
PROCEDURE: Chest 1V INDICATIONS: CHEST PAIN TECHNIQUE: One view of the chest was acquired. COMPARISON: 08/14/2021. FINDINGS: Surgical changes and devices: Median sternotomy wires. Left chest wall Port-A-Cath Lungs and pleura: No pleural effusions or pneumothorax. Linear atelectasis versus scarring in the le ft mid and lower lung field Lungs are otherwise clear. Mediastinum: Mediastinal contours appear normal. Heart size is enlarged, stable. Bones and chest wall: No suspicious bony lesions. Overlying soft tissues appear unremarkable. IMPRESSION: No acute cardiopulmonary process. Reviewed by: Charlie Shaikh MD on 02/12/2024 4:23 PM PDT Approved by: Charlie Shaikh MD on 02/12/2024 4:23 PM PDT Station ID: [id number]
[2024-02-12 16:27] LABS: BASOPHILS % (AUTO) 0.3 %; EOSINOPHILS # (AUTO) 0.5 10^3/uL (0.0-0.7); EOSINOPHILS % (AUTO) 5.8 %; HCT - HEMATOCRIT 22.7 % (37.0-47.0); LYMPHOCYTES # (AUTO) 1.3 10^3/uL (1.5-3.5); LYMPHOCYTES % (AUTO) 14.2 %; MEAN CORPUSCULAR HEMOGLOBIN 19.7 pg (27.0-31.0); MEAN CORPUSCULAR HGB CONC 25.6 g/dL (32.0-36.0); MEAN CORPUSCULAR VOLUME 77.2 fL (81.0-99.0); MEAN PLATELET VOLUME 9.6 fL (7.9-10.8); MONOCYTES # (AUTO) 0.7 10^3/uL (0.0-1.0); MONOCYTES % (AUTO) 7.4 %; NEUTROPHILS # (AUTO) 6.5 10^3/uL (1.5-6.6); NEUTROPHILS % (AUTO) 71.8 %; NRBC ABSOLUTE COUNT (AUTO) 0.03 x10^3/uL; NUCLEATED RED BLOOD CELLS AUTO 0.3 /100WBC; PLT - PLATELET COUNT 388 10^3/uL (130-450); RED BLOOD COUNT 2.94 10^6/uL (4.20-5.40); RED CELL DISTRIBUTION WIDTH 19.3 % (12.0-15.0); WHITE BLOOD COUNT 9.1 x10^3/uL (4.8-10.8)
[2024-02-12 16:30] LABS: HGB - HEMOGLOBIN 5.8 g/dL (12.0-16.0)
[2024-02-12] MEDS: FUROSEMIDE 40 MG/4 ML VIAL IVP STA (16:33)
[2024-02-12] MEDS: IPRATROPIUM/ALBUTEROL 3 ML NEB INH STA ×2 (16:37→20:40)
[2024-02-12 17:01] LABS: PLATELET ESTIMATE, MANUAL NORMAL (130-450,000) (NORMAL); PLATELET MORPHOLOGY NORMAL APPEARANCE (NORMAL); SLIDE REVIEW? Indicated
[2024-02-12 17:12] LABS: ALBUMIN 4.2 g/dL (3.2-5.5); ALBUMIN/GLOBULIN RATIO 1.6 (1.0-2.2); BILIRUBIN,TOTAL 0.3 mg/dL (0.2-1.0); CALCIUM 9.2 mg/dL (8.5-10.3); CREATININE 0.9 mg/dL (0.6-1.3); POTASSIUM 3.7 mmol/L (3.5-4.5); TOTAL PROTEIN 6.8 g/dL (6.4-8.9)
[2024-02-12] MEDS: FUROSEMIDE 20 MG/2 ML VIAL IVP PRN (21:42)
[2024-02-12] MEDS: methylPREDNISolone SUCCINATE 125 MG/2 ML VIAL IVP STA (22:18)
--- NOTE | 2024-02-12 22:43 | ED Physician Documentation ---
ED Addendum - Addendum Addendum: 02/12/24 22:42 Signout from nurse practitioner at 10 PM. Briefly she has a history of transfusion dependence and was here for shortness of breath and found to have a hemoglobin of 5.8 with microcytic indices. Plan at signout was to cautiously transfuse her given her history of CHF and then likely discharge. Nurse approached me at approximately 10:35 PM. She developed some severe right upper quadrant pain about 20 minutes into the second unit of transfusion. I assessed the patient at the bedside. She looks uncomfortable, clutching her right abdomen and is tachycardic. Patient has had many transfusions in the past and states she has never had a reaction like this and I agreed that I do not think it is a reaction per se. On examination she is tachycardic and tachypneic, her lungs are relatively clear though and she does have significant tenderness in the right upper abdomen. The nurse had stopped the transfusion, but I do not think this is a transfusion effect. Will perform CT angiography of the chest and CT abdomen and pelvis. Patient agreeable to a dose of morphine as she looks quite uncomfortable. Note that she has a listed allergy to Dilaudid/hydromorphone but has had morphine in the past without issue. Care to Dr. Engel at 11 PM shift change pending the above.
[2024-02-12] MEDS: MORPHINE 2 MG/ML CARPUJECT IVP STA (22:59)
[2024-02-12] MEDS ORDERED: iohexoL-300 100 ML VIAL ONE (23:43)
[2024-02-13] MEDS: MORPHINE 2 MG/ML CARPUJECT IVP STA ×2 (01:39→02:31)
[2024-02-13] MEDS: iohexoL-300 100 ML VIAL IVP ONE (01:52)
--- NOTE | 2024-02-13 02:00 | CT Report ---
PROCEDURE: Angio Chest INDICATIONS: dyspnea, pe protocol CONTRAST: 100 ML OMNI 300 TECHNIQUE: After the administration of intravenous contrast, 2 mm axial images were acquired from the pulmonary apices to the posterior costophrenic angles during the arterial phase. In addition, 1 mm lung kernel and 5 mm soft tissue kernel reconstructions were performed. 3-dimensional coronal oblique maximum int ensity projection (MIP) reformats, 8 mm axial MIP, and 5 mm coronal and sagittal MPR reformats were t hen performed through the thorax. For radiation dose reduction, the following was used: automated exp osure control, adjustment of mA and/or kV according to patient size. COMPARISON: Chest radiograph dated 02/12/2024, 08/14/[address] of chest dated 08/07/2016. FINDINGS: Image quality: Excellent. Large vessels: No filling defects within the opacified pulmonary arteries, accounting for motion and contrast timing. No evidence of acute aortic syndrome or aortic aneurysm. Lungs and pleura: Dependent atelectasis in posterior and lateral periphery of bilateral lung clifford a re seen. No consolidation. No pleural effusions. No pneumothorax. No suspicious pulmonary nodules wh ich require follow up. Mediastinum: Heart size is mildly enlarged. No pericardial effusion. No large vessel abnormality. No mediastinal adenopathy by size criteria. Chest wall and lower neck: Thyroid is unremarkable. No axillary or supraclavicular adenopathy by size . Median sternotomy wires and surgical clips are seen. Postsurgical changes are noted in right breast . Bones: No aggressive osseous abnormality. Old healed right posterior eighth and ninth rib fractures a re seen. Upper Abdomen: Unremarkable. IMPRESSION: 1. No pulmonary embolus. No thoracic aortic aneurysm or gross dissection. 2. Mild cardiomegaly, no pericardial effusion. No mediastinal or hilar lymphadenopathy. 3. Scattered atelectasis in posterior lateral periphery of bilateral lung clifford. No focal infiltrate , pleural effusion or pneumothorax. Reviewed by: Epifanio Rueda MD on 02/13/2024 1:59 AM PDT Approved by: Epifanio Rueda MD on 02/13/2024 1:59 AM PDT Station ID: [id number]
--- NOTE | 2024-02-13 02:06 | CT Report ---
PROCEDURE: Abdomen/Pelvis W INDICATIONS: abd pain iv only CONTRAST: 100 ML OMNI 300 TECHNIQUE: After the administration of intravenous contrast, a CT scan of the abdomen and pelvis was performed. Images were recorded and evaluated at appropriate window settings. Reformats: coronal and sagittal. F or radiation dose reduction, the following was used: automated exposure control, adjustment of mA and /or kV according to patient size. COMPARISON: None. FINDINGS: Image quality: Diagnostic. Lower chest: Bibasilar dependent atelectasis are seen. Heart size is enlarged, cardiac effusion. Liver: No solid mass. Gallbladder: Cholelithiasis without wall thickening. Biliary tree: No intrahepatic or extrahepatic dilation, accounting for age. Spleen: No splenomegaly. Pancreas: No pancreatic ductal dilation. Adrenals: No adrenal nodule. Kidneys and ureters: No hydronephrosis. No renal cystic lesion which requires follow up. No solid mas s. Stomach, bowel and peritoneum: There is no bowel obstruction. No gastric or small bowel wall thickeni ng. Sigmoid diverticulosis is seen. Questionable wall thickening and pericolonic fat stranding in lef t lower quadrant involving mid sigmoid colon is seen series 4 image 125 and series 2 image 107. No ab scess collection. No free fluid of free air. Lymph nodes: No central or retroperitoneal adenopathy. Vessels: No infrarenal aortic aneurysm. Patent portal vein. PELVIS Reproductive organs: Unremarkable. Bladder: No abnormal wall thickening, accounting for underdistention. Pelvic lymph nodes: No pelvic adenopathy by size criteria. Bones: No aggressive osseous abnormality. Degenerative disc disease throughout lumbar spine is seen. Other: No significant ventral or inguinal hernia. IMPRESSION: 1. Finding may represent very mild acute diverticulitis involving mid sigmoid colon in left lower chichi drant abdomen. No other area of abnormal bowel wall thickening. Mild to moderate constipation. No steven e fluid of free air. No abscess collection. 2. Cholelithiasis without CT evidence of acute cholecystitis. Reviewed by: Epifanio Jenkins MD on 02/13/2024 2:05 AM PDT Approved by: Epifanio Jenkins MD on 02/13/2024 2:05 AM PDT Station ID: [id number]
[2024-02-13] MEDS: metroNIDAZOLE 250 MG TABLET PO STA (03:55)
[2024-02-13] MEDS: SULFAMETH/TRIMETH DS 800/160 MG TABLET PO STA (03:55)
[2024-02-13 03:58] LABS: HCT - HEMATOCRIT 29.8 % (37.0-47.0); HGB - HEMOGLOBIN 8.5 g/dL (12.0-16.0)
--- NOTE | 2024-02-13 04:32 | ED Physician Documentation ---
ED Addendum - Addendum Addendum: 02/13/24 05:38 I received signout/turnover of care on this patient from Dr. Bolaños who, in turn, received signout from LUCAS Escoto; please see LUCAS Escoto's note for complete H+P. In brief, patient presented for chief complaint of shortness of breath. Past medical history includes COPD as well as chronic anemia of unknown etiology despite extensive workup. Patient was initially treated as a COPD exacerbation, but was found on blood work to have hemoglobin of 5.8. 2 units packed red blood cells ordered for transfusion, and patient was in process of receiving her second unit of PRBCs when she developed left upper quadrant abdominal pain. At the time of turnover of care, a CTA chest and CT A/P with IV contrast are pending. There are no concerning or diagnostic findings on CTA chest, including no evidence of pulmonary embolism nor thoracic aortic aneurysm or gross dissection. CT A/P Has findings consistent with "very mild acute diverticulitis involving mid sigmoid colon and left lower quadrant abdomen" (per radiologist's interpretation).No free fluid nor abscess seen. Incidental note of cholelithiasis (no evidence on CT of cholecystitis and patient's symptoms are strictly on the left side of the abdomen. I reevaluated this patient and discussed results with her. On my shift, she is given a second dose of 4 mg IV morphine and patient reports excellent pain relief with this intervention. She is in no respiratory distress during my shift with multiple reevaluations. Regarding the finding of mild diverticulitis, I discussed options for treatment patient, specifically whether or not to treat with antibiotics. I recommended antibiotics to lower risk of complications of diverticulitis such as abscess, perforation; patient agrees with this approach. Unfortunately, she says she cannot take penicillins due to allergic reaction (hives). She says she would prefer not to be given Cipro/Flagyl , as she felt "brain fog" (per patient) when on this regimen in the past for diverticulitis. While it would involve prescribing Flagyl, a reasonable alternative regimen is Bactrim and Flagyl, and patient is agreeable to this regimen. She is given the first dose of both of these antibiotics p.o. in the ED, and I am providing a 1-week prescription for these antibiotics. Prior to discharge, a repeat H&H was undertaken, and her hemoglobin is 8.5 on this redraw. Lastly, CUTTER HELPER Kerri had intended to prescribe a 10-day tapering course of prednisone for presumed COPD exacerbation, as well as doxycycline (her note indicates this was also for COPD exacerbation). At the time of discharge, the patient is specifically asking about the prednisone, very much interested in the prednisone based on her previous COPD exacerbations and how well they respond to short courses of prednisone. Thus, I also electronically submitted the prescription for prednisone to patient's pharmacy of choice ([facility] in [place]). Patient says she has no h/o GIB nor PUD. Rather than put the patient on 3 different antibiotics, I am eliminating doxycycline from the prescriptions. Without overt evidence (such as on chest x- ray or CT scan) of pneumonia, specific coverage for respiratory infection is not indicated (and Bactrim should provide some degree of coverage along those lines in any event). 02/13/24 05:51
[2024-02-13 05:06] VITALS: BP 134/87; O2SAT 97
== END 2024-02-13 04:57 | disposition home or self-care (01) ==
LOC: EDUNIT# → ED 15:41
DX: J44.9 Chronic obstructive pulmonary disease, unspecified (principal); Z99.81 Dependence on supplemental oxygen; D64.9 Anemia, unspecified; F17.200 Nicotine dependence, unspecified, uncomplicated; Z66 Do not resuscitate
CPT/HCPCS: 36415; 36430; 71045; 71275; 74177; 80053; 83605; 83690; 83880; 84484; 85014; 85018; 85025; 86850; 86900; 86901; 86920; 87040; 93005; 94640; 94664; 96374; 96375; 96376; 99285; A9270; P9016; Q9967

== ENCOUNTER 2024-12-16 12:38 | Inpatient (IN) ==
--- NOTE | 2024-12-16 12:59 | ED Physician Documentation ---
History of Present Illness Stated complaint Stated Complaint: BACK PX Chief complaint Chief Complaint: Back Pain Additonal information Additional information: 69-year-old female with stage IIIb breast cancer currently in between treatments has already completed 28 rounds of radiation 6 rounds of chemo was diagnosed about 1.5 years ago comes in today for severe lower back pain mostly on the right side rating down to her hips and right leg appears that she woke up in excruciating pain that Tylenol and ibuprofen did not help with. No nausea or vomiting. Patient also worried about anemia she was here about 2 to 3 weeks ago and her hemoglobin is found to be 6.2 and was hoping for labs to be reevaluated because she only got 1 unit of RBCs. No nausea or vomiting no fevers or chills no urinary urgency or frequency. Meds/Allgy Home Medications Ambulatory Orders Medication Instructions Recorded Confirmed albuterol sulfate 90 mcg/actuation 2 puff inhalation Q4H PRN Wheezing 08/09/16 03/07/21 aerosol inhaler (Ventolin HFA) ##1 citalopram 10 mg tablet 10 mg PO DAILY 03/16/18 03/07/21 acetaminophen 500 mg tablet 1,000 mg PO TID 03/07/21 03/07/21 (Acetaminophen Extra Strength) amiodarone 200 mg tablet 200 mg PO DAILY 03/07/21 03/07/21 aspirin 81 mg chewable tablet 162 mg PO DAILY 03/07/21 03/07/21 atenolol 25 mg tablet 25 mg PO DAILY 03/07/21 03/07/21 atorvastatin 40 mg tablet 40 mg PO QPM 03/07/21 03/07/21 budesonide-formoterol HFA 160 2 puff inhalation BID 03/07/21 03/07/21 mcg-4.5 mcg/actuation aerosol inhaler (Symbicort) dextromethorphan-guaifenesin ER 60 1 tab PO BID 03/07/21 03/07/21 mg-1,200 mg tab,extend release,12hr morphine 15 mg tablet,extended 15 mg PO TID 03/07/21 03/07/21 release (MS Contin) multivitamin with folic acid 400 1 tab PO DAILY 03/07/21 03/07/21 mcg tablet (Thera) nortriptyline 10 mg capsule 10 mg PO QPM 03/07/21 03/07/21 oxycodone 5 mg tablet 2.5 - 10 mg PO Q4H PRN Pain 03/07/21 03/07/21 pantoprazole 40 mg tablet,delayed 40 mg PO BIDAC 03/07/21 03/07/21 release tiotropium bromide 18 mcg capsule 1 puff inhalation DAILY 03/07/21 03/07/21 with inhalation device (Spiriva with HandiHaler) ferrous sulfate 325 mg (65 mg 325 mg PO DAILY #30 tabs 03/12/21 iron) tablet furosemide 40 mg tablet 40 mg PO DAILY #15 tabs 03/12/21 prednisone 10 mg tablet 10 mg PO [id number] #42 tabs 02/12/24 metronidazole 500 mg tablet 500 mg PO TID 7 days #21 tabs 02/13/24 sulfamethoxazole 800 1 ea PO BID #14 tabs 02/13/24 mg-trimethoprim 160 mg tablet lidocaine HCl 4 % topical patch 1 patch topical DAILY PRN pain #30 11/26/24 ea Allergies Allergies Allergy/AdvReac Type Severity Reaction Status Date / Time metoprolol AdvReac Intermediate Cough Verified 12/16/24 12:43 hydromorphone (From Dilaudid) AdvReac Emesis Verified 12/16/24 12:43 Penicillins AdvReac Hives Verified 12/16/24 12:43 PFSH Active Problems All Active Problems (Updated 12/16/24 @ 17:39 by Kelsea Barnhart DNP) Back pain (Acute) Neck pain on left side (Acute) Left-sided chest pain (Acute) Hemoptysis (Acute) Epistaxis (Acute) Chest pain (Acute) Congestive heart failure (Chronic) Anemia (Chronic) Coronary artery disease (Chronic) Physical deconditioning (Chronic) Anxiety (Chronic) Hypertension (Chronic) COPD without exacerbation (Chronic) Social History Social History Smoking Status: Current every day smoker If you are a former smoker, when did you quit? (Date/Year): 2012 Number of Years Smoked: 48 How many cigarettes a day do you smoke? (20 cigarettes=1 Pk): 20 Do you dip or chew tobacco?: No Patient requests smoking cessation consult: No Initiate information on smoking cessation: No Living arrangement: At home Living Condition: With family Relationship: Child Do you feel safe in your home environment?: Yes Suffered physical, verbal, emotional, or financial abuse?: No History of Abuse: No POLST Patient has POLST: No POLST Status: DNR (When I describe resuscitation, chest compressions, cardioversion, intubation she does not want that done. However, she does want all measures of treatment to be provided to her up until that point of cardiac arrest or respiratory failure) Exam Exam Vital Signs: Vital Signs x48h Temp Pulse Pulse Resp BP BP Pulse Ox 12/16/24 16:47 36.2 C L 91 18 115/70 97 12/16/24 16:31 35.7 C L 90 18 144/80 H 97 12/16/24 12:43 36.8 C 93 18 147/77 H 96 O2 Flow Rate 12/16/24 16:47 3 12/16/24 16:31 3 12/16/24 12:43 3 Constitutional normal general appearance, no apparent distress, abnormal body habitus (obese), no limitations and alert HENMT normocephalic and head/scalp atraumatic Eyes PERRL Chest inspection of chest normal and palpation of chest normal Respiratory breath sounds equal bilaterally, normal respiratory effort, clear to auscultation bilaterally and no wheezes Cardiovascular normal heart rate noted and regular rhythm noted Skin skin color abnormal (pale) Results Vitals Vitals: Vital Signs - 24 hr 12/16/24 12:43 12/16/24 14:05 12/16/24 14:37 Temperature 36.8 C Temperature Source Tympanic Pulse Rate 93 Pulse Rate [Monitoring electrodes] Respiratory Rate 18 Blood Pressure 147/77 H Blood Pressure [Left Radial artery] O2 Saturation 96 O2 Source Nasal cannula If not protocol: Oxygen Flow, liters/minute 3 Sedation scale Pain Intensity 7 9 7 12/16/24 14:44 12/16/24 15:15 12/16/24 16:31 Temperature 35.7 C L Temperature Source Temporal Artery Scan Pulse Rate Pulse Rate [Monitoring electrodes] 90 Respiratory Rate 18 Blood Pressure Blood Pressure [Left Radial artery] 144/80 H O2 Saturation 97 O2 Source Nasal cannula If not protocol: Oxygen Flow, liters/minute 3 Sedation scale 0-Fully awake Pain Intensity 8 5 12/16/24 16:47 12/16/24 17:36 Temperature 36.2 C L Temperature Source Temporal Artery Scan Pulse Rate Pulse Rate [Monitoring electrodes] 91 Respiratory Rate 18 Blood Pressure Blood Pressure [Left Radial artery] 115/70 O2 Saturation 97 O2 Source Nasal cannula If not protocol: Oxygen Flow, liters/minute 3 Sedation scale 0-Fully awake Pain Intensity 7 Oxygen O2 Source Nasal cannula Labs Labs: Microbiology 12/16/24 17:40 Occult Blood - Final Stool Laboratory Tests 12/16/24 12/16/24 12/16/24 13:58 13:58 13:58 WBC 10.2 RBC 2.39 L Hgb 5.1 L* Hct 19.2 L* MCV 80.3 L MCH 21.3 L MCHC 26.6 L RDW 21.1 H Plt Count 294 MPV 9.8 Neut # (Auto) 8.4 H Lymph # (Auto) 0.8 L [place] # (Auto) 0.7 Eos # (Auto) 0.3 Baso # (Auto) 0.0 Absolute Nucleated RBC 0.09 Nucleated RBC % 0.9 Manual Slide Review Indicated Platelet Estimate NORMAL (130-450,000) Platelet Morphology NORMAL APPEARANCE RBC Morph Micro Appear 3+ ANISOCYTOSIS 1+ STOMATOCYTES 4+ HYPOCHROMASIA Sodium Potassium Chloride Carbon Dioxide Anion Gap BUN Creatinine Estimated GFR (MDRD) Glucose Calcium Total Bilirubin AST ALT Alkaline Phosphatase Total Protein Albumin Globulin Albumin/Globulin Ratio Urine Color Urine Clarity Urine pH Ur Specific [place] Urine Protein Urine Glucose (UA) Urine Ketones Urine Occult Blood Urine Nitrite Urine Bilirubin Urine Urobilinogen Ur Leukocyte Esterase Ur Microscopic Review Urine Culture Comments Blood Type Antibody Screen Crossmatch IS Only 12/16/24 12/16/24 12/16/24 13:58 14:26 15:13 WBC RBC Hgb Hct MCV MCH MCHC RDW Plt Count MPV Neut # (Auto) Lymph # (Auto) [place] # (Auto) Eos # (Auto) Baso # (Auto) Absolute Nucleated RBC Nucleated RBC % Manual Slide Review Platelet Estimate Platelet Morphology RBC Morph Micro Appear 1+ POLYCHROMASIA Sodium 137 Potassium 4.0 Chloride 105 Carbon Dioxide 24 Anion Gap 8.0 BUN 22 H Creatinine 0.9 Estimated GFR (MDRD) 62 L Glucose 108 H Calcium 8.6 Total Bilirubin 0.4 AST 14 ALT 18 Alkaline Phosphatase 83 Total Protein 7.0 Albumin 3.5 Globulin 3.5 Albumin/Globulin Ratio 1.0 Urine Color YELLOW Urine Clarity CLEAR Urine pH 5.5 Ur Specific [place] 1.015 Urine Protein NEGATIVE Urine Glucose (UA) NEGATIVE Urine Ketones NEGATIVE Urine Occult Blood NEGATIVE Urine Nitrite NEGATIVE Urine Bilirubin NEGATIVE Urine Urobilinogen 0.2 (NORMAL) Ur Leukocyte Esterase NEGATIVE Ur Microscopic Review NOT INDICATED Urine Culture Comments NOT INDICATED Blood Type A POSITIVE Antibody Screen NEGATIVE Crossmatch IS Only See Detail Rads (name of study) CT lumbar spine: Relevant Findings:: Final report received and EMP independent interpretation of test Interpretation: IMPRESSION: Multilevel degenerative changes of the lumbar spine as described above with levoscoliotic curvature. Probable moderate central canal stenosis at L3-L4 and moderate foraminal stenosis of the lower lumbar spine. MRI can be obtained for better evaluation of stenosis. PD Medical Decision Making ED course Complexity details: reviewed results, re-evaluated patient, d/w patient and d/w senior science consultant ED course: 69-year-old female presents emergency department for back pain And weakness. Patient says her main concern today is that she is worried about anemia she has been having increased weakness and malaise. Labs are complete for further evaluation she does have significant anemia, hemoglobin today is 5.1, last hemoglobin was 6.2 on 11/26 at that visit she did get 1 unit of RBCs. Hematocrit today 19.2. CMP also complete for further evaluation no significant abnormalities BUN slightly elevated at 22 normal urinalysis. Patient says that last time she was here she did have a positive guaiac but she has had multiple colonoscopies which were found to be all benign for any signs of bleeding. Today her guaiac was also found to be negative. We have no known source of where this bleeding is coming from to cause this anemia. Given that patient will need multiple units of RBCs and given that she had rebound anemia after already receiving 1 unit of RBCs during last visit I think that patient needs to be admitted for trending of labs and further evaluation. Hospitalist have graciously agreed to admit the patient and patient is agreeable to stay. CT of the lumbar was also complete for further evaluation given that she is having significant low back pain. The CT shows multilevel degenerative changes of the lumbar spine with a levoscoliotic curvature. Probable moderate central canal stenosis L3-L4 with moderate foraminal stenosis of the lower lumbar spine. Hydromorphone was given to the patient to help with pain control which did significantly be symptoms. Discharge Plan Discharge Patient Disposition: ED Place in Observation Condition: Stable Clinical Impression: Anemia, Back pain
--- OUTSIDE RECORDS SUMMARY | 2024-12-16 13:29 | EXTERNAL MEDICAL SUMMARY RPT | Continuity of Care Document ---
Author Organization [facility] Address [address] [place] [id number] Phone Problems date description facility 2024-11-26 20:06 Cervicalgia [facility] 2024-11-26 20:06 Chest pain, unspecified [facility] 2024-11-28 10:17 Cervicalgia [facility] 2024-11-28 10:17 Chest pain, unspecified [facility] 2024-11-29 10:55 Cervicalgia [facility] 2024-11-29 10:55 Shortness of breath [facility] 2024-11-29 10:55 Chest pain, unspecified [facility] 2024-12-07 11:54 Cervicalgia [facility] 2024-12-07 11:54 Shortness of breath [facility] 2024-12-07 11:54 Chest pain, unspecified [facility] Results/Labs test date facility value unit notes Result panel 1 BASOPHILS # (AUTO) 2024-11-26 11:57 [facility] 0.0 10 3/ul (missing) NRBC ABSOLUTE COUNT (AUTO) 2024-11-26 11:57 [facility] 0.09 x10 3/ul (missing) BILIRUBIN,TOTAL 2024-11-26 11:57 [facility] 0.3 mg /dl As of March 2023 testing method has changed, this may include reference ranges. EOSINOPHILS # (AUTO) 2024-11-26 11:57 [facility] 0.5 10 3/ul (missing) CREATININE 2024-11-26 11:57 [facility] 0.7 mg/dl As of March 2023 testing method has changed, this may include reference ranges. NUCLEATED RED BLOOD CELLS AUTO 2024-11-26 11:57 [facility] 0.8 /100wbc (missing) MONOCYTES # (AUTO) 2024-11-26 11:57 [facility] 0.8 10 3/ul (missing) ALBUMIN/GLOBULIN RATIO 2024-11-26 11:57 [facility] 1.1 (missing) (missing) LYMPHOCY[facility] # ([facility] 1.2 10 3/ul (missing) CHLORIDE 2024-11-26 11:[facility] 103 mmol/l As of March 2023 testing method has changed, this may include reference ranges. WHITE BLOOD COUNT 2024-11-26 11:57 [facility] 11.6 x10 3/ul (missing) AST ASPARTATE AMINOTRANSFERASE 2024-11-26 11:57 [facility] 13 iu/l As of March 2023 testing method has changed, this may include reference ranges. GLUCOSE 2024-11-26 11:57 [facility] 137 mg/dl As of March 2023 testing method has changed, this may include reference ranges. SODIUM 2024-11-26 11:57 [facility] 138 mmol/l As of March 2023 testing method has changed, this may include reference ranges. ALT ALANINE AMINOTRANSFERASE 2024-11-26 11:57 [facility] 17 iu/l As of March 2023 testing method has changed, this may include reference ranges. BUN - BLOOD UREA NITROGEN 2024-11-26 11:57 [facility] 17 mg/dl As of Mar testing method has changed, this may include reference ranges. RED CELL DISTRIBUTION WIDTH 2024-11-26 11:57 [facility] 18.6 % (missing) RED BLOOD COUNT 2024-11-26 11:57 [facility] 2.76 10 6/ul (missing) MEAN CORPUSCULAR HEMOGLOBIN 2024-11-26 11:57 [facility] 22.5 pg (missing) HCT - HEMATOCRIT 2024-11-26 11:57 [facility] 22.7 % (missing) CARBON DIOXIDE - CO2 2024-11-26 11:57 [facility] 27 mmol/l As of March 2023 testing method has changed, this may include reference ranges. MEAN CORPUSCULAR HGB CONC 2024-11-26 11:57 [facility] 27.3 g/dl (missing) GLOBULIN 2024-11-26 11:57 [facility] 3.4 g/dl (missing) POTASSIUM 2024-11-26 11:57 [facility] 3.4 mmol/l As of March 2023 testing method has changed, this may include reference ranges. ALBUMIN 2024-11-26 11:57 [facility] 3.8 g/dl As of March 2023 testing method has changed, this may include reference ranges. PLT - PLATELET COUNT 2024-11-26 11:57 [facility] 408 10 3/ul (missing) HGB - HEMOGLOBIN 2024-11-26 11:57 [facility] 6.2 g /dl Called to [facility] RN ED by Nicho Coe MLS([facility]) at 1211 11/26/24. Read back(Y/N)?Y LIPASE 2024-11-26 11:57 [facility] 60 u/l As of March 2023 testing method has changed, this may include reference ranges. TOTAL PROTEIN 2024-11-26 11:57 [facility] 7.2 g/dl As of March 2023 testing method has changed, this may include reference ranges. ANION GAP 2024-11-26 11:57 [facility] 8.0 (missing ) (missing) GFR - MDRD 2024-11-26 11:57 [facility] 82 (justyn caal) Social History date description facility
[2024-12-16 14:04] LABS: BASOPHILS % (AUTO) 0.1 %; EOSINOPHILS # (AUTO) 0.3 10^3/uL (0.0-0.7); EOSINOPHILS % (AUTO) 2.4 %; LYMPHOCYTES # (AUTO) 0.8 10^3/uL (1.5-3.5); LYMPHOCYTES % (AUTO) 7.8 %; MEAN CORPUSCULAR HEMOGLOBIN 21.3 pg (27.0-31.0); MEAN CORPUSCULAR HGB CONC 26.6 g/dL (32.0-36.0); MEAN CORPUSCULAR VOLUME 80.3 fL (81.0-99.0); MEAN PLATELET VOLUME 9.8 fL (7.9-10.8); MONOCYTES # (AUTO) 0.7 10^3/uL (0.0-1.0); MONOCYTES % (AUTO) 6.7 %; NEUTROPHILS # (AUTO) 8.4 10^3/uL (1.5-6.6); NEUTROPHILS % (AUTO) 82.5 %; NRBC ABSOLUTE COUNT (AUTO) 0.09 x10^3/uL; NUCLEATED RED BLOOD CELLS AUTO 0.9 /100WBC; PLT - PLATELET COUNT 294 10^3/uL (130-450); RED BLOOD COUNT 2.39 10^6/uL (4.20-5.40); RED CELL DISTRIBUTION WIDTH 21.1 % (12.0-15.0); WHITE BLOOD COUNT 10.2 x10^3/uL (4.8-10.8)
[2024-12-16] MEDS: oxyCODONE 5 MG TABLET PO STA (14:05)
[2024-12-16 14:11] LABS: HCT - HEMATOCRIT 19.2 % (37.0-47.0); HGB - HEMOGLOBIN 5.1 g/dL (12.0-16.0)
[2024-12-16 14:12] LABS: SLIDE REVIEW? Indicated
[2024-12-16 14:17] LABS: ALBUMIN 3.5 g/dL (3.2-5.5); BILIRUBIN,TOTAL 0.4 mg/dL (0.2-1.0); CALCIUM 8.6 mg/dL (8.5-10.3); CREATININE 0.9 mg/dL (0.6-1.3)
[2024-12-16 14:38] LABS: PLATELET ESTIMATE, MANUAL NORMAL (130-450,000) (NORMAL); PLATELET MORPHOLOGY NORMAL APPEARANCE (NORMAL)
[2024-12-16] MEDS: HYDROmorphone 0.5 MG/0.5 ML SYRINGE IVP STA ×2 (14:44→17:36)
[2024-12-16 15:23] LABS: BILIRUBIN,URINE NEGATIVE (NEGATIVE); GLUCOSE, URINE (UA) NEGATIVE (NEGATIVE); KETONES,URINE (UA) NEGATIVE (NEGATIVE); LEUKOCYTE ESTERASE, URINE NEGATIVE (NEGATIVE); NITRITE,URINE NEGATIVE (NEGATIVE); OCCULT BLOOD,URINE NEGATIVE (NEGATIVE); PH,URINE 5.5 PH (5.0-7.5); PROTEIN,URINE NEGATIVE (NEGATIVE); UROBILINOGEN,URINE 0.2 (NORMAL) E.U./dL (NORMAL)
[2024-12-16 15:37] LABS: CLARITY,URINE CLEAR (CLEAR)
--- NOTE | 2024-12-16 15:52 | CT Report ---
PROCEDURE: CT Lumbar Spine WO INDICATIONS: lumbar pain radiating to right, TECHNIQUE: Noncontrast 3 mm thick sections acquired from the T12 level to the sacrum. Sagittal and coronal refo rmats were constructed. For radiation dose reduction, the following was used: automated exposure co ntrol, adjustment of mA and/or kV according to patient size. COMPARISON: None. FINDINGS: Image quality: Excellent. Bones: Levoscoliotic curvature. Multilevel degenerative changes most pronounced at L3-4 with disc hei ght loss, vacuum disc phenomena, osteophytosis and facet arthropathy. Probable moderate central canal stenosis at L3-L4. No significant central canal stenosis at other levels. Multilevel moderate neural foraminal stenosis of the lower lumbar spine. No acute vertebral body compression fractures. No chris picious lytic or blastic bony lesions. No pars defects. Soft tissues: No retroperitoneal masses or hematomas. Visualized aorta is normal in caliber. Ather osclerotic vascular calcifications. Diverticulosis within the visualized sigmoid colon. IMPRESSION: Multilevel degenerative changes of the lumbar spine as described above with levoscoliotic curvature. Probable moderate central canal stenosis at L3-L4 and moderate foraminal stenosis of the lower lumbar spine. MRI can be obtained for better evaluation of stenosis. Reviewed by: Charlie Shaikh MD on 12/16/2024 3:51 PM PDT Approved by: Charlie Shaikh MD on 12/16/2024 3:51 PM PDT Station ID: [id number]
[2024-12-16] MEDS: ONDANSETRON 4 MG/2 ML VIAL IVP STA (16:21)
--- NOTE | 2024-12-16 17:46 | HISTORY & PHYSICAL EXAMINATION ---
Chief Complaint Chief Complaint Chief Complaint: weak and tired History of Present Illness Admitted From Admitted From:: home History Obtained From Records Reviewed: last ED visit. History obtained from: patient History of Present Illness HPI Comment/Other: Represents to the ED for the 2nd time in several weeks for feeling weak and tired. She has a history of anemia, and remote hx of NSAID induced GI bleed, denies any current melena or BRBPR. She last had upper and lower endoscopy in April of last year,and has had these procedures multiple times, they have always been negative. She has also been seen by hematology, and this does not seem to be a bone marrow problem . this am, also woke up with right sided back pain, with radiation to her right thigh. she has not had any bowel or bladder incontinence, just pain. no fever, no dysuria. no recent procedures (ie CHAPO). has been on chronic narcotics in the past, but not currently. Lives with her daughter and grandson. 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 she has a history of breast cancer, and is currently only on hormone lizzie, finished chemo some time ago. Meds/Allgy Home Medications Ambulatory Orders Medication Instructions Recorded Confirmed albuterol sulfate 90 mcg/actuation 2 puff inhalation Q4H PRN Wheezing 08/09/16 03/07/21 aerosol inhaler (Ventolin HFA) ##1 citalopram 10 mg tablet 10 mg PO DAILY 03/16/18 03/07/21 acetaminophen 500 mg tablet 1,000 mg PO TID 03/07/21 03/07/21 (Acetaminophen Extra Strength) amiodarone 200 mg tablet 200 mg PO DAILY 03/07/21 03/07/21 aspirin 81 mg chewable tablet 162 mg PO DAILY 03/07/21 03/07/21 atenolol 25 mg tablet 25 mg PO DAILY 03/07/21 03/07/21 atorvastatin 40 mg tablet 40 mg PO QPM 03/07/21 03/07/21 budesonide-formoterol HFA 160 2 puff inhalation BID 03/07/21 03/07/21 mcg-4.5 mcg/actuation aerosol inhaler (Symbicort) dextromethorphan-guaifenesin ER 60 1 tab PO BID 03/07/21 03/07/21 mg-1,200 mg tab,extend release,12hr morphine 15 mg tablet,extended 15 mg PO TID 03/07/21 03/07/21 release (MS Contin) multivitamin with folic acid 400 1 tab PO DAILY 03/07/21 03/07/21 mcg tablet (Thera) nortriptyline 10 mg capsule 10 mg PO QPM 03/07/21 03/07/21 oxycodone 5 mg tablet 2.5 - 10 mg PO Q4H PRN Pain 03/07/21 03/07/21 pantoprazole 40 mg tablet,delayed 40 mg PO BIDAC 03/07/21 03/07/21 release tiotropium bromide 18 mcg capsule 1 puff inhalation DAILY 03/07/21 03/07/21 with inhalation device (Spiriva with HandiHaler) ferrous sulfate 325 mg (65 mg 325 mg PO DAILY #30 tabs 03/12/21 iron) tablet furosemide 40 mg tablet 40 mg PO DAILY #15 tabs 03/12/21 prednisone 10 mg tablet 10 mg PO [id number] #42 tabs 02/12/24 metronidazole 500 mg tablet 500 mg PO TID 7 days #21 tabs 02/13/24 sulfamethoxazole 800 1 ea PO BID #14 tabs 02/13/24 mg-trimethoprim 160 mg tablet lidocaine HCl 4 % topical patch 1 patch topical DAILY PRN pain #30 11/26/24 ea Allergies Allergies Allergy/AdvReac Type Severity Reaction Status Date / Time metoprolol AdvReac Intermediate Cough Verified 12/16/24 12:43 hydromorphone (From Dilaudid) AdvReac Emesis Verified 12/16/24 12:43 Penicillins AdvReac Hives Verified 12/16/24 12:43 PFSH Active Problems All Active Problems (Updated 12/16/24 @ 20:24 by MICHAELA Car) Symptomatic anemia (Acute) Back pain (Acute) Neck pain on left side (Acute) Left-sided chest pain (Acute) Hemoptysis (Acute) Epistaxis (Acute) Chest pain (Acute) Congestive heart failure (Chronic) Anemia (Chronic) Coronary artery disease (Chronic) Physical deconditioning (Chronic) Anxiety (Chronic) Hypertension (Chronic) COPD without exacerbation (Chronic) Social History Social History Smoking Status: Never smoker If you are a former smoker, when did you quit? (Date/Year): 2012 Number of Years Smoked: 48 How many cigarettes a day do you smoke? (20 cigarettes=1 Pk): 20 Second hand tobacco smoke exposure: No Do you dip or chew tobacco?: No Do you vape?: No Patient requests smoking cessation consult: No Initiate information on smoking cessation: No Living arrangement: At home Living Condition: With family Relationship: Child Level: Dependent Home Mobility Equipment: Wheeled walker Do you feel safe in your home environment?: Yes Suffered physical, verbal, emotional, or financial abuse?: No History of Abuse: No Substance Use: denies use POLST Patient has POLST: No POLST Status: DNR (When I describe resuscitation, chest compressions, cardioversion, intubation she does not want that done. However, she does want all measures of treatment to be provided to her up until that point of cardiac arrest or respiratory failure) Review of Systems Status of ROS: 10 or more systems reviewed and unremarkable except as noted in history and below Constitutional Denies: Fever Eyes Denies: Vision loss Ears, nose, mouth, and throat Denies: Change in hearing or Difficulty swallowing Cardiovascular Reports: lightheadedness and shortness of breath with exertion; Denies: Irregular heart rate, chest pain or palpitations Respiratory Reports: Shortness of breath Gastrointestinal Denies: Abdominal pain, Nausea, Vomiting, Difficulty swallowing, Painful bowel movements, Rectal bleeding, Change in stool character, Melena, Blood in stool or Mucus in stool Genitourinary Denies: Urinary frequency or Urinary urgency Musculoskeletal Reports: Back pain Integumentary/Breast Denies: Rash Hematologic/Lymphatic Reports: Anemia; Denies: Petechiae or Easy bleeding Prior Level of Functionality: walker, lives with family Exam Exam Vital Signs: Vital Signs x48h Temp Pulse Pulse Resp BP Pulse Ox O2 Flow Rate 12/16/24 21:47 36.8 C 112 H 18 127/69 100 3 12/16/24 21:28 36.7 C 109 H 22 141/76 H 100 3 12/16/24 20:42 3 12/16/24 19:33 36.8 C 70 18 147/70 H 100 3 12/16/24 18:40 36.9 C 100 22 169/74 H 100 3 12/16/24 16:47 36.2 C L 91 18 115/70 97 3 12/16/24 16:31 35.7 C L 90 18 144/80 H 97 3 Constitutional normal general appearance and no apparent distress HENMT normocephalic and hearing grossly normal bilaterally Eyes PERRL and conjunctivae normal Neck/C-Spine visual inspection normal Lymph no lymphadenopathy noted Chest inspection of chest normal port accessed at left chest wall. Respiratory breath sounds equal bilaterally, normal respiratory effort and clear to auscultation bilaterally Cardiovascular normal heart rate noted Gastrointestinal abdomen normal to inspection and abdomen soft to palpation Genitourinary no CVA tenderness Back/Pelvis spine normal to inspection and no lumbar spine tenderness pain with straightening of right leg. Extremities normal to inspection Neurology gang leader II-XII intact, no focal motor deficit noted and GCS 15 Psychiatry mental status grossly normal, oriented x3, thought process normal and cooperative Skin skin color normal Conclusion/Plan Problem List (1) Symptomatic anemia: Plan: History of severe anemia. Back in 2020 possibly had an NSAID induced GI bleed. However, has had multiple endoscopy procedures both upper and lower and patient states that these have never shown anything. She has not had a capsule endoscopy. 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 She has a history of coronary artery disease and CHF. She states that she never felt better after she came in last time and got 1 unit of blood. I will therefore transfuse her 3 units of packed red blood cells. I have ordered anemia panel for the morning. If she is low on iron I will give her IV iron. I will check her CBC again in the morning. We will observe for any GI bleeding while she is here. She had a negative rectal exam in the emergency department for blood. I discussed this patient with LAKEISHA Sapp in the emergency department the decision was made to admit this patient for transfusion. She will be admitted to observation status. (2) Back pain: Plan: Acute on chronic. Worse today. Will treat her symptomatically with pain medication and muscle relaxers. I will give her Tylenol but not nonsteroidal anti-inflammatory drugs given her history. Plan I have spent 78 minutes in the care of this patient today. This includes time [id number], review and ordering of diagnostic imaging and laboratory studies and consultation with other providers. Monitoring the patient's signs symptoms, evaluation of medication effectiveness and patient's response to treatment. Lab Results Lab results reviewed: Yes 12/16/24 13:58 12/16/24 13:58 Core Measures Anticipated LOS I expect patient to be DC'd or transferred within 96 hours.: Yes Issues Hospital Issues and Management Plan: symptomatic anemia. admit for PRBCs, serial labs and possible iron infusion if indicated. DVT/VTE - Prophylaxis VTE/DVT Device ordered at admit?: Yes VTE/DVT Prophylaxis med ordered at admit?: No Not Ordered - Medical Reason: Contraindicated (anemia)
[2024-12-16] MEDS ORDERED: ONDANSETRON 4 MG/2 ML VIAL IVP PRN (18:55)
[2024-12-16] MEDS ORDERED: ALBUTEROL 6.7 GM INHALER INH PRN (18:59)
[2024-12-16] MEDS: oxyCODONE 5 MG TABLET PO PRN (19:03)
[2024-12-16] MEDS: CYCLOBENZAPRINE 10 MG TABLET PO PRN (19:04)
[2024-12-16] MEDS: NORTRIPTYLINE 25 MG CAPSULE PO SCH (21:10)
[2024-12-16] MEDS: HYDROmorphone 0.5 MG/0.5 ML SYRINGE IVP PRN (22:14)
[2024-12-16] MEDS: ACETAMINOPHEN 325 MG TABLET PO PRN (23:59)
[2024-12-16] MEDS: SODIUM CHLORIDE FLUSH 0.9% 10 ML SYRINGE IVP SCH (23:59)
[2024-12-17] MEDS: FUROSEMIDE 20 MG/2 ML VIAL IVP PRN (01:02)
[2024-12-17 07:55] LABS: BASOPHILS % (AUTO) 0.2 %; EOSINOPHILS # (AUTO) 0.4 10^3/uL (0.0-0.7); EOSINOPHILS % (AUTO) 2.4 %; HCT - HEMATOCRIT 30.7 % (37.0-47.0); HGB - HEMOGLOBIN 9.3 g/dL (12.0-16.0); LYMPHOCYTES # (AUTO) 0.8 10^3/uL (1.5-3.5); LYMPHOCYTES % (AUTO) 4.8 %; MEAN CORPUSCULAR HEMOGLOBIN 24.6 pg (27.0-31.0); MEAN CORPUSCULAR HGB CONC 30.3 g/dL (32.0-36.0); MEAN CORPUSCULAR VOLUME 81.2 fL (81.0-99.0); MEAN PLATELET VOLUME 9.3 fL (7.9-10.8); MONOCYTES # (AUTO) 1.2 10^3/uL (0.0-1.0); MONOCYTES % (AUTO) 7.3 %; NEUTROPHILS # (AUTO) 13.9 10^3/uL (1.5-6.6); NEUTROPHILS % (AUTO) 84.7 %; NRBC ABSOLUTE COUNT (AUTO) 0.08 x10^3/uL; NUCLEATED RED BLOOD CELLS AUTO 0.5 /100WBC; PLT - PLATELET COUNT 290 10^3/uL (130-450); RED BLOOD COUNT 3.78 10^6/uL (4.20-5.40); RED CELL DISTRIBUTION WIDTH 19.6 % (12.0-15.0); WHITE BLOOD COUNT 16.4 x10^3/uL (4.8-10.8)
[2024-12-17 08:15] LABS: CREATININE 0.9 mg/dL (0.6-1.3)
[2024-12-17] MEDS: FERRIC GLUCONATE 125 MG in SODIUM CHLORIDE 0.9% 100ML 100 ML IV ONE (11:59)
--- NOTE | 2024-12-17 13:54 | PHARMACY PROGRESS NOTE ---
Best Possible Medication History Admit Date and Time: 12/16/24 1742 Home Medications Medication Instructions Recorded Confirmed Type albuterol sulfate 90 mcg/actuation 2 puff inhalation Q4H PRN Wheezing 08/09/16 12/17/24 Rx aerosol inhaler (Ventolin HFA) ##1 acetaminophen 500 mg tablet 1,000 mg PO TID 03/07/21 12/17/24 History (Acetaminophen Extra Strength) aspirin 81 mg chewable tablet 162 mg PO DAILY 03/07/21 12/17/24 History atorvastatin 40 mg tablet 40 mg PO QPM 03/07/21 12/17/24 History tiotropium bromide 18 mcg capsule 1 puff inhalation DAILY 03/07/21 12/17/24 History with inhalation device (Spiriva with HandiHaler) anastrozole 1 mg tablet 1 mg PO ONCE 12/17/24 12/17/24 History ascorbic acid (vitamin C) 500 mg 500 mg PO DAILY 12/17/24 12/17/24 History tablet (C-500) carvedilol 6.25 mg tablet 6.25 mg PO BID 12/17/24 12/17/24 History docusate sodium 250 mg capsule 250 mg PO DAILY 12/17/24 12/17/24 History ferrous sulfate 325 mg (65 mg 325 mg PO Q OTHER DAY 12/17/24 12/17/24 History iron) tablet fluoxetine 10 mg capsule 20 mg PO ONCE 12/17/24 12/17/24 History fluticasone furoate 200 1 inh inhalation Q24H 12/17/24 12/17/24 History mcg-vilanterol 25 mcg/dose inhalation powder (Breo Ellipta) guaifenesin 600 mg tablet, 600 mg PO BID PRN congestion 12/17/24 12/17/24 History extended release 12 hr (Mucus Relief ER) nortriptyline 25 mg capsule 25 mg PO HS 12/17/24 12/17/24 History roflumilast 500 mcg tablet 500 mcg PO ONCE 12/17/24 12/17/24 History Processed by: Pharmacy Medications reviewed in ED?: No Medication History completed: Yes Patient Interview: Completed Secondary Source(s): Written medication list and Insurance records [facility] Statement: Per patient interview with pharmacist, online medication list, and review of [employer] insurance records. As the person ultimately responsible for medication therapy, providers are able to order a medication from an existing home medication list in [facility] via the "Reconcile Routine" prior to Confirmation of that medication by manager support. Such practice is discouraged except when the physician, in their clinical judgment, deems that a medical need exists for a medication without regard to previous use.
[2024-12-17] MEDS ORDERED: iohexoL-300 100 ML VIAL ONE (15:30)
[2024-12-17] MEDS: iohexoL-300 100 ML VIAL IVP ONE (15:55)
[2024-12-17] MEDS: FLUoxetine 10 MG CAPSULE PO SCH (15:58)
[2024-12-17] MEDS: FUROSEMIDE 20 MG/2 ML VIAL IVP ONE (15:58)
[2024-12-17] MEDS: DEXAMETHASONE 10 MG/ML VIAL IVP ONE (16:02)
--- NOTE | 2024-12-17 16:05 | PROVIDER PROGRESS NOTE ---
Subjective Prog Note Date Prog Note Date: 12/17/24 Subjective Subjective: She continues to have a lot of back pain, she has pain in her bilateral flanks, R>L, with some radiation to right thigh. This pain has been unrelenting.History of COPD on home oxygen. She is on 2 to 3 L via nasal cannula at home she remains on 2 to 3 L via nasal cannula here. Her sats are in the mid 90s. Current Medications Current Medications Current Medications: Current Medications Generic Name Dose Route Start Last Admin Trade Name Freq PRN Reason Stop Dose Admin Acetaminophen 650 mg 12/16/24 18:55 12/17/24 11:32 Acetaminophen 325 Mg Tablet PO 650 mg Q4HR PRN Administration Pain 1 to 4, or Fever Albuterol 2 puffs 12/16/24 18:59 Albuterol 6.7 Gm Inhaler INH Q4H PRN Wheezing Albuterol/Ipratropium 3 ml 12/17/24 15:46 Ipratropium/Albuterol 3 Ml Neb INH RTQID PRN Wheezing Anastrozole 1 mg 12/17/24 16:00 Anastrozole 1 Mg Tablet PO DAILY [facility] Aspirin 162 mg 12/18/24 09:00 Aspirin Chew 81 Mg Tablet PO DAILY [facility] Atorvastatin Calcium 40 mg 12/17/24 21:00 Atorvastatin 40 Mg Tablet PO QPM ERNESTINA Budesonide 0.5 mg 12/17/24 19:00 Budesonide 0.5 Mg/2 Ml Neb INH RTBID ERNESTINA Carvedilol 6.25 mg 12/17/24 21:00 Carvedilol 3.125 Mg Tablet PO BID [facility] Cyclobenzaprine HCl 10 mg 12/16/24 18:55 12/17/24 08:12 Cyclobenzaprine 10 Mg Tablet PO 10 mg TID PRN Administration PAIN 5-7 Dexamethasone Sodium Phosphate 10 mg 12/17/24 16:00 Dexamethasone 10 Mg/Ml Vial IVP 12/17/24 16:01 ONCE ONE Docusate Sodium 250 mg 12/18/24 09:00 Docusate Sodium 250 Mg Capsule PO DAILY ERNESTINA Fluoxetine HCl 20 mg 12/17/24 16:00 Fluoxetine 10 Mg Capsule PO DAILY [facility] Guaifenesin 600 mg 12/17/24 15:29 Guaifenesin 600 Mg Tablet PO BID PRN congestion Hydromorphone HCl 0.5 mg 12/16/24 21:49 12/17/24 12:28 Hydromorphone 0.5 Mg/0.5 Ml Syringe IVP 0.5 mg Q2H PRN Administration Severe Pain (Level 7-10) Iohexol 100 ml 12/17/24 15:55 12/17/24 15:55 Iohexol-300 100 Ml Vial IVP 12/17/24 15:56 100 ml ONCE ONE Administration Nortriptyline HCl 25 mg 12/16/24 21:00 12/16/24 21:10 Nortriptyline 25 Mg Capsule PO 25 mg QPM ERNESTINA Administration Ondansetron HCl 4 mg 12/16/24 18:55 Ondansetron 4 Mg/2 Ml Vial IVP Q6HR PRN Nausea / Vomiting Oxycodone HCl 5 mg 12/16/24 18:55 12/17/24 11:32 Oxycodone 5 Mg Tablet PO 5 mg Q4HR PRN Administration Pain 5 to 7 Sodium Chloride 10 ml 12/16/24 18:55 Sodium Chloride Flush 0.9% 10 Ml Syringe IVP PRN PRN NEEDED PER PROVIDER ORDERS Sodium Chloride 10 ml 12/17/24 01:00 12/17/24 09:07 Sodium Chloride Flush 0.9% 10 Ml Syringe IVP 10 ml 0100,0900,1700 ERNESTINA Administration Objective Vital Signs/Intake & Output Reviewed Vital Signs: Yes Vital Signs: Vital Signs x48h Temp Pulse Resp BP Pulse Ox O2 Flow Rate 12/17/24 15:45 37.3 C 110 H 22 127/62 94 3 12/17/24 13:31 37 C 123 H 16 134/69 H 94 3 12/17/24 08:05 36.6 C 120 H 20 126/80 94 3 Intake & Output: Intake & Output 12/14/24 12/15/24 12/16/24 12/17/24 23:59 23:59 23:59 23:59 Intake Total 450 / 450 2040 / 2040 Output Total 0 / 0 900 / 900 Balance 450 / 450 1140 / 1140 Weight (kg) 90 kg Objective General Appearance: positive Moderate distress (Due to pain) Eyes Bilateral: positive Normal inspection, PERRL, EOMI and No scleral icterus ENT: positive ENT inspection nml, Dry mucous membranes and Other Neck: positive Nml inspection Respiratory: positive Chest non-tender, No respiratory distress and Rales (occasional at bases) Cardiovascular: positive Other (tachycardia) Abdomen: positive Non-tender and No distention Back: positive Nml inspection and Other (bilateral mild lumbar paraspinal tenderness); negative CVA tenderness (R) or CVA tenderness (L) Skin: positive Color nml and Other (less pallor than yesterday. ) Extremities: positive Non-tender, Nml appearance and No pedal edema; negative Calf tenderness Neurologic/Psychiatric: positive Oriented x3 and Mood/affect nml Lab Results 12/17/24 07:48 12/17/24 07:48 Other Labs: Lab Results x24hrs 12/17/24 12/16/24 Range/Units 07:48 14:26 WBC 16.4 H (4.8-10.8) x10^3/uL RBC 3.78 L (4.20-5.40) 10^6/uL Hgb 9.3 L (12.0-16.0) g/dL Hct 30.7 L (37.0-47.0) % MCV 81.2 (81.0-99.0) fL MCH 24.6 L (27.0-31.0) pg MCHC 30.3 L (32.0-36.0) g/dL RDW 19.6 H (12.0-15.0) % Plt Count 290 (130-450) 10^3/uL MPV 9.3 (7.9-10.8) fL Neut # (Auto) 13.9 H (1.5-6.6) 10^3/uL Lymph # (Auto) 0.8 L (1.5-3.5) 10^3/uL [place] # (Auto) 1.2 H (0.0-1.0) 10^3/uL Eos # (Auto) 0.4 (0.0-0.7) 10^3/uL Baso # (Auto) 0.0 (0.0-0.1) 10^3/uL Absolute Nucleated RBC 0.08 x10^3/uL Nucleated RBC % 0.5 /100WBC Sodium 135 (135-145) mmol/L Potassium 4.0 (3.5-4.5) mmol/L Chloride 102 (101-111) mmol/L Carbon Dioxide 23 (21-32) mmol/L Anion Gap 10.0 (6-13) BUN 22 H (6-20) mg/dL Creatinine 0.9 (0.6-1.3) mg/dL Estimated GFR (MDRD) 62 L (>89) Glucose 93 (74-104) mg/dL Calcium 9.0 (8.5-10.3) mg/dL Iron 30 L (50-212) ug/dL TIBC 382 (250-450) ug/dL % Saturation 8 L (20-50) % Transferrin 273 (203-362) mg/dL Blood Type A POSITIVE Antibody Screen NEGATIVE Crossmatch IS Only See Detail Assessment/Plan Problem List (1) Back pain: Impression: She has received 7 doses of IV Dilaudid since admission yesterday evening. She has also received 4 doses of cyclobenzaprine and 4 doses of p.o. oxycodone. Her pain is not well-controlled. She is not have any pain or burning when she urinates her urinalysis was negative. She is having flank pain bilaterally right greater than left. She is unable to ambulate secondary to her back pain she is unable to stand up straight. Due to this severe and unrelenting back pain I did repeat a CT of the abdomen pelvis. She had a CT of the lumbar spine yesterday showing lumbar stenosis but did not completely image the abdomen. I am also doing this in light of her leukocytosis and tachycardia. We will continue to treat her pain. I have ordered Decadron 10 mg IV to control any inflammation. (2) Symptomatic anemia: Impression: Resolved. History of severe anemia. Back in 2020 possibly had an NSAID induced GI bleed. However, has had multiple endoscopy procedures both upper and lower and patient states that these have never shown anything. She has not had a capsule endoscopy. Her manager environmental services is at [facility] and that is eventually the plan. She has received 3 units of packed red blood cells. Her hemoglobin has risen from 5.1-9.3. She shows low iron levels. Her iron is 30, TIBC's 382, percent saturation 8% transferrin 273. I have given her 1 dose of Ferrlecit. (3) COPD (chronic obstructive pulmonary disease): Impression: Chronic and stable. She is on 3 L via nasal cannula. This is true at home as well. I have reordered her home medications. She has not had any issues with her breathing since she has been here. She is also on albuterol Atrovent nebs as needed. (4) Leukocytosis: Impression: Rising leukocytosis from 10.2 on admission to 16.[address] abdomen pelvis to rule out infectious causes could also be secondary to stress as her pain has been quite severe. I have spent 40minutes in the care of this patient today. This includes time [id number], review and ordering of diagnostic imaging and laboratory studies. Monitoring the patient's signs symptoms, evaluation of medication effectiveness and patient's response to treatment.
--- NOTE | 2024-12-17 16:20 | CT Report ---
PROCEDURE: CT Abdomen/Pelvis W INDICATIONS: back pain/flank pain CONTRAST: omni 300, 100 TECHNIQUE: After the administration of intravenous contrast, a CT scan of the abdomen and pelvis was performed. Images were recorded and evaluated at appropriate window settings. Reformats: coronal and sagittal. F or radiation dose reduction, the following was used: automated exposure control, adjustment of mA and /or kV according to patient size. COMPARISON: None. FINDINGS: Image quality: Diagnostic. Lower chest: Bilateral pulmonary scarring. Liver: Hepatic parenchyma is diffusely decreased in attenuation without focal mass lesion. Gallbladder: Biliary tree: No intrahepatic or extrahepatic dilation, accounting for age. Spleen: No splenomegaly. Pancreas: No pancreatic ductal dilation. Adrenals: No adrenal nodule. Kidneys and ureters: No hydronephrosis. No renal cystic lesion which requires follow up. No solid mas s. Stomach, bowel and peritoneum: No gastric or small bowel dilation. No abnormal wall thickening. No pa thologic free fluid. Lymph nodes: No central or retroperitoneal adenopathy. Vessels: No infrarenal aortic aneurysm. Patent portal vein.Atherosclerotic calcification of the abdom inal aorta without evidence of aneurysm. PELVIS Reproductive organs: Unremarkable. Bladder: No abnormal wall thickening. Pelvic lymph nodes: No pelvic adenopathy by size criteria. Bones: No aggressive osseous abnormality. Other: Small umbilical ventral hernia is fat without bowel involvement. IMPRESSION: No acute CT findings in the abdomen or pelvis. 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
[2024-12-17] MEDS: ANASTROZOLE 1 MG TABLET PO SCH (16:54)
[2024-12-17] MEDS: KETOROLAC 15 MG/ML VIAL IVP SCH (20:23)
[2024-12-17] MEDS: ATORVASTATIN 40 MG TABLET PO SCH (20:24)
[2024-12-17] MEDS: carvediloL 3.125 MG TABLET PO SCH (20:24)
[2024-12-17] MEDS ORDERED: NORTRIPTYLINE 25 MG CAPSULE PO SCH (21:00)
[2024-12-17] MEDS: IPRATROPIUM/ALBUTEROL 3 ML NEB INH PRN (22:21)
[2024-12-17] MEDS: BUDESONIDE 0.5 MG/2 ML NEB INH SCH (22:21)
[2024-12-18 07:29] LABS: CALCIUM 9.2 mg/dL (8.5-10.3); CREATININE 0.9 mg/dL (0.6-1.3); POTASSIUM 4.3 mmol/L (3.5-4.5)
[2024-12-18 07:34] LABS: BASOPHILS % (AUTO) 0.1 %; HGB - HEMOGLOBIN 8.6 g/dL (12.0-16.0); LYMPHOCYTES # (AUTO) 0.6 10^3/uL (1.5-3.5); LYMPHOCYTES % (AUTO) 4.5 %; MEAN CORPUSCULAR HEMOGLOBIN 24.6 pg (27.0-31.0); MEAN CORPUSCULAR HGB CONC 29.7 g/dL (32.0-36.0); MEAN CORPUSCULAR VOLUME 82.9 fL (81.0-99.0); MEAN PLATELET VOLUME 10.1 fL (7.9-10.8); MONOCYTES # (AUTO) 0.3 10^3/uL (0.0-1.0); MONOCYTES % (AUTO) 2.6 %; NEUTROPHILS # (AUTO) 11.9 10^3/uL (1.5-6.6); NEUTROPHILS % (AUTO) 92.2 %; NRBC ABSOLUTE COUNT (AUTO) 0.03 x10^3/uL; NUCLEATED RED BLOOD CELLS AUTO 0.2 /100WBC; PLT - PLATELET COUNT 283 10^3/uL (130-450); WHITE BLOOD COUNT 12.9 x10^3/uL (4.8-10.8)
[2024-12-18] MEDS: ASPIRIN CHEW 81 MG TABLET PO SCH (08:53)
[2024-12-18] MEDS: DOCUSATE SODIUM 250 MG CAPSULE PO SCH (08:54)
--- NOTE | 2024-12-18 14:04 | PROVIDER PROGRESS NOTE ---
Subjective Prog Note Date Prog Note Date: 12/18/24 Subjective Subjective: back pain 5/10. steroids and toradol are working. (she has never had evidence of GI bleed- this admit or otherwise). She wants to get up to the bathroom. She notices today that her thinking is not as foggy, and she is happy about that. Current Medications Current Medications Current Medications: Current Medications Generic Name Dose Route Start Last Admin Trade Name Freq PRN Reason Stop Dose Admin Acetaminophen 650 mg 12/16/24 18:55 12/17/24 11:32 Acetaminophen 325 Mg Tablet PO 650 mg Q4HR PRN Administration Pain 1 to 4, or Fever Albuterol 2 puffs 12/16/24 18:59 Albuterol 6.7 Gm Inhaler INH Q4H PRN Wheezing Albuterol/Ipratropium 3 ml 12/17/24 15:46 12/17/24 22:21 Ipratropium/Albuterol 3 Ml Neb INH 3 ml RTQID PRN Administration Wheezing Anastrozole 1 mg 12/17/24 16:00 12/18/24 11:18 Anastrozole 1 Mg Tablet PO 1 mg DAILY ERNESTINA Administration Aspirin 162 mg 12/18/24 09:00 12/18/24 08:53 Aspirin Chew 81 Mg Tablet PO 162 mg DAILY ERNESTINA Administration Atorvastatin Calcium 40 mg 12/17/24 21:00 12/17/24 20:24 Atorvastatin 40 Mg Tablet PO 40 mg QPM ERNESTINA Administration Budesonide 0.5 mg 12/17/24 19:00 12/18/24 08:58 Budesonide 0.5 Mg/2 Ml Neb INH 0.5 mg RTBID ERNESTINA Administration Carvedilol 6.25 mg 12/17/24 21:00 12/18/24 08:53 Carvedilol 3.125 Mg Tablet PO 6.25 mg BID ERNESTINA Administration Cyclobenzaprine HCl 10 mg 12/16/24 18:55 12/18/24 08:54 Cyclobenzaprine 10 Mg Tablet PO 10 mg TID PRN Administration PAIN 5-7 Dexamethasone 6 mg 12/18/24 14:00 Dexamethasone 4 Mg/Ml Vial IVP 12/18/24 14:01 ONCE ONE Docusate Sodium 250 mg 12/18/24 09:00 12/18/24 08:54 Docusate Sodium 250 Mg Capsule PO 250 mg DAILY ERNESTINA Administration Fluoxetine HCl 20 mg 12/17/24 16:00 12/18/24 08:53 Fluoxetine 10 Mg Capsule PO 20 mg DAILY ERNESTINA Administration Guaifenesin 600 mg 12/17/24 15:29 Guaifenesin 600 Mg Tablet PO BID PRN congestion Hydromorphone HCl 0.5 mg 12/16/24 21:49 12/18/24 04:38 Hydromorphone 0.5 Mg/0.5 Ml Syringe IVP 0.5 mg Q2H PRN Administration Severe Pain (Level 7-10) Ketorolac Tromethamine 15 mg 12/17/24 21:00 12/18/24 11:18 Ketorolac 15 Mg/Ml Vial IVP 12/22/24 20:59 15 mg Q6HR ERNESTINA Administration Nortriptyline HCl 25 mg 12/16/24 21:00 12/17/24 20:24 Nortriptyline 25 Mg Capsule PO 25 mg QPM ERNESTINA Administration Ondansetron HCl 4 mg 12/16/24 18:55 Ondansetron 4 Mg/2 Ml Vial IVP Q6HR PRN Nausea / Vomiting Oxycodone HCl 5 mg 12/16/24 18:55 12/18/24 11:18 Oxycodone 5 Mg Tablet PO 5 mg Q4HR PRN Administration Pain 5 to 7 Sodium Chloride 10 ml 12/16/24 18:55 Sodium Chloride Flush 0.9% 10 Ml Syringe IVP PRN PRN NEEDED PER PROVIDER ORDERS Sodium Chloride 10 ml 12/17/24 01:00 12/18/24 08:54 Sodium Chloride Flush 0.9% 10 Ml Syringe IVP 10 ml 0100,0900,1700 ERNESTINA Administration Objective Vital Signs/Intake & Output Reviewed Vital Signs: Yes Vital Signs: Vital Signs x48h Temp Pulse Pulse Resp BP Pulse Ox O2 Flow Rate 12/18/24 13:08 36.7 C 91 18 106/48 L 95 3 12/18/24 12:15 36.3 C L 86 20 95/51 L 97 3 12/18/24 08:58 3 12/18/24 08:58 91 18 3 12/18/24 08:02 36.4 C L 90 20 135/64 H 97 3 Intake & Output: Intake & Output 12/15/24 12/16/24 12/17/24 12/18/24 23:59 23:59 23:59 23:59 Intake Total 450 / 450 2940 / 2940 360 / 360 Output Total 0 / 0 1300 / 1300 1225 / 1225 Balance 450 / 450 1640 / 1640 -865 / -865 Weight (kg) 90 kg Objective General Appearance: positive Moderate distress (Due to pain) Eyes Bilateral: positive Normal inspection, PERRL, EOMI and No scleral icterus ENT: positive ENT inspection nml, Dry mucous membranes and Other Neck: positive Nml inspection Respiratory: positive Chest non-tender, No respiratory distress and Breath sounds nml Cardiovascular: positive Regular rate & rhythm and Other (tachycardia) Abdomen: positive Non-tender and No distention Back: positive Nml inspection and Other (bilateral mild lumbar paraspinal tenderness); negative CVA tenderness (R) or CVA tenderness (L) Skin: positive Color nml and Other Extremities: positive Non-tender, Nml appearance and No pedal edema; negative Calf tenderness Neurologic/Psychiatric: positive Oriented x3 and Mood/affect nml Lab Results 12/18/24 07:00 12/18/24 07:00 Other Labs: Lab Results x24hrs 12/18/24 Range/Units 07:00 WBC 12.9 H (4.8-10.8) x10^3/uL RBC 3.50 L (4.20-5.40) 10^6/uL Hgb 8.6 L (12.0-16.0) g/dL Hct 29.0 L (37.0-47.0) % MCV 82.9 (81.0-99.0) fL MCH 24.6 L (27.0-31.0) pg MCHC 29.7 L (32.0-36.0) g/dL RDW 20.0 H (12.0-15.0) % Plt Count 283 (130-450) 10^3/uL MPV 10.1 (7.9-10.8) fL Neut # (Auto) 11.9 H (1.5-6.6) 10^3/uL Lymph # (Auto) 0.6 L (1.5-3.5) 10^3/uL [place] # (Auto) 0.3 (0.0-1.0) 10^3/uL Eos # (Auto) 0.0 (0.0-0.7) 10^3/uL Baso # (Auto) 0.0 (0.0-0.1) 10^3/uL Absolute Nucleated RBC 0.03 x10^3/uL Nucleated RBC % 0.2 /100WBC Sodium 135 (135-145) mmol/L Potassium 4.3 (3.5-4.5) mmol/L Chloride 100 L (101-111) mmol/L Carbon Dioxide 28 (21-32) mmol/L Anion Gap 7.0 (6-13) BUN 28 H (6-20) mg/dL Creatinine 0.9 (0.6-1.3) mg/dL Estimated GFR (MDRD) 62 L (>89) Glucose 158 H (74-104) mg/dL Calcium 9.2 (8.5-10.3) mg/dL Assessment/Plan Problem List (1) Back pain: Impression: .She was seen by PT today. She was able to get out of bed and ambulate short distance. back pain is 5/10, and she feels like her mental status is improving, she is not as foggy today. PT thinks she can go home tomorrow with assistance. I will send her home on medrol dose pack, oral pain meds. She will need close primary care followup, and likely outpatient PT (2) Symptomatic anemia: Impression: Resolved. History of severe anemia. Back in 2020 possibly had an NSAID induced GI bleed. However, has had multiple endoscopy procedures both upper and lower and patient states that these have never shown anything. She has not had a capsule endoscopy. Her instrumentation chemist is at [facility] and that is eventually the plan. She has received 3 units of packed red blood cells. Her hemoglobin has risen from 5.1-9.3. today 8.6 She shows low iron levels. Her iron is 30, TIBC's 382, percent saturation 8% transferrin 273. I have given her 1 dose of Ferrlecit. (3) COPD (chronic obstructive pulmonary disease): Impression: Chronic and stable. She is on 3 L via nasal cannula. This is true at home as well. I have reordered her home medications. She has not had any issues with her breathing since she has been here. She is also on albuterol Atrovent nebs as needed. (4) Leukocytosis: Impression: Leukocytosis improving, likely secondary to stress ( and now she is on steroids, so will have some elevation) no fevers. I have spent 30 minutes in the care of this patient today. This includes time [id number], review and ordering of diagnostic imaging and laboratory studies. Monitoring the patient's signs symptoms, evaluation of medication effectiveness and patient's response to treatment.
[2024-12-18] MEDS: DEXAMETHASONE 4 MG/ML VIAL IVP ONE (14:24)
--- NOTE | 2024-12-18 17:09 | PT Plan of Care ---
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 Please see chart for complete medical hx. The pt was received resting supine in bed while on 3L O2 via NC and she did not appear to have any discomfort when at rest. She presented today with mildly decreased B UE and LE strength, intense LBP during transitional movements, and decreased activity tolerance which limited her tolerance with functional mobility. Her overall tolerance throughout this assessment was limited by pain and fatigue. At this time recommend continued skilled PT intervention while in the acute setting and DC to home with HH therapy and bath aid for further rehab once pt medically stable. This plan was discussed with the pt and she was in agreement with this, however, she stated that she would likely decline the HH services due to concern about her daughter being a hoarder and having concern with people coming into their home. At the end of the session the pt was sitting up in a chair with call light in reach and all needs met. RN and PA updated on pt's status and DC rec. PATIENT/FAMILY GOALS Patient/Family Goals: To reduce pain and get stronger GOALS Improve supine to sit to:: Modified Independent Improve sit to stand to:: Modified Independent Improve pivot transfer ability to:: Modified Independent Improve sit to supine to:: Modified Independent Improve gait ability to:: Ind Advance Assistive Device to:: Front Wheeled Walker Increase distance walked to (in feet):: 25 Reduce verbal cues to:: 1 Reduce physical cues to:: 1 Improve Sitting Balance to:: Good PLAN Frequency: 1-2x/day Duration: Until discharge DISCHARGE RECOMMENDATIONS Discharge Location: Previous Living Situation Support/Services Needed: Home Health P.T. DC Equipment Recommended: Front wheeled walker Other Discharge Equipment: pt owns all recommended DME Transport Needs at Discharge: Personal vehicle
[2024-12-18] MEDS: polyethylene glycoL 3350 17 GM PACKET PO SCH (19:16)
[2024-12-19] MEDS: SODIUM CHLORIDE FLUSH 0.9% 10 ML SYRINGE IVP PRN (03:01)
[2024-12-19 06:10] LABS: BASOPHILS % (AUTO) 0.1 %; HCT - HEMATOCRIT 28.7 % (37.0-47.0); HGB - HEMOGLOBIN 8.2 g/dL (12.0-16.0); LYMPHOCYTES # (AUTO) 0.7 10^3/uL (1.5-3.5); LYMPHOCYTES % (AUTO) 4.5 %; MEAN CORPUSCULAR HEMOGLOBIN 24.1 pg (27.0-31.0); MEAN CORPUSCULAR HGB CONC 28.6 g/dL (32.0-36.0); MEAN CORPUSCULAR VOLUME 84.4 fL (81.0-99.0); MEAN PLATELET VOLUME 9.9 fL (7.9-10.8); MONOCYTES # (AUTO) 0.7 10^3/uL (0.0-1.0); MONOCYTES % (AUTO) 4.3 %; NEUTROPHILS # (AUTO) 13.6 10^3/uL (1.5-6.6); NEUTROPHILS % (AUTO) 90.4 %; NRBC ABSOLUTE COUNT (AUTO) 0.03 x10^3/uL; NUCLEATED RED BLOOD CELLS AUTO 0.2 /100WBC; PLT - PLATELET COUNT 284 10^3/uL (130-450); RED CELL DISTRIBUTION WIDTH 20.1 % (12.0-15.0)
[2024-12-19 06:20] LABS: SLIDE REVIEW? Indicated
[2024-12-19 06:26] LABS: CALCIUM 9.3 mg/dL (8.5-10.3); CREATININE 0.9 mg/dL (0.6-1.3); POTASSIUM 4.8 mmol/L (3.5-4.5)
[2024-12-19 06:39] LABS: PLATELET ESTIMATE, MANUAL NORMAL (130-450,000) (NORMAL); PLATELET MORPHOLOGY NORMAL APPEARANCE (NORMAL)
[2024-12-19 06:40] LABS: WBC MORPHOLOGY (MULTIPLE) NORMAL APPEARANCE (NORMAL)
[2024-12-19] MEDS: DEXAMETHASONE 4 MG/ML VIAL IVP SCH (09:00)
[2024-12-19] MEDS: guaiFENesin 600 MG TABLET PO PRN (12:08)
--- NOTE | 2024-12-19 12:22 | PROVIDER PROGRESS NOTE ---
Subjective Prog Note Date Prog Note Date: 12/19/24 Subjective Pt reports feeling: Improved Subjective: Her back pain is a little better. She is ready to go home. she has refused home health. unfortuantely, she does not want to embarass her daughter, and the home apparently is a hoarding situation. Current Medications Current Medications Current Medications: Current Medications Generic Name Dose Route Start Last Admin Trade Name Freisrael PRN Reason Stop Dose Admin Acetaminophen 650 mg 12/16/24 18:55 12/19/24 09:02 Acetaminophen 325 Mg Tablet PO 650 mg Q4HR PRN Administration Pain 1 to 4, or Fever Albuterol 2 puffs 12/16/24 18:59 Albuterol 6.7 Gm Inhaler INH Q4H PRN Wheezing Anastrozole 1 mg 12/17/24 16:00 12/19/24 12:08 Anastrozole 1 Mg Tablet PO 1 mg DAILY ERNESTINA Administration Aspirin 162 mg 12/18/24 09:00 12/19/24 09:00 Aspirin Chew 81 Mg Tablet PO 162 mg DAILY ERNESTINA Administration Atorvastatin Calcium 40 mg 12/17/24 21:00 12/18/24 20:47 Atorvastatin 40 Mg Tablet PO 40 mg QPM ERNESTINA Administration Budesonide 0.5 mg 12/17/24 19:00 12/19/24 10:27 Budesonide 0.5 Mg/2 Ml Neb INH 0.5 mg RTBID ERNESTINA Administration Carvedilol 6.25 mg 12/17/24 21:00 12/19/24 09:05 Carvedilol 3.125 Mg Tablet PO 6.25 mg BID ERNESTINA Administration Cyclobenzaprine HCl 10 mg 12/16/24 18:55 12/19/24 09:01 Cyclobenzaprine 10 Mg Tablet PO 10 mg TID PRN Administration PAIN 5-7 Dexamethasone 6 mg 12/19/24 09:00 12/19/24 09:00 Dexamethasone 4 Mg/Ml Vial IVP 12/22/24 08:59 6 mg DAILY ERNESTINA Administration Docusate Sodium 250 mg 12/18/24 09:00 12/19/24 09:01 Docusate Sodium 250 Mg Capsule PO 250 mg DAILY ERNESTINA Administration Fluoxetine HCl 20 mg 12/17/24 16:00 12/19/24 09:01 Fluoxetine 10 Mg Capsule PO 20 mg DAILY ERNESTINA Administration Guaifenesin 600 mg 12/17/24 15:29 12/19/24 12:08 Guaifenesin 600 Mg Tablet PO 600 mg BID PRN Administration congestion Hydromorphone HCl 0.5 mg 12/16/24 21:49 12/19/24 05:42 Hydromorphone 0.5 Mg/0.5 Ml Syringe IVP 0.5 mg Q2H PRN Administration Severe Pain (Level 7-10) Ipratropium [place] 0.5 mg 12/19/24 13:00 Ipratropium 0.2 Mg/Ml Neb INH RTQ6H ERNESTINA Ketorolac Tromethamine 15 mg 12/17/24 21:00 12/19/24 12:07 Ketorolac 15 Mg/Ml Vial IVP 12/22/24 20:59 15 mg Q6HR ERNESTINA Administration Nortriptyline HCl 25 mg 12/16/24 21:00 12/18/24 20:47 Nortriptyline 25 Mg Capsule PO 25 mg QPM ERNESTINA Administration Ondansetron HCl 4 mg 12/16/24 18:55 Ondansetron 4 Mg/2 Ml Vial IVP Q6HR PRN Nausea / Vomiting Oxycodone HCl 5 mg 12/16/24 18:55 12/19/24 09:01 Oxycodone 5 Mg Tablet PO 5 mg Q4HR PRN Administration Pain 5 to 7 Polyethylene Glycol 17 gm 12/18/24 18:00 12/19/24 08:59 Polyethylene Glycol 3350 17 Gm Packet PO 17 gm DAILY ERNESTINA Administration Sodium Chloride 10 ml 12/16/24 18:55 12/19/24 12:08 Sodium Chloride Flush 0.9% 10 Ml Syringe IVP 10 ml PRN PRN Administration NEEDED PER PROVIDER ORDERS Sodium Chloride 10 ml 12/17/24 01:00 12/19/24 05:42 Sodium Chloride Flush 0.9% 10 Ml Syringe IVP 10 ml 0100,0900,1700 ERNESTINA Administration Objective Vital Signs/Intake & Output Reviewed Vital Signs: Yes Vital Signs: Vital Signs x48h Temp Pulse Pulse Pulse Resp BP Pulse Ox 12/19/24 10:31 12/19/24 10:29 94 20 12/19/24 09:00 98 115/60 12/19/24 08:15 37.0 C 99 20 116/71 98 12/19/24 05:18 36.7 C 89 20 129/76 97 O2 Flow Rate 12/19/24 10:31 3 12/19/24 10:29 3 12/19/24 09:00 12/19/24 08:15 3 12/19/24 05:18 3 Intake & Output: Intake & Output 12/16/24 12/17/24 12/18/24 12/19/24 23:59 23:59 23:59 23:59 Intake Total 450 / 450 2940 / 2940 950 / 950 780 / 780 Output Total 0 / 0 1300 / 1300 1325 / 1325 Balance 450 / 450 1640 / 1640 -375 / -375 780 / 780 Weight (kg) 90 kg Objective General Appearance: positive No acute distress and Alert Eyes Bilateral: positive Normal inspection ENT: positive ENT inspection nml Neck: positive Nml inspection Respiratory: positive Chest non-tender, Rhonchi (occasional. clears with cough. ) and Other (yellow sputum, baseline. ) Cardiovascular: positive Regular rate & rhythm Abdomen: positive No distention Back: positive Nml inspection and Other (still with paraspinal tenderness) Skin: positive Color nml Extremities: positive No pedal edema Neurologic/Psychiatric: positive Oriented x3 Lab Results 12/19/24 05:55 12/19/24 05:55 Other Labs: Lab Results x24hrs 12/19/24 12/19/24 12/19/24 Range/Units 05:55 05:55 05:55 WBC (4.8-10.8) x10^3/uL RBC (4.20-5.40) 10^6/uL Hgb (12.0-16.0) g/dL Hct (37.0-47.0) % MCV (81.0-99.0) fL MCH (27.0-31.0) pg MCHC (32.0-36.0) g/dL RDW (12.0-15.0) % Plt Count (130-450) 10^3/uL MPV (7.9-10.8) fL Neut # (Auto) (1.5-6.6) 10^3/uL Lymph # (Auto) (1.5-3.5) 10^3/uL [place] # (Auto) (0.0-1.0) 10^3/uL Eos # (Auto) (0.0-0.7) 10^3/uL Baso # (Auto) (0.0-0.1) 10^3/uL Absolute Nucleated RBC x10^3/uL Nucleated RBC % /100WBC Manual Slide Review WBC Morphology (NORMAL) Platelet Estimate (NORMAL) Platelet Morphology (NORMAL) RBC Morph Micro Appear 1+ OVALOCYTES 1+ POLYCHROMASIA 2+ HYPOCHROMASIA (NORMAL) Sodium 140 (135-145) mmol/L Potassium 4.8 H (3.5-4.5) mmol/L Chloride 106 (101-111) mmol/L Carbon Dioxide 29 (21-32) mmol/L Anion Gap 5.0 L (6-13) BUN 43 H (6-20) mg/dL Creatinine 0.9 (0.6-1.3) mg/dL Estimated GFR (MDRD) 62 L (>89) Glucose 117 H (74-104) mg/dL Calcium 9.3 (8.5-10.3) mg/dL 12/19/24 Range/Units 05:55 WBC 15.0 H (4.8-10.8) x10^3/uL RBC 3.40 L (4.20-5.40) 10^6/uL Hgb 8.2 L (12.0-16.0) g/dL Hct 28.7 L (37.0-47.0) % MCV 84.4 (81.0-99.0) fL MCH 24.1 L (27.0-31.0) pg MCHC 28.6 L (32.0-36.0) g/dL RDW 20.1 H (12.0-15.0) % Plt Count 284 (130-450) 10^3/uL MPV 9.9 (7.9-10.8) fL Neut # (Auto) 13.6 H (1.5-6.6) 10^3/uL Lymph # (Auto) 0.7 L (1.5-3.5) 10^3/uL [place] # (Auto) 0.7 (0.0-1.0) 10^3/uL Eos # (Auto) 0.0 (0.0-0.7) 10^3/uL Baso # (Auto) 0.0 (0.0-0.1) 10^3/uL Absolute Nucleated RBC 0.03 x10^3/uL Nucleated RBC % 0.2 /100WBC Manual Slide Review Indicated WBC Morphology NORMAL APPEARANCE (NORMAL) Platelet Estimate NORMAL (130-450,000) (NORMAL) Platelet Morphology NORMAL APPEARANCE (NORMAL) RBC Morph Micro Appear 1+ ANISOCYTOSIS (NORMAL) Sodium (135-145) mmol/L Potassium (3.5-4.5) mmol/L Chloride (101-111) mmol/L Carbon Dioxide (21-32) mmol/L Anion Gap (6-13) BUN (6-20) mg/dL Creatinine (0.6-1.3) mg/dL Estimated GFR (MDRD) (>89) Glucose (74-104) mg/dL Calcium (8.5-10.3) mg/dL Assessment/Plan Problem List (1) Back pain: (2) Symptomatic anemia: (3) COPD (chronic obstructive pulmonary disease): (4) Leukocytosis:
--- NOTE | 2024-12-19 12:23 | Discharge Summary ---
Discharge Summary Admit Date: 12/16/24 Discharge Date: 12/19/24 Discharging Provider: Catie Amato PA-C Primary Care Provider: Jung Victoria MD Code Status: Do Not Attempt Resuscitation DIAGNOSES Discharge Diagnoses with Status of Each Condition: Back pain: acute exacerbation of chronic. improving on steroids and pain meds Symptomatic anemia: unclear etiology despite extensive workup in past. stable post transfusion. COPD. chronic and stable on 3L NC O2 Leukocytosis: likely secondary to steroids/stress, improving. no fevers. HPI History of Present Illness: Represents to the ED for the 2nd time in several weeks for feeling weak and tired. She has a history of anemia, and remote hx of NSAID induced GI bleed, denies any current melena or BRBPR. She last had upper and lower endoscopy in April of last year,and has had these procedures multiple times, they have always been negative. She has also been seen by hematology, and this does not seem to be a bone marrow problem . this am, also woke up with right sided back pain, with radiation to her right thigh. she has not had any bowel or bladder incontinence, just pain. no fever, no dysuria. no recent procedures (ie CHAPO). has been on chronic narcotics in the past, but not currently. Lives with her daughter and grandson. 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 she has a history of breast cancer, and is currently only on hormone lizzie, finished chemo some time ago. ALLERGIES Allergies Allergy/AdvReac Type Severity Reaction Status Date / Time metoprolol AdvReac Intermediate Cough Verified 12/16/24 12:43 hydromorphone (From Dilaudid) AdvReac Emesis Verified 12/16/24 12:43 Penicillins AdvReac Hives Verified 12/16/24 12:43 MEDICATIONS Ambulatory Orders Medication Instructions Recorded Confirmed albuterol sulfate 90 mcg/actuation 2 puff inhalation Q4H PRN Wheezing 08/09/16 12/17/24 aerosol inhaler (Ventolin HFA) ##1 acetaminophen 500 mg tablet 1,000 mg PO TID 03/07/21 12/17/24 (Acetaminophen Extra Strength) aspirin 81 mg chewable tablet 162 mg PO DAILY 03/07/21 12/17/24 atorvastatin 40 mg tablet 40 mg PO QPM 03/07/21 12/17/24 tiotropium bromide 18 mcg capsule 1 puff inhalation DAILY 03/07/21 12/17/24 with inhalation device (Spiriva with HandiHaler) anastrozole 1 mg tablet 1 mg PO ONCE 12/17/24 12/17/24 ascorbic acid (vitamin C) 500 mg 500 mg PO DAILY 12/17/24 12/17/24 tablet (C-500) carvedilol 6.25 mg tablet 6.25 mg PO BID 12/17/24 12/17/24 docusate sodium 250 mg capsule 250 mg PO DAILY 12/17/24 12/17/24 ferrous sulfate 325 mg (65 mg 325 mg PO Q OTHER DAY 12/17/24 12/17/24 iron) tablet fluoxetine 10 mg capsule 20 mg PO ONCE 12/17/24 12/17/24 fluticasone furoate 200 1 inh inhalation Q24H 12/17/24 12/17/24 mcg-vilanterol 25 mcg/dose inhalation powder (Breo Ellipta) guaifenesin 600 mg tablet, 600 mg PO BID PRN congestion 12/17/24 12/17/24 extended release 12 hr (Mucus Relief ER) nortriptyline 25 mg capsule 25 mg PO HS 12/17/24 12/17/24 roflumilast 500 mcg tablet 500 mcg PO ONCE 12/17/24 12/17/24 cyclobenzaprine 10 mg tablet 10 mg PO TID PRN Pain 5-7 #30 tabs 12/19/24 methylprednisolone 4 mg tablets in See Rx Instructions PO .COMPLEX 12/19/24 a dose pack (Medrol (Dale)) #21 ea oxycodone 5 mg tablet 5 mg PO Q4HR PRN Pain 5 to 7 #30 12/19/24 tabs PHYSICAL EXAM AT DISCHARGE Vital Signs: Vital Signs x48h Temp Pulse Resp BP Pulse Ox O2 Flow Rate 12/19/24 16:54 36.7 C 94 19 114/71 96 3 Physical Exam Other/Comments: General Appearance: positive No acute distress and Alert Eyes Bilateral: positive Normal inspection ENT: positive ENT inspection nml Neck: positive Nml inspection Respiratory: positive Chest non-tender, Rhonchi (occasional. clears with cough. ) and Other (yellow sputum, baseline. ) Cardiovascular: positive Regular rate & rhythm Abdomen: positive No distention Back: positive Nml inspection and Other (still with paraspinal tenderness) Skin: positive Color nml Extremities: positive No pedal edema Neurologic/Psychiatric: positive Oriented x3 LABS 12/19/24 05:55 12/19/24 05:55 Discharge Plan Discharge Patient Disposition: 01 Home, Self Care Condition: Stable Prescriptions: New cyclobenzaprine 10 mg Tablet 10 mg PO TID PRN (Reason: Pain 5-7) Qty: 30 0RF oxycodone 5 mg Tablet 5 mg PO Q4HR PRN (Reason: Pain 5 to 7) Qty: 30 0RF methylprednisolone [Medrol (Dale)] 4 mg tablets,dose pack See Rx Instructions .ROUTE .COMPLEX Qty: 21 0RF Rx Instructions: for 6 days Continued albuterol sulfate [Ventolin HFA] 200 PUFFS/18 GM HFA aerosol inhaler 2 puff inhalation Q4H PRN (Reason: Wheezing) Qty: 1 0RF atorvastatin 40 MG tablet 40 mg PO QPM Patient Comments: TAKE 1 TABLET BY MOUTH EVERY DAY acetaminophen [Acetaminophen Extra Strength] 500 MG tablet 1,000 mg PO TID aspirin 81 MG tablet,chewable 162 mg PO DAILY Patient Comments: CHEW AND SWALLOW 2 TABLETS DAILY tiotropium bromide [Spiriva with HandiHaler] 18 MCG capsule, w/inhalation device 1 puff inhalation DAILY anastrozole 1 mg tablet 1 mg PO ONCE carvedilol 6.25 mg tablet 6.25 mg PO BID Patient Comments: TAKE 1 TABLET BY MOUTH TWICE DAILY WITH BREAKFAST AND WITH SUPPER nortriptyline 25 mg capsule 25 mg PO HS Patient Comments: TAKE 1 CAPSULE BY MOUTH AT BEDTIME fluoxetine 10 mg capsule 20 mg PO ONCE Patient Comments: TAKE 2 CAPSULES BY MOUTH ONCE DAILY roflumilast 500 mcg tablet 500 mcg PO ONCE Patient Comments: TAKE 1 TABLET BY MOUTH ONCE DAILY fluticasone furoate-vilanterol [Breo Ellipta] 200-25 mcg/dose blister with device 1 inh INHALATION Q24H Patient Comments: INHALE 1 PUFF BY MOUTH ONCE DAILY MUST BE SEEN FOR ADDITIONAL REFILLS ascorbic acid (vitamin C) [C-500] 500 mg tablet 500 mg PO DAILY guaifenesin [Mucus Relief ER] 600 mg tablet extended release 12hr 600 mg PO BID PRN (Reason: congestion) docusate sodium 250 mg capsule 250 mg PO DAILY ferrous sulfate 325 MG tablet 325 mg PO Q OTHER DAY Activity Restrictions: Activity as Tolerated Diet: Regular Health Concerns: You are a 69-year-old female with COPD who came into the hospital with severe anemia. From what you told me about your health history your anemia is not due to the loss of red blood cells nor is it due to not making red blood cells. You have not had any blood in your stools nor have you had evidence of passing partially digested blood. Since you have been here we have given you 3 units of red blood cells. We have also given you an infusion of iron to help you make more red blood cells. You also came in complaining of back pain. Imaging of your spine showed that you have pinched nerves but otherwise no other problem causing your back pain. This back pain should get better with time. I recommend that you follow-up with your primary care provider regarding your back pain. At home, continue to take your iron supplements. I am prescribing you oxycodone and Flexeril to help with your back pain. I would also recommend that you get a referral for outpatient physical therapy if at all possible. We had recommended that you have some home health physical therapy but that is not something that you want to do. If you change your mind you can let your primary care provider know and they can help get that set up for you. I also recommend that you follow-up with your care specialist at [facility]. A capsule endoscopy would be a really good idea in light of this anemia that no one seems to be able to figure out. When you came into the hospital you did have a test on your stool that showed that you are not passing blood in your stool. Care Plan Goals: back pain improves such that you are able to get around the house and do your normal activities followup with your PT Assessment: Make sure to call your PCP for followup in 7-10 days. Print Language: Persian Patient Instructions: Anemia, Back Safety Into and Out Bed
[2024-12-19] MEDS ORDERED: IPRATROPIUM 0.2 MG/ML NEB INH SCH (13:00)
[2024-12-19 16:57] VITALS: BP 114/71; TEMP 98.1; O2SAT 96
== END 2024-12-19 17:18 | disposition home or self-care (01) | DRG 552 ==
LOC: MS2 12:38 → ED 12:38 → MS2 18:38
PROVIDERS: ADMIT Physician Assistant Medical; ATTEND Physician Assistant Medical
DX: J44.9 Chronic obstructive pulmonary disease, unspecified; D64.9 Anemia, unspecified; M48.061 Spinal stenosis, lumbar region without neurogenic claudication; Z87.891 Personal history of nicotine dependence; R00.0 Tachycardia, unspecified; I50.9 Heart failure, unspecified; Z85.3 Personal history of malignant neoplasm of breast; I25.10 Atherosclerotic heart disease of native coronary artery without angina pectoris; R53.1 Weakness; M47.26 Other spondylosis with radiculopathy, lumbar region; I11.0 Hypertensive heart disease with heart failure; Z99.81 Dependence on supplemental oxygen; M54.9 Dorsalgia, unspecified; Z66 Do not resuscitate; M47.816 Spondylosis without myelopathy or radiculopathy, lumbar region; D72.829 Elevated white blood cell count, unspecified; G89.29 Other chronic pain

== ENCOUNTER 2024-12-28 23:24 | Inpatient (IN) ==
--- NOTE | 2024-12-28 23:49 | ED Physician Documentation ---
History of Present Illness Stated complaint Stated Complaint: POSITIVE BLOOD CULTURES Chief complaint Chief Complaint: General History obtained from History obtained from: Patient and EMS Additonal information Additional information: 69-year-old woman presents after being called back for positive blood cultures after seen yesterday for confusion and UTI. Meds/Allgy Home Medications Ambulatory Orders Medication Instructions Recorded Confirmed albuterol sulfate 90 mcg/actuation 2 puff inhalation Q4H PRN Wheezing 08/09/16 12/17/24 aerosol inhaler (Ventolin HFA) ##1 acetaminophen 500 mg tablet 1,000 mg PO TID 03/07/21 12/17/24 (Acetaminophen Extra Strength) aspirin 81 mg chewable tablet 162 mg PO DAILY 03/07/21 12/17/24 atorvastatin 40 mg tablet 40 mg PO QPM 03/07/21 12/17/24 tiotropium bromide 18 mcg capsule 1 puff inhalation DAILY 03/07/21 12/17/24 with inhalation device (Spiriva with HandiHaler) anastrozole 1 mg tablet 1 mg PO ONCE 12/17/24 12/17/24 ascorbic acid (vitamin C) 500 mg 500 mg PO DAILY 12/17/24 12/17/24 tablet (C-500) carvedilol 6.25 mg tablet 6.25 mg PO BID 12/17/24 12/17/24 docusate sodium 250 mg capsule 250 mg PO DAILY 12/17/24 12/17/24 ferrous sulfate 325 mg (65 mg 325 mg PO Q OTHER DAY 12/17/24 12/17/24 iron) tablet fluoxetine 10 mg capsule 20 mg PO ONCE 12/17/24 12/17/24 fluticasone furoate 200 1 inh inhalation Q24H 12/17/24 12/17/24 mcg-vilanterol 25 mcg/dose inhalation powder (Breo Ellipta) guaifenesin 600 mg tablet, 600 mg PO BID PRN congestion 12/17/24 12/17/24 extended release 12 hr (Mucus Relief ER) nortriptyline 25 mg capsule 25 mg PO HS 12/17/24 12/17/24 roflumilast 500 mcg tablet 500 mcg PO ONCE 12/17/24 12/17/24 cyclobenzaprine 10 mg tablet 10 mg PO TID PRN Pain 5-7 #30 tabs 12/19/24 methylprednisolone 4 mg tablets in See Rx Instructions PO .COMPLEX 12/19/24 a dose pack (Medrol (Dale)) #21 ea oxycodone 5 mg tablet 5 mg PO Q4HR PRN Pain 5 to 7 #30 12/19/24 tabs cefpodoxime 200 mg tablet 200 mg PO BID #20 tabs 12/28/24 Allergies Allergies Allergy/AdvReac Type Severity Reaction Status Date / Time metoprolol AdvReac Intermediate Cough Verified 12/28/24 23:35 hydromorphone (From Dilaudid) AdvReac Emesis Verified 12/28/24 23:35 Penicillins AdvReac Hives Verified 12/28/24 23:35 PFSH Active Problems All Active Problems (Updated 12/28/24 @ 23:56 by Nini Holland MD) Acute confusion (Acute) Acute UTI (Acute) Septicemia (Acute) Acute UTI (Acute) Leukocytosis (Acute) COPD (chronic obstructive pulmonary disease) (Chronic) Back pain (Acute) Neck pain on left side (Acute) Left-sided chest pain (Acute) Hemoptysis (Acute) Epistaxis (Acute) Chest pain (Acute) Congestive heart failure (Chronic) Anemia (Chronic) Coronary artery disease (Chronic) Physical deconditioning (Chronic) Anxiety (Chronic) Hypertension (Chronic) COPD without exacerbation (Chronic) Social History Social History Smoking Status: Never smoker If you are a former smoker, when did you quit? (Date/Year): 2012 Number of Years Smoked: 48 How many cigarettes a day do you smoke? (20 cigarettes=1 Pk): 20 Second hand tobacco smoke exposure: No Do you dip or chew tobacco?: No Do you vape?: No Patient requests smoking cessation consult: No Initiate information on smoking cessation: No Living arrangement: At home Living Condition: With family Relationship: Level: Dependent Do you feel safe in your home environment?: Yes Suffered physical, verbal, emotional, or financial abuse?: No History of Abuse: No Substance Use: denies use POLST Patient has POLST: No POLST Status: DNR (When I describe resuscitation, chest compressions, cardioversion, intubation she does not want that done. However, she does want all measures of treatment to be provided to her up until that point of cardiac arrest or respiratory failure) Exam Exam Vital Signs: Vital Signs x48h Temp Pulse Resp BP Pulse Ox O2 Flow Rate 12/28/24 23:35 2 04/16/25 23:24 36.9 C 113 H 16 159/68 H 98 2 Constitutional normal general appearance and no apparent distress HENMT normocephalic and head/scalp atraumatic Eyes PERRL and EOMs intact bilaterally Respiratory breath sounds equal bilaterally, normal respiratory effort and clear to auscultation bilaterally Cardiovascular normal heart rate noted and regular rhythm noted Gastrointestinal abdomen normal to inspection and abdomen soft to palpation Genitourinary no CVA tenderness Results Vitals Vitals: Vital Signs - 24 hr 12/28/24 04:04 12/28/24 06:26 12/28/24 23:24 Temperature 36.9 C Temperature Source Temporal Artery Scan Pulse Rate 113 H Respiratory Rate 16 Blood Pressure 159/68 H O2 Saturation 98 Oxygen Delivery Method O2 Source Nasal cannula Nasal cannula If not protocol: Oxygen Flow, liters/minute 2 Pain Intensity 4 7 12/28/24 23:35 Temperature Temperature Source Pulse Rate Respiratory Rate Blood Pressure O2 Saturation Oxygen Delivery Method Nasal Cannula O2 Source If not protocol: Oxygen Flow, liters/minute 2 Pain Intensity Oxygen O2 Source Nasal cannula PD Medical Decision Making ED course ED course: 69-year-old woman presents for admission for uti and + blood cultures. d/w telehospitalist for admission Discharge Plan Discharge Patient Disposition: 66 [facility] DC/Xfer Condition: Stable Clinical Impression: Septicemia, Acute UTI, Acute confusion Prescriptions: No Action albuterol sulfate [Ventolin HFA] 200 PUFFS/18 GM HFA aerosol inhaler 2 puff inhalation Q4H PRN (Reason: Wheezing) Qty: 1 0RF atorvastatin 40 MG tablet 40 mg PO QPM Patient Comments: TAKE 1 TABLET BY MOUTH EVERY DAY acetaminophen [Acetaminophen Extra Strength] 500 MG tablet 1,000 mg PO TID aspirin 81 MG tablet,chewable 162 mg PO DAILY Patient Comments: CHEW AND SWALLOW 2 TABLETS DAILY tiotropium bromide [Spiriva with HandiHaler] 18 MCG capsule, w/inhalation device 1 puff inhalation DAILY anastrozole 1 mg tablet 1 mg PO ONCE carvedilol 6.25 mg tablet 6.25 mg PO BID Patient Comments: TAKE 1 TABLET BY MOUTH TWICE DAILY WITH BREAKFAST AND WITH SUPPER nortriptyline 25 mg capsule 25 mg PO HS Patient Comments: TAKE 1 CAPSULE BY MOUTH AT BEDTIME fluoxetine 10 mg capsule 20 mg PO ONCE Patient Comments: TAKE 2 CAPSULES BY MOUTH ONCE DAILY roflumilast 500 mcg tablet 500 mcg PO ONCE Patient Comments: TAKE 1 TABLET BY MOUTH ONCE DAILY fluticasone furoate-vilanterol [Breo Ellipta] 200-25 mcg/dose blister with device 1 inh INHALATION Q24H Patient Comments: INHALE 1 PUFF BY MOUTH ONCE DAILY MUST BE SEEN FOR ADDITIONAL REFILLS ascorbic acid (vitamin C) [C-500] 500 mg tablet 500 mg PO DAILY guaifenesin [Mucus Relief ER] 600 mg tablet extended release 12hr 600 mg PO BID PRN (Reason: congestion) docusate sodium 250 mg capsule 250 mg PO DAILY ferrous sulfate 325 MG tablet 325 mg PO Q OTHER DAY cyclobenzaprine 10 mg Tablet 10 mg PO TID PRN (Reason: Pain 5-7) Qty: 30 0RF oxycodone 5 mg Tablet 5 mg PO Q4HR PRN (Reason: Pain 5 to 7) Qty: 30 0RF methylprednisolone [Medrol (Dale)] 4 mg tablets,dose pack See Rx Instructions .ROUTE .COMPLEX Qty: 21 0RF Rx Instructions: for 6 days cefpodoxime 200 mg tablet 200 mg PO BID Qty: 20 0RF Rx Instructions: must administer with a meal/food Print Language: Malawian Stand Alone Forms: PCP List
[2024-12-28] MEDS ORDERED: cefTRIAXone 1 GM VIAL ONE (23:56)
[2024-12-28] MEDS: cefTRIAXone 1 GM in SODIUM CHLORIDE 0.9% MINIBAG 100 ML IV STA (23:58)
[2024-12-29 00:08] LABS: BASOPHILS % (AUTO) 0.1 %; EOSINOPHILS # (AUTO) 0.4 10^3/uL (0.0-0.7); EOSINOPHILS % (AUTO) 3.6 %; HCT - HEMATOCRIT 28.5 % (37.0-47.0); HGB - HEMOGLOBIN 8.1 g/dL (12.0-16.0); LYMPHOCYTES # (AUTO) 0.7 10^3/uL (1.5-3.5); LYMPHOCYTES % (AUTO) 6.7 %; MEAN CORPUSCULAR HEMOGLOBIN 23.5 pg (27.0-31.0); MEAN CORPUSCULAR HGB CONC 28.4 g/dL (32.0-36.0); MEAN CORPUSCULAR VOLUME 82.8 fL (81.0-99.0); MEAN PLATELET VOLUME 9.5 fL (7.9-10.8); MONOCYTES # (AUTO) 0.6 10^3/uL (0.0-1.0); MONOCYTES % (AUTO) 5.9 %; NEUTROPHILS # (AUTO) 8.2 10^3/uL (1.5-6.6); NEUTROPHILS % (AUTO) 83.3 %; PLT - PLATELET COUNT 361 10^3/uL (130-450); RED BLOOD COUNT 3.44 10^6/uL (4.20-5.40); RED CELL DISTRIBUTION WIDTH 20.5 % (12.0-15.0); WHITE BLOOD COUNT 9.8 x10^3/uL (4.8-10.8)
[2024-12-29 00:10] LABS: SLIDE REVIEW? Indicated
--- OUTSIDE RECORDS SUMMARY | 2024-12-29 00:15 | EXTERNAL MEDICAL SUMMARY RPT | Continuity of Care Document ---
Author Organization [facility] Address [address] [place] [id number] Phone Problems date description facility 2024-11-26 20:06 Cervicalgia [facility] 2024-11-26 20:06 Chest pain, unspecified [facility] 2024-11-28 10:17 Cervicalgia [facility] 2024-11-28 10:17 Chest pain, unspecified [facility] 2024-11-29 10:55 Cervicalgia [facility] 2024-11-29 10:55 Shortness of breath [facility] 2024-11-29 10:55 Chest pain, unspecified [facility] 2024-12-07 11:54 Cervicalgia [facility] 2024-12-07 11:54 Shortness of breath [facility] 2024-12-07 11:54 Chest pain, unspecified [facility] 2024-12-17 16:39 Anemia, unspecified [facility] 2024-12-17 16:39 Dorsalgia, unspecified [facility] 2024-12-18 11:45 Anemia, unspecified [facility] 2024-12-18 11:45 Elevated white blood cell count , unspecified [facility] 2024-12-18 11:45 Chronic obstructive pulmonary d isease, unspecified [facility] 2024-12-18 11:45 Dorsalgia, unspecified [facility] 2024-12-19 09:06 Anemia, unspecified [facility] 2024-12-19 09:06 Elevated white blood cell count , unspecified [facility] 2024-12-19 09:06 Chronic obstructive pulmonary d isease, unspecified [facility] 2024-12-19 09:06 Dorsalgia, unspecified [facility] 2024-12-19 12:23 Anemia, unspecified [facility] 2024-12-19 12:23 Elevated white blood cell count , unspecified [facility] 2024-12-19 12:23 Chronic obstructive pulmonary d isease, unspecified [facility] 2024-12-19 12:23 Dorsalgia, unspecified [facility] 2024-12-19 16:17 Anemia, unspecified [facility] 2024-12-19 16:17 Elevated white blood cell count , unspecified [facility] 2024-12-19 16:17 Chronic obstructive pulmonary d isease, unspecified [facility] 2024-12-19 16:17 Dorsalgia, unspecified [facility] 2024-12-19 16:18 Anemia, unspecified [facility] 2024-12-19 16:18 Elevated white blood cell count , unspecified [facility] 2024-12-19 16:18 Chronic obstructive pulmonary d isease, unspecified [facility] 2024-12-19 16:18 Dorsalgia, unspecified [facility] 2024-12-19 16:25 Anemia, unspecified [facility] 2024-12-19 16:25 Elevated white blood cell count , unspecified [facility] 2024-12-19 16:25 Chronic obstructive pulmonary d isease, unspecified [facility] 2024-12-19 16:25 Dorsalgia, unspecified [facility] 2024-12-19 17:19 Anemia, unspecified [facility] 2024-12-19 17:19 Elevated white blood cell count , unspecified [facility] 2024-12-19 17:19 Chronic obstructive pulmonary d isease, unspecified [facility] 2024-12-19 17:19 Dorsalgia, unspecified [facility] 2024-12-20 09:51 Anemia, unspecified [facility] 2024-12-20 09:51 Elevated white blood cell count , unspecified [facility] 2024-12-20 09:51 Chronic obstructive pulmonary d isease, unspecified [facility] 2024-12-20 09:51 Low back pain, unspecified [facility] 2024-12-20 09:51 [facility]algia, [facility] 2024-12-20 09:51 [facility]ness [facility] 2024-12-26 10:26 Low back pain, unspecified [facility] 2024-12-28 06:48 Urinary tract infection, site n ot specified [facility] 2024-12-28 23:35 Urinary tract infection, site n ot specified [email or web address] Results/Labs test date facility value unit notes Result panel 1 BASOPHILS # (AUTO) 2024-11-26 11:57 [facility] 0.0 10 3/ul (missing) NRBC ABSOLUTE COUNT (AUTO) 2024-11-26 11:57 [facility] 0.09 x10 3/ul (missing) BILIRUBIN,TOTAL 2024-11-26 11:57 [facility] 0.3 mg /dl As of March 2023 testing method has changed, this may include reference ranges. EOSINOPHILS # (AUTO) 2024-11-26 11:57 [facility] 0.5 10 3/ul (missing) CREATININE 2024-11-26 11:57 [facility] 0.7 mg/dl As of March 2023 testing method has changed, this may include reference ranges. NUCLEATED RED BLOOD CELLS AUTO 2024-11-26 11:57 [facility] 0.8 /100wbc (missing) MONOCYTES # (AUTO) 2024-11-26 11:57 [facility] 0.8 10 3/ul (missing) ALBUMIN/GLOBULIN RATIO 2024-11-26 11:57 [facility] 1.1 (missing) (missing) LYMPHOCYTES # (AUTO) 2024-11-26 11:57 [facility] 1.2 10 3/ul (missing) CHLORIDE 2024-11-26 11:57 [facility] 103 mmol/l As of March 2023 testing method has changed, this may include reference ranges. WHITE BLOOD COUNT 2024-11-26 11:57 [facility] 11.6 x10 3/ul (missing) AST ASPARTATE AMINOTRANSFERASE 2024-11-26 11:57 [facility] 13 iu/l As of March 2023 testing method has changed, this may include reference ranges. GLUCOSE 2024-11-26 11:57 [employer] 137 mg/dl As of March 2023 testing method has changed, this may include reference ranges. SODIUM 2024-11-26 11:57 [facility] [facility] 138 mmol/l As of March 2023 testing method has changed, this may include reference ranges. ALT ALANINE AMINOTRANSFERASE 2024-11-26 11:57 [email or web address] 17 iu/l As of March 2023 testing method has changed, this may include reference ranges. BUN - BLOOD UREA NITROGEN 2024-11-26 11:57 [employer] [facility] 17 mg/dl As of Mar testing method has changed, this may include reference ranges. RED CELL DISTRIBUTION WIDTH 2024-11-26 11:57 [facility] 18.6 % (missing) RED BLOOD COUNT 2024-11-26 11:57 [employer] 2.76 10 6/ul (missing) MEAN CORPUSCULAR HEMOGLOBIN 2024-11-26 11:57 [facility] 22.5 pg (missing) HCT - HEMATOCRIT 2024-11-26 11:57 [facility] 22.7 % (missing) CARBON DIOXIDE - CO2 2024-11-26 11:57 [facility] 27 mmol/l As of March 2023 testing method has changed, this may include reference ranges. MEAN CORPUSCULAR HGB CONC 2024-11-26 11:57 [employer] 27.3 g/dl (missing) GLOBULIN 2024-11-26 11:57 [facility] 3.4 g/dl (missing) POTASSIUM 2024-11-26 11:57 [employer] [facility] 3.4 mmol/l As of March 2023 testing method has changed, this may include reference ranges. ALBUMIN 2024-11-26 11:57 [employer] 3.8 g/dl As of March 2023 testing method has changed, this may include reference ranges. PLT - PLATELET COUNT 2024-11-26 11:57 [employer] 408 10 3/ul (missing) HGB - HEMOGLOBIN 2024-11-26 11:57 [facility] 6.2 g /dl Called to Jim [facility] RN ED by Nicho Coe MLS([facility]) at 1211 11/26/24. Read back(Y/N)?Y LIPASE 2024-11-26 11:57 [email or web address] 60 u/l As of March 2023 testing method has changed, this may include reference ranges. TOTAL PROTEIN 2024-11-26 11:57 [employer] 7.2 g/dl As of March 2023 testing method has changed, this may include reference ranges. ANION GAP 2024-11-26 11:57 [employer] 8.0 (missing ) (missing) GFR - MDRD 2024-11-26 11:57 [employer] 82 (in g) Social History date description facility
[2024-12-29 00:24] LABS: ALBUMIN 3.2 g/dL (3.2-5.5); ALBUMIN/GLOBULIN RATIO 0.9 (1.0-2.2); BILIRUBIN,TOTAL 0.3 mg/dL (0.2-1.0); CALCIUM 8.7 mg/dL (8.5-10.3); CREATININE 0.8 mg/dL (0.6-1.3); TOTAL PROTEIN 6.6 g/dL (6.4-8.9)
[2024-12-29 00:37] LABS: PLATELET MORPHOLOGY NORMAL APPEARANCE (NORMAL)
[2024-12-29 00:38] LABS: PLATELET ESTIMATE, MANUAL NORMAL (130-450,000) (NORMAL)
--- NOTE | 2024-12-29 00:46 | HISTORY & PHYSICAL EXAMINATION ---
Chief Complaint Chief Complaint Chief Complaint: positive blood cultures History of Present Illness Admitted From Admitted From:: home History Obtained From Exam Limitations: telemedicine History of Present Illness HPI Comment/Other: Ms Lal is a 69 yo F with history of COPD, CAD, HTN, depression, presents to the ER for follow up of positive blood cultures. Patient was evaluated in the ER yesterday and diagnosed with UTI, treated with IV ceftriaxone and discharged on PO cefpodoxime. Blood cultures are positive and patient was advised to return to ER for further management. She has received dose of IV ceftriaxone and repeat blood cultures collected. Patient is history is limited due to audio/visual technical difficulty, assisted with RN at bedside. Patient reports feeling better today but has been unwell the past 1-2 weeks. She denies dysuria but notes malodorous urine, per RN urine sample had mucous component. Patient denies fevers, chills, abdominal pain. She has a mid-lower back pain that radiates to her legs, this has been ongoing for the past 3-4 weeks. Review of Systems Status of ROS: 10 or more systems reviewed and unremarkable except as noted in history and below Constitutional Reports: Malaise and Weakness; Denies: Fever or Chills Cardiovascular Denies: chest pain, palpitations or shortness of breath with exertion Respiratory Denies: Shortness of breath, Cough or Sputum production Gastrointestinal Denies: Abdominal pain, Nausea or Vomiting Genitourinary Denies: Painful urination, Urinary frequency or Urinary urgency Musculoskeletal Reports: Back pain Integumentary/Breast Denies: Rash or Itching Neurological Denies: Headache or General weakness PFSH Active Problems All Active Problems (Updated 12/29/24 @ 00:00 by ) Acute UTI (Acute) Leukocytosis (Acute) COPD (chronic obstructive pulmonary disease) (Chronic) Back pain (Acute) Neck pain on left side (Acute) Left-sided chest pain (Acute) Hemoptysis (Acute) Epistaxis (Acute) Chest pain (Acute) Congestive heart failure (Chronic) Anemia (Chronic) Coronary artery disease (Chronic) Physical deconditioning (Chronic) Anxiety (Chronic) Hypertension (Chronic) COPD without exacerbation (Chronic) Social History Social History Smoking Status: Never smoker If you are a former smoker, when did you quit? (Date/Year): 2012 Number of Years Smoked: 48 How many cigarettes a day do you smoke? (20 cigarettes=1 Pk): 20 Second hand tobacco smoke exposure: No Do you dip or chew tobacco?: No Do you vape?: No Patient requests smoking cessation consult: No Initiate information on smoking cessation: No Living arrangement: At home Living Condition: With family Relationship: Level: Dependent Do you feel safe in your home environment?: Yes Suffered physical, verbal, emotional, or financial abuse?: No History of Abuse: No Substance Use: denies use POLST Patient has POLST: No POLST Status: DNR (When I describe resuscitation, chest compressions, cardioversion, intubation she does not want that done. However, she does want all measures of treatment to be provided to her up until that point of cardiac arrest or respiratory failure) Meds/Allgy Home Medications Ambulatory Orders Medication Instructions Recorded Confirmed albuterol sulfate 90 mcg/actuation 2 puff inhalation Q4H PRN Wheezing 08/09/16 12/17/24 aerosol inhaler (Ventolin HFA) ##1 acetaminophen 500 mg tablet 1,000 mg PO TID 03/07/21 12/17/24 (Acetaminophen Extra Strength) aspirin 81 mg chewable tablet 162 mg PO DAILY 03/07/21 12/17/24 atorvastatin 40 mg tablet 40 mg PO QPM 03/07/21 12/17/24 tiotropium bromide 18 mcg capsule 1 puff inhalation DAILY 03/07/21 12/17/24 with inhalation device (Spiriva with HandiHaler) anastrozole 1 mg tablet 1 mg PO ONCE 12/17/24 12/17/24 ascorbic acid (vitamin C) 500 mg 500 mg PO DAILY 12/17/24 12/17/24 tablet (C-500) carvedilol 6.25 mg tablet 6.25 mg PO BID 12/17/24 12/17/24 docusate sodium 250 mg capsule 250 mg PO DAILY 12/17/24 12/17/24 ferrous sulfate 325 mg (65 mg 325 mg PO Q OTHER DAY 12/17/24 12/17/24 iron) tablet fluoxetine 10 mg capsule 20 mg PO ONCE 12/17/24 12/17/24 fluticasone furoate 200 1 inh inhalation Q24H 12/17/24 12/17/24 mcg-vilanterol 25 mcg/dose inhalation powder (Breo Ellipta) guaifenesin 600 mg tablet, 600 mg PO BID PRN congestion 12/17/24 12/17/24 extended release 12 hr (Mucus Relief ER) nortriptyline 25 mg capsule 25 mg PO HS 12/17/24 12/17/24 roflumilast 500 mcg tablet 500 mcg PO ONCE 12/17/24 12/17/24 cyclobenzaprine 10 mg tablet 10 mg PO TID PRN Pain 5-7 #30 tabs 12/19/24 methylprednisolone 4 mg tablets in See Rx Instructions PO .COMPLEX 12/19/24 a dose pack (Medrol (Dale)) #21 ea oxycodone 5 mg tablet 5 mg PO Q4HR PRN Pain 5 to 7 #30 12/19/24 tabs cefpodoxime 200 mg tablet 200 mg PO BID #20 tabs 12/28/24 Allergies Allergies Allergy/AdvReac Type Severity Reaction Status Date / Time metoprolol AdvReac Intermediate Cough Verified 12/28/24 23:35 hydromorphone (From Dilaudid) AdvReac Emesis Verified 12/28/24 23:35 Penicillins AdvReac Hives Verified 12/28/24 23:35 Exam Exam Vital Signs: Vital Signs x48h Temp Pulse Resp BP Pulse Ox O2 Flow Rate 12/28/24 23:35 2 12/28/24 23:24 36.9 C 113 H 16 159/68 H 98 2 Constitutional normal general appearance, no apparent distress, average body habitus, no limitations and alert HENMT normocephalic and head/scalp atraumatic Chest inspection of chest normal Respiratory normal respiratory effort Cardiovascular normal heart rate noted and rhythm abnormal (noted tachycardia on vitals ) Gastrointestinal abdomen normal to inspection Psychiatry mental status grossly normal, oriented x3, thought process normal and cooperative Skin skin color normal Conclusion/Plan Lab Results Lab results reviewed: Yes 12/28/24 23:46 12/28/24 23:46 Other Other Results/Comments: Assessment/Plan Enterococcus bacteremia UTI -Urine culture is in process, likely E faecalis -Blood cultures GPC in process with PCR E faecalis -Sensitivities pending -Broaden antibiotic spectrum to Zosyn -Follow up repeat culture results -Afebrile, no elevated leukocytosis -Continue IV antibiotics -Patient reports back pain x3-4 weeks, consider further imaging pending examination by provider in a.m. COPD HTN HLD Depression -Continue home medications - med rec verification pending (audio/video tech issue) DVT ppx: Lovenox sc Telemedicine Consult Details Provider Location & Consult Time List names and roles of persons who participated in consult:: MD, RN at bedside, patient, ER provider on phone Telemedicine provider location:: [place]
[2024-12-29] MEDS ORDERED: ACETAMINOPHEN 325 MG TABLET PO PRN (01:12)
[2024-12-29] MEDS ORDERED: ONDANSETRON ODT 4 MG TABLET TL PRN (01:12)
[2024-12-29] MEDS ORDERED: SODIUM CHLORIDE FLUSH 0.9% 10 ML SYRINGE IVP PRN (01:12)
--- OUTSIDE RECORDS SUMMARY | 2024-12-29 01:36 | EXTERNAL MEDICAL SUMMARY RPT | Continuity of Care Document ---
Author Organization [facility] Address [address] [place] [id number] Phone Problems date description facility 2024-11-26 20:06 Cervicalgia [facility] 2024-11-26 20:06 Chest pain, unspecified [facility] 2024-11-28 10:17 Cervicalgia [facility] 2024-11-28 10:17 Chest pain, unspecified [facility] 2024-11-29 10:55 Cervicalgia [facility] 2024-11-29 10:55 Shortness of breath [facility] 2024-11-29 10:55 Chest pain, unspecified [facility] 2024-12-07 11:54 Cervicalgia [facility] 2024-12-07 11:54 Shortness of breath [facility] 2024-12-07 11:54 Chest pain, unspecified [facility] 2024-12-17 16:39 Anemia, unspecified [facility] 2024-12-17 16:39 Dorsalgia, unspecified [facility] 2024-12-18 11:45 Anemia, unspecified [facility] 2024-12-18 11:45 Elevated white blood cell count , unspecified [facility] 2024-12-18 11:45 Chronic obstructive pulmonary d isease, unspecified [facility] 2024-12-18 11:45 Dorsalgia, unspecified [facility] 2024-12-19 09:06 Anemia, unspecified [facility] 2024-12-19 09:06 Elevated white blood cell count , unspecified [facility] 2024-12-19 09:06 Chronic obstructive pulmonary d isease, unspecified [facility] 2024-12-19 09:06 Dorsalgia, unspecified [facility] 2024-12-19 12:23 Anemia, unspecified [facility] 2024-12-19 12:23 Elevated white blood cell count , unspecified [facility] 2024-12-19 12:23 Chronic obstructive pulmonary d isease, unspecified [facility] 2024-12-19 12:23 Dorsalgia, unspecified [facility] 2024-12-19 16:17 Anemia, unspecified [facility] 2024-12-19 16:17 Elevated white blood cell count , unspecified [facility] 2024-12-19 16:17 Chronic obstructive pulmonary d isease, unspecified [facility] 2024-12-19 16:17 Dorsalgia, unspecified [facility] 2024-12-19 16:18 Anemia, unspecified [facility] 2024-12-19 16:18 Elevated white blood cell count , unspecified [facility] 2024-12-19 16:18 Chronic obstructive pulmonary d isease, unspecified [facility] 2024-12-19 16:18 Dorsalgia, unspecified [facility] 2024-12-19 16:25 Anemia, unspecified [facility] 2024-12-19 16:25 Elevated white blood cell count , unspecified [facility] 2024-12-19 16:25 Chronic obstructive pulmonary d isease, unspecified [facility] 2024-12-19 16:25 Dorsalgia, unspecified [facility] 2024-12-19 17:19 Anemia, unspecified [facility] 2024-12-19 17:19 Elevated white blood cell count , unspecified [facility] 2024-12-19 17:19 Chronic obstructive pulmonary d isease, unspecified [facility] 2024-12-19 17:19 Dorsalgia, unspecified [facility] 2024-12-20 09:51 Anemia, unspecified [facility] 2024-12-20 09:51 Elevated white blood cell count , unspecified [facility] 2024-12-20 09:51 Chronic obstructive pulmonary d isease, unspecified [facility] 2024-12-20 09:51 Low back pain, unspecified [facility] 2024-12-20 09:51 [facility] 09:51 [facility] 2024-12-26 10:26 Low back pain, unspecified [facility] 2024-12-28 06:48 Urinary tract infection, [facility] 2024-12-28 23:35 Urinary tract infection, [facility] ot specified [facility] date facility value unit notes [...] may include reference ranges. GLUCOSE 2024-11-26 11:57 [facility] 137 mg/dl As of March 2023 testing method has changed, this may include reference ranges. SODIUM 2024-11-26 11:57 [facility] 138 mmol/l As of March 2023 testing method has changed, this may include reference ranges. ALT ALANINE AMINOTRANSFERASE 2024-11-26 11:57 [facility]l As of March 2023 testing method has changed, this may include reference ranges. BUN - BLOOD UREA NITROGEN 2024-11-26 11:57 [facility] [employer] 17 mg/dl As of Mar testing method has changed, this may include reference ranges. RED CELL DISTRIBUTION WIDTH 2024-11-26 11:57 [facility] 18.6 % (missing) RED BLOOD COUNT 2024-11-26 11:57 [facility] 2.76 10 6/ul (missing) MEAN CORPUSCULAR HEMOGLOBIN 2024-11-26 11:57 [facility] 22.5 pg (missing) HCT - HEMATOCRIT 2024-11-26 11:57 [facility] 22.7 % (missing) CARBON DIOXIDE - CO2 2024-11-26 11:57 [facility] 27 mmol/l As of March 2023 testing method has changed, this may include reference ranges. MEAN CORPUSCULAR HGB CONC 2024-11-26 11:57 [facility] 27.3 g/dl (missing) GLOBULIN 2024-11-26 11:57 [facility] 3.4 g/dl (missing) POTASSIUM 2024-11-26 11:57 [facility] [employer] 3.4 mmol/l As of March 2023 testing method has changed, this may include reference ranges. ALBUMIN 2024-11-26 11:57 [facility] 3.8 g/dl As of March 2023 testing method has changed, this may include reference ranges. PLT - PLATELET COUNT 2024-11-26 11:57 [facility] 408 10 3/ul (missing) HGB - HEMOGLOBIN 2024-11-26 11:57 [facility] 6.2 g /dl Called to [facility] RN ED by Nicho Coe MLS([facility]) at 1211 11/26/24. Read back(Y/N)?Y LIPASE 2024-11-26 11:57 [facility] 60 u/l As of March 2023 testing method has changed, this may include reference ranges. TOTAL PROTEIN 2024-11-26 11:57 [facility] [employer] 7.2 g/dl As of March 2023 testing method has changed, this may include reference ranges. ANION GAP 2024-11-26 11:57 [facility] 8.0 (missing ) (missing) GFR - MDRD 2024-11-26 11:57 [facility] 82 (in g) Social History date description facility
[2024-12-29] MEDS: PIPERACILLIN/TAZOBACTAM 3.375 GM in SODIUM CHLORIDE 0.9% MINIBAG 100 ML IV SCH (02:00)
[2024-12-29] MEDS: ENOXAPARIN 40 MG/0.4 ML SYRINGE SUBQ SCH (08:50)
[2024-12-29] MEDS: VANCOMYCIN INJ 1.75 GM in SODIUM CHLORIDE 0.9% 500 ML IV ONE (08:50)
[2024-12-29] MEDS: SODIUM CHLORIDE FLUSH 0.9% 10 ML SYRINGE IVP SCH (08:50)
[2024-12-29] MEDS: oxyCODONE 5 MG TABLET PO PRN (08:53)
[2024-12-29 10:33] LABS: BILIRUBIN,URINE NEGATIVE (NEGATIVE); GLUCOSE, URINE (UA) NEGATIVE (NEGATIVE); KETONES,URINE (UA) NEGATIVE (NEGATIVE); LEUKOCYTE ESTERASE, URINE TRACE (NEGATIVE); NITRITE,URINE NEGATIVE (NEGATIVE); OCCULT BLOOD,URINE NEGATIVE (NEGATIVE); PROTEIN,URINE TRACE mg/dL (NEGATIVE); UROBILINOGEN,URINE 0.2 (NORMAL) E.U./dL (NORMAL)
[2024-12-29] MEDS: KETOROLAC 15 MG/ML VIAL IVP SCH (10:35)
[2024-12-29 10:39] LABS: CLARITY,URINE CLEAR (CLEAR)
[2024-12-29] MEDS: CYCLOBENZAPRINE 10 MG TABLET PO PRN (10:40)
[2024-12-29 11:00] LABS: BACTERIA,URINE Few /HPF (None Seen); RBC,URINE 0-5 /HPF (0-5); SQUAMOUS EPITHELIAL CELL,UR FEW Squamous (<= Few)
[2024-12-29] MEDS: cefTRIAXone 1 GM VIAL IVP SCH (12:19)
--- NOTE | 2024-12-29 12:35 | PHARMACY PROGRESS NOTE ---
Best Possible Medication History Admit Date and Time: 12/29/24 [id number] Home Medications Medication Instructions Recorded Confirmed Type albuterol sulfate 90 mcg/actuation 2 puff inhalation Q4H PRN Wheezing 08/09/16 12/29/24 Rx aerosol inhaler (Ventolin HFA) ##1 acetaminophen 500 mg tablet 1,000 mg PO BID 03/07/21 12/29/24 History (Acetaminophen Extra Strength) aspirin 81 mg chewable tablet 162 mg PO DAILY 03/07/21 12/29/24 History atorvastatin 40 mg tablet 40 mg PO QPM 03/07/21 12/29/24 History anastrozole 1 mg tablet 1 mg PO DAILY 12/17/24 12/29/24 History ascorbic acid (vitamin C) 500 mg 500 mg PO DAILY 12/17/24 12/29/24 History tablet (C-500) carvedilol 6.25 mg tablet 6.25 mg PO BID 12/17/24 12/29/24 History docusate sodium 250 mg capsule 250 mg PO BID 12/17/24 12/29/24 History ferrous sulfate 325 mg (65 mg 325 mg PO Q OTHER DAY 12/17/24 12/29/24 History iron) tablet fluoxetine 10 mg capsule 20 mg PO DAILY 12/17/24 12/29/24 History fluticasone furoate 200 1 inh inhalation Q24H 12/17/24 12/29/24 History mcg-vilanterol 25 mcg/dose inhalation powder (Breo Ellipta) guaifenesin 600 mg tablet, 600 mg PO BID PRN congestion 12/17/24 12/29/24 History extended release 12 hr (Mucus Relief ER) nortriptyline 25 mg capsule 25 mg PO HS 12/17/24 12/29/24 History roflumilast 500 mcg tablet 500 mcg PO DAILY 12/17/24 12/29/24 History cyclobenzaprine 10 mg tablet 10 mg PO TID PRN Pain 5-7 #30 tabs 12/19/24 12/29/24 Rx cefpodoxime 200 mg tablet 200 mg PO BID #20 tabs 12/28/24 Rx tiotropium bromide 2.5 2 inh inhalation DAILY 12/29/24 12/29/24 History mcg/actuation mist for inhalation (Spiriva Respimat) Processed by: Pharmacy (Medication reconciliation completed by [employer]) Medications reviewed in ED?: No Medication History completed: Yes Patient Interview: Completed Secondary Source(s): Written medication list and Insurance records [facility] Statement: As the person ultimately responsible for medication therapy, providers are able to order a medication from an existing home medication list in [facility] via the "Reconcile Routine" prior to Confirmation of that medication by operations support representative. Such practice is discouraged except when the physician, in their clinical judgment, deems that a medical need exists for a medication without regard to p revious use.
[2024-12-29] MEDS: ALBUTEROL NEB 2.5 MG/3 ML INH PRN (12:50)
[2024-12-29] MEDS ORDERED: cefTRIAXone 1 GM in SODIUM CHLORIDE 0.9% MINIBAG 100 ML IV SCH (13:00)
[2024-12-29] MEDS: BUDESONIDE 0.5 MG/2 ML NEB INH SCH (13:03)
[2024-12-29] MEDS: FORMOTEROL FUMARATE NEB 20 MCG/2 ML INH SCH (13:04)
[2024-12-29] MEDS ORDERED: GADOTERATE MEGLUMINE 10 MMOL/20 ML VIAL ONE (13:19)
[2024-12-29] MEDS: methocarbamoL 500 MG TABLET PO PRN (14:10)
[2024-12-29] MEDS: ACETAMINOPHEN 325 MG TABLET PO SCH (14:11)
[2024-12-29] MEDS ORDERED: HYDROmorphone 0.5 MG/0.5 ML SYRINGE IVP PRN (14:33)
[2024-12-29] MEDS: LORazepam 1 MG TABLET PO PRN (16:55)
--- NOTE | 2024-12-29 17:00 | XRAY Report ---
PROCEDURE: XR Chest 1V INDICATIONS: SOB TECHNIQUE: One view of the chest was acquired. COMPARISON: 11/26/2024 FINDINGS: Surgical changes and devices: Median sternotomy wires. Left-sided Port-A-Cath. Lungs and pleura: No pleural effusions or pneumothorax. Prominent interstitial markings. No consoli dation. Mediastinum: Mediastinal contours appear normal. Heart size is enlarged, stable. Bones and chest wall: No suspicious bony lesions. Overlying soft tissues appear unremarkable. IMPRESSION: Cardiomegaly and prominent interstitial markings, concerning for pulmonary edema. Reviewed by: Charlie Shaikh MD on 12/29/2024 4:59 PM PDT Approved by: Charlie Shaikh MD on 12/29/2024 4:59 PM PDT Station ID: [id number]
[2024-12-29] MEDS: HYDROmorphone 0.5 MG/0.5 ML SYRINGE IVP PRN (17:37)
--- NOTE | 2024-12-29 18:33 | PROVIDER PROGRESS NOTE ---
Current Medications Current Medications Current Medications: Current Medications Generic Name Dose Route Start Last Admin Trade Name Freq PRN Reason Stop Dose Admin Acetaminophen 650 mg 12/29/24 14:00 12/29/24 14:11 Acetaminophen 325 Mg Tablet PO 650 mg TID ERNESTINA Administration Albuterol 2.5 mg 12/29/24 01:16 12/29/24 12:50 Albuterol Neb 2.5 Mg/3 Ml INH 2.5 mg Q4H PRN Administration Wheezing Atorvastatin Calcium 40 mg 12/29/24 21:00 Atorvastatin 40 Mg Tablet PO QPM ERNESTINA Budesonide 0.5 mg 12/29/24 07:00 12/29/24 13:03 Budesonide 0.5 Mg/2 Ml Neb INH Not Given RTBID ERNESTINA Ceftriaxone Sodium 1 gm 12/29/24 12:30 12/29/24 12:19 Ceftriaxone 1 Gm Vial IVP 1 gm DAILY ERNESTINA Administration Cyclobenzaprine HCl 10 mg 12/29/24 00:58 12/29/24 10:40 Cyclobenzaprine 10 Mg Tablet PO 10 mg TID PRN Administration Pain 5-7 Enoxaparin Sodium 40 mg 12/29/24 09:00 12/29/24 08:50 Enoxaparin 40 Mg/0.4 Ml Syringe SUBQ 40 mg DAILY ERNESTINA Administration Formoterol Fumarate 20 mcg 12/29/24 07:00 12/29/24 13:04 Formoterol Fumarate Neb 20 Mcg/2 Ml INH Not Given RTBID ERNESTINA Hydromorphone HCl 1 mg 12/29/24 16:35 12/29/24 17:37 Hydromorphone 0.5 Mg/0.5 Ml Syringe IVP 12/30/24 16:34 1 mg ONCE PRN Administration MRI Vancomycin HCl 1 gm/ Sodium 250 mls @ 167 mls/hr 12/30/24 08:30 Chloride IV Q24H ERNESTINA Ketorolac Tromethamine 15 mg 12/29/24 11:00 12/29/24 10:35 Ketorolac 15 Mg/Ml Vial IVP 01/01/25 10:59 15 mg Q12H ERNESTINA Administration Lorazepam 1 mg 12/29/24 16:33 12/29/24 16:55 Lorazepam 1 Mg Tablet PO 12/30/24 16:32 1 mg ONCE PRN Administration MRI Melatonin 3 mg 12/29/24 21:00 Melatonin 3 Mg Tablet PO QPM ERNESTINA Methocarbamol 500 mg 12/29/24 10:01 12/29/24 14:10 Methocarbamol 500 Mg Tablet PO 500 mg Q6HR PRN Administration Spasms Ondansetron HCl 4 mg 12/29/24 01:12 Ondansetron Odt 4 Mg Tablet TL Q6HR PRN Nausea / Vomiting Oxycodone HCl 5 mg 12/29/24 01:12 12/29/24 14:10 Oxycodone 5 Mg Tablet PO 5 mg Q6H PRN Administration Pain 5 to 7 Sodium Chloride 10 ml 12/29/24 01:12 Sodium Chloride Flush 0.9% 10 Ml Syringe IVP PRN PRN NEEDED PER PROVIDER ORDERS Sodium Chloride 10 ml 12/29/24 09:00 12/29/24 16:56 Sodium Chloride Flush 0.9% 10 Ml Syringe IVP 10 ml 0100,0900,1700 ERNESTINA Administration Sterile Water 10 ml 12/29/24 12:30 12/29/24 12:19 Water For Injection,Sterile 10 Ml Vial MC 10 ml DAILY ERNESTINA Administration Objective Vital Signs/Intake & Output Vital Signs: Vital Signs x48h Temp Pulse Pulse Resp BP Pulse Ox O2 Flow Rate 12/29/24 16:06 37.0 C 103 H 20 133/64 H 2 12/29/24 13:00 96 16 8 12/29/24 12:56 96 16 96 2 Intake & Output: Intake & Output 12/26/24 12/27/24 12/28/24 12/29/24 23:59 23:59 23:59 23:59 Intake Total 1900 / 1900 Output Total 475 / 475 Balance 1425 / 1425 Weight (kg) 92.5 kg 92.5 kg Lab Results 12/28/24 23:46 12/28/24 23:46 Other Labs: Lab Results x24hrs 12/29/24 12/28/24 12/28/24 Range/Units 10:20 23:46 23:46 WBC (4.8-10.8) x10^3/uL RBC (4.20-5.40) 10^6/uL Hgb (12.0-16.0) g/dL Hct (37.0-47.0) % MCV (81.0-99.0) fL MCH (27.0-31.0) pg MCHC (32.0-36.0) g/dL RDW (12.0-15.0) % Plt Count (130-450) 10^3/uL MPV (7.9-10.8) fL Neut # (Auto) (1.5-6.6) 10^3/uL Lymph # (Auto) (1.5-3.5) 10^3/uL Eaton # (Auto) (0.0-1.0) 10^3/uL Eos # (Auto) (0.0-0.7) 10^3/uL Baso # (Auto) (0.0-0.1) 10^3/uL Absolute Nucleated RBC x10^3/uL Nucleated RBC % /100WBC Manual Slide Review Platelet Estimate (NORMAL) Platelet Morphology (NORMAL) RBC Morph Micro Appear 1+ OVALOCYTES 1+ POLYCHROMASIA (NORMAL) Sodium 140 (135-145) mmol/L Potassium 4.0 (3.5-4.5) mmol/L Chloride 104 (101-111) mmol/L Carbon Dioxide 28 (21-32) mmol/L Anion Gap 8.0 (6-13) BUN 23 H (6-20) mg/dL Creatinine 0.8 (0.6-1.3) mg/dL Estimated GFR (MDRD) 71 L (>89) Glucose 170 H (74-104) mg/dL Calcium 8.7 (8.5-10.3) mg/dL Total Bilirubin 0.3 (0.2-1.0) mg/dL AST 23 (10-42) IU/L ALT 27 (10-60) IU/L Alkaline Phosphatase 72 (42-121) IU/L Total Protein 6.6 (6.4-8.9) g/dL Albumin 3.2 (3.2-5.5) g/dL Globulin 3.4 (2.1-4.2) g/dL Albumin/Globulin Ratio 0.9 L (1.0-2.2) Lipase 23 (11-82) U/L Urine Color YELLOW Urine Clarity CLEAR (CLEAR) Urine pH 6.0 (5.0-7.5) PH Ur Specific [place] 1.025 (1.002-1.030) Urine Protein TRACE (NEGATIVE) mg/dL Urine Glucose (UA) NEGATIVE (NEGATIVE) mg/dL Urine Ketones NEGATIVE (NEGATIVE) mg/dL Urine Occult Blood NEGATIVE (NEGATIVE) Urine Nitrite NEGATIVE (NEGATIVE) Urine Bilirubin NEGATIVE (NEGATIVE) Urine Urobilinogen 0.2 (NORMAL) (NORMAL) E.U./dL Ur Leukocyte Esterase TRACE H (NEGATIVE) Urine RBC 0-5 (0-5) /HPF Urine WBC 11-25 H (0-5) /HPF Ur Squamous Epith Cells FEW Squamous (<= Few) Urine Bacteria Few (None Seen) /HPF Ur Microscopic Review INDICATED Urine Culture Comments INDICATED 12/28/24 12/28/24 Range/Units 23:46 23:46 WBC 9.8 (4.8-10.8) x10^3/uL RBC 3.44 L (4.20-5.40) 10^6/uL Hgb 8.1 L (12.0-16.0) g/dL Hct 28.5 L (37.0-47.0) % MCV 82.8 (81.0-99.0) fL MCH 23.5 L (27.0-31.0) pg MCHC 28.4 L (32.0-36.0) g/dL RDW 20.5 H (12.0-15.0) % Plt Count 361 (130-450) 10^3/uL MPV 9.5 (7.9-10.8) fL Neut # (Auto) 8.2 H (1.5-6.6) 10^3/uL Lymph # (Auto) 0.7 L (1.5-3.5) 10^3/uL Eaton # (Auto) 0.6 (0.0-1.0) 10^3/uL Eos # (Auto) 0.4 (0.0-0.7) 10^3/uL Baso # (Auto) 0.0 (0.0-0.1) 10^3/uL Absolute Nucleated RBC 0.00 x10^3/uL Nucleated RBC % 0.0 /100WBC Manual Slide Review Indicated Platelet Estimate NORMAL (130-450,000) (NORMAL) Platelet Morphology NORMAL APPEARANCE (NORMAL) RBC Morph Micro Appear 2+ HYPOCHROMASIA 1+ ANISOCYTOSIS (NORMAL) Sodium (135-145) mmol/L Potassium (3.5-4.5) mmol/L Chloride (101-111) mmol/L Carbon Dioxide (21-32) mmol/L Anion Gap (6-13) BUN (6-20) mg/dL Creatinine (0.6-1.3) mg/dL Estimated GFR (MDRD) (>89) Glucose (74-104) mg/dL Calcium (8.5-10.3) mg/dL Total Bilirubin (0.2-1.0) mg/dL AST (10-42) IU/L ALT (10-60) IU/L Alkaline Phosphatase (42-121) IU/L Total Protein (6.4-8.9) g/dL Albumin (3.2-5.5) g/dL Globulin (2.1-4.2) g/dL Albumin/Globulin Ratio (1.0-2.2) Lipase (11-82) U/L Urine Color Urine Clarity (CLEAR) Urine pH (5.0-7.5) PH Ur Specific [place] (1.002-1.030) Urine Protein (NEGATIVE) mg/dL Urine Glucose (UA) (NEGATIVE) mg/dL Urine Ketones (NEGATIVE) mg/dL Urine Occult Blood (NEGATIVE) Urine Nitrite (NEGATIVE) Urine Bilirubin (NEGATIVE) Urine Urobilinogen (NORMAL) E.U./dL Ur Leukocyte Esterase (NEGATIVE) Urine RBC (0-5) /HPF Urine WBC (0-5) /HPF Ur Squamous Epith Cells (<= Few) Urine Bacteria (None Seen) /HPF Ur Microscopic Review Urine Culture Comments Assessment/Plan Problem List (1) Bacteremia: Impression: Pt examined today. COntinued severe low back pain, radiating down to below R knee and to L upper thigh. Denies dyspuria and frequency but does report increased urgency and urinary incontinence over past week (does not make it to bathroom in time). Normal bowel function. No saddle anesthesia. No gross bleeding or melena. Recent hospitalization reviewed- received RPBC transfusion. Planning outpt capsule endoscopy. On exam, strength 5/5 LE bilat, decreased sensation R anterior thigh. babinski downgoing bilat, CN 2-12 intact. Back: midline lumbar spine tenderness, also tender paraspinous regions bilat in lower back. Straight leg raise negative. Severe pain in low back when sitting up. Lungs: diminished at bases, no wheeze, nonlabored on 2-3 L NC. Sternotomy scar. RRR, no m/r/g. labs reviewed. ucx 12/28/24: > 100,000 E. coli blood cx, 12/28/24: 12/16 GPCs pairs/chains- PCR enterococcus faecalis blood cx, 12/28/24: GPCs pairs/chains 1/2 bottles? Plan: UA from yesterday is unimpressive for UTI (0-3 wbc), and symptoms not typical for UTI. Other source for bactermia needs to be sought. With new low back pain over past 3-4 wks consider epidural abscess or OM. - vancomycin for enterococcus - CTX for E. coli in urine - obtain MRI L spine w/and w/out contrast - consider TTE to r/o IE - repeat blood cx for clearance - pain control: schedule tylenol, ketorolac x 3-5 days, methocarbamol, oxycodone prn - complete med rec - full code
[2024-12-29] MEDS: GADOTERATE MEGLUMINE 10 MMOL/20 ML VIAL IVP ONE (18:47)
--- NOTE | 2024-12-29 20:01 | MRI Report ---
PROCEDURE: MRI Lumbar Spine W/WO INDICATIONS: bacteremia, pain, sciatica CONTRAST: Clariscan 18.6 ml TECHNIQUE: Noncontrast sagittal T1 spin echo and T2 fast spin echo, sagittal STIR, axial T1 and T2 fast spin ech o through the lumbar spine. In cases with scoliosis, additional coronal T2 fast spin echo may be per formed. After the administration of contrast, sagittal and axial T1 spin echo with fat saturation th rough the lumbar spine. COMPARISON: None. FINDINGS: Image quality: Excellent. Alignment and curvature: There is normal bony alignment. Marrow: There is discitis/osteomyelitis centered at L3-L4. There is epidural abscess present extendin g from mid L2 through the bottom of L4. There is associated severe canal stenosis at L2-L3, in part s econdary to a disc extrusion. There is moderate canal stenosis at just inferior to the L3-L4 disc. Spinal cord: Conus medullaris terminates at the L1 level. Visualized spinal cord demonstrates nicolas l signal, without suspicious enhancement. Paraspinous soft tissues: No paravertebral masses or abnormal enhancement. T12-L1: Disc bulge. No canal stenosis. L1-L2: Normal in appearance. L2-L3: There is a superior midline disc extrusion plus posterior and anterior epidural abscess res ulting in severe canal stenosis. Reference axial postgadolinium image 20 of series 10 and axial T2 im age 20 of series 7. L3-L4: Discitis/osteomyelitis. Fluid in the disc. Loss of disc height. Associated cortical destruct ion. Associated enhancement. There is moderate canal stenosis, centered below the level of the disc, secondary to epidural abscess. L4-L5: Disc bulge. Facet hypertrophy. Borderline canal stenosis. L5-S1: Facet hypertrophy. No canal stenosis or foraminal stenosis. IMPRESSION: 1. Discitis/osteomyelitis centered at L3-L4. 2. Epidural abscess extending from mid L2 to the bottom of L4. 3. Canal stenosis is severe at L2-L3, secondary to a combination of a disc extrusion and epidural abs cess. Canal stenosis is moderate just inferior to the L3-L4 disc level secondary to epidural abscess. Above discussed with Dr. Jordan Worthy at the time of dictation on 12/29/2024 at 1953 hours. Reviewed by: Jensen Schwartz MD on 12/29/2024 7:59 PM PDT Approved by: Jensen Schwartz MD on 12/29/2024 7:59 PM PDT Station ID: [id number]
[2024-12-29] MEDS: ATORVASTATIN 40 MG TABLET PO SCH (21:44)
[2024-12-29] MEDS: MELATONIN 3 MG TABLET PO SCH (21:44)
[2024-12-29] MEDS: NORTRIPTYLINE 25 MG CAPSULE PO SCH (21:44)
[2024-12-29] MEDS: carvediloL 3.125 MG TABLET PO SCH (21:44)
[2024-12-29] MEDS: DOCUSATE SODIUM 250 MG CAPSULE PO SCH (21:44)
[2024-12-30 05:44] LABS: BASOPHILS % (AUTO) 0.1 %; EOSINOPHILS # (AUTO) 0.5 10^3/uL (0.0-0.7); EOSINOPHILS % (AUTO) 5.8 %; HCT - HEMATOCRIT 27.6 % (37.0-47.0); HGB - HEMOGLOBIN 7.6 g/dL (12.0-16.0); LYMPHOCYTES % (AUTO) 12.7 %; MEAN CORPUSCULAR HEMOGLOBIN 23.8 pg (27.0-31.0); MEAN CORPUSCULAR HGB CONC 27.5 g/dL (32.0-36.0); MEAN CORPUSCULAR VOLUME 86.5 fL (81.0-99.0); MEAN PLATELET VOLUME 9.5 fL (7.9-10.8); MONOCYTES # (AUTO) 0.6 10^3/uL (0.0-1.0); PLT - PLATELET COUNT 387 10^3/uL (130-450); RED BLOOD COUNT 3.19 10^6/uL (4.20-5.40); RED CELL DISTRIBUTION WIDTH 20.7 % (12.0-15.0); SLIDE REVIEW? Indicated; WHITE BLOOD COUNT 8.1 x10^3/uL (4.8-10.8)
[2024-12-30 05:55] LABS: CALCIUM 8.9 mg/dL (8.5-10.3); CREATININE 0.7 mg/dL (0.6-1.3); POTASSIUM 4.1 mmol/L (3.5-4.5)
[2024-12-30 06:57] LABS: PLATELET ESTIMATE, MANUAL NORMAL (130-450,000) (NORMAL); PLATELET MORPHOLOGY NORMAL APPEARANCE (NORMAL)
[2024-12-30] MEDS: IPRATROPIUM 0.2 MG/ML NEB INH SCH (08:47)
[2024-12-30] MEDS ORDERED: ACTUATION MIST INH SCH (09:00)
[2024-12-30] MEDS ORDERED: TIOTROPIUM BROMIDE INH SCH (09:00)
[2024-12-30] MEDS: ANASTROZOLE 1 MG TABLET PO SCH (09:35)
[2024-12-30] MEDS: ASPIRIN CHEW 81 MG TABLET PO SCH (09:35)
[2024-12-30] MEDS: VANCOMYCIN INJ 1 GM in SODIUM CHLORIDE 0.9% 250 ML IV SCH (09:35)
[2024-12-30] MEDS: FLUoxetine 10 MG CAPSULE PO SCH (09:35)
[2024-12-30] MEDS: Roflumilast 500 mcg tablet PO SCH (09:36)
[2024-12-30] MEDS: ASCORBIC ACID 500 MG TABLET PO SCH (09:37)
[2024-12-30] MEDS: guaiFENesin 600 MG TABLET PO PRN (11:09)
[2024-12-30] MEDS: oxyCODONE 5 MG TABLET PO SCH (13:03)
[2024-12-30 14:38] VITALS: TEMP 97.9
[2024-12-30] MEDS ORDERED: IPRATROPIUM/ALBUTEROL 3 ML NEB INH SCH (15:00)
[2024-12-30] MEDS: IPRATROPIUM/ALBUTEROL 3 ML NEB INH SCH (15:07)
[2024-12-30] MEDS: oxyCODONE 5 MG TABLET PO PRN (17:17)
[2024-12-30 18:15] VITALS: BP 137/61; O2SAT 94
--- NOTE | 2024-12-30 19:24 | Discharge Summary ---
Discharge Summary Admit Date: 12/29/24 Discharge Date: 12/30/24 Discharging Provider: Catalino Worthy MD Code Status: Attempt Resuscitation DIAGNOSES Admission Diagnoses: 1. enterococcus bacteremia 2. r/o UTI 3. COPD, chronic hypoxic respiratory failure 4. HTN 5. CAD s/p CABG 6. breast cancer 7. depression 8 chronic anemia Discharge Diagnoses with Status of Each Condition: 1. enterococcus bacteremia 2. r/o UTI 3. acute osteomyelitis/discitis L3-L4, spinal epidural abscess L2-L4 4. Severe canal stenosis L2-L3, disc extrusion 5. COPD, chronic hypoxic respiratory failure 6. acute on chronic anemia 7. HTN 8. CAD s/p CABG 9. breast cancer 10. depression HPI History of Present Illness: 69 yo F with history of COPD, CAD, HTN, depression, presents to the ER for follow up of positive blood cultures. Patient was evaluated in the ER yesterday (12/28) and diagnosed with UTI, treated with IV ceftriaxone and discharged on PO cefpodoxime. Blood cultures are positive and patient was advised to return to ER for further management. She has received dose of IV ceftriaxone and repeat blood cultures collected. Patient is history is limited due to audio/visual technical difficulty, assisted with RN at bedside. Patient reports feeling better today but has been unwell the past 1-2 weeks. She denies dysuria but notes malodorous urine, per RN urine sample had mucous component. Patient denies fevers, chills, abdominal pain. She has a mid-lower back pain that radiates to her legs, this has been ongoing for the past 3-4 weeks. Pain radiates down past R knee and to L upper thigh. Denies dyspuria and frequency but does report increased urgency and urinary incontinence over past week (does not make it to bathroom in time). Normal bowel function. No saddle anesthesia. HOSPITAL COURSE Hospital Course: 1. enterococcus bacteremia: Pt has been afebrile since arrival here. wbc normal, 8.1 on day of discharge. She is not septic. Blood cultures from [facility]: blood cx, 12/28/24: 4/4 enterococcus faecalis, ang susceptible blood cx, 12/28/24: enterococcus 1/2 bottles? blood cx, 12/29/24 pending The pt was started on vancomycin. Now that cultures show a susceptible organism, antibiotics can be narrowed. Likely source of bactermia is spinal OM/discitis/epidural abscess. 2. r/o UTI: symptoms not convincing and UA on day of urine culture had 0-3 wbc. Positive ucx may represent colonization vs true infection. Treating with Ceftriaxone. ucx 12/28/24: > 100,000 E. coli, ang susceptible 3. acute osteomyelitis/discitis L3-L4, spinal epidural abscess L2-L4, Severe canal stenosis L2-L3, disc extrusion: See MRI report below. Pt has no loss of motor function, no bowel or bladder dysfunction. Discussed case with neurosurgery at [facility] today and they have agreed with transfer to medicine service with neurosurgery consult there. Suspect causative organism is Enterococcus faecalis given blood culture results. She had severe low back pain on arrival and we have treated it with methocarbamol, scheduled tylenol, oxycodone 5 mg scheduled q 6 hr and 5 mg q 4 hr prn. 4. COPD, chronic hypoxic respiratory failure: Pt is stable on her home O2 of 2-3 L. She has SOB with exertion and diminished air entry at bases. She is receiving her home inhalers and sheduled duonebs here. 5. acute on chronic anemia: Recent admission at [facility] 12/16-12/19/24 for anemia. Hgb 5.1 at that admission, received 3 units PRBCs. Discharged with hgb 8.2. No gross bleeding or melena during that visit or since. History of severe anemia. Back in 2020 possibly had an NSAID induced GI bleed. However, has had multiple endoscopy procedures both upper and lower and patient states that these have never shown anything. She has not had a capsule endoscopy. Her groundskeeper is at [facility] and that is eventually the plan.On current admission hgb 8.1-> 7.6. I have held NSAIDs and prophylactic heparin in case of occlut GI bleed. Would monitor H/H closely. 6. CAD s/p CABG: Pt is on asa, statin, carvedilol. 7. breast cancer: continue home anastrazole. ALLERGIES Allergies Allergy/AdvReac Type Severity Reaction Status Date / Time metoprolol AdvReac Intermediate Cough Verified 12/28/24 23:35 hydromorphone (From Dilaudid) AdvReac Emesis Verified 12/28/24 23:35 Penicillins AdvReac Hives Verified 12/28/24 23:35 MEDICATIONS Ambulatory Orders Medication Instructions Recorded Confirmed albuterol sulfate 90 mcg/actuation 2 puff inhalation Q4H PRN Wheezing 08/09/16 12/29/24 aerosol inhaler (Ventolin HFA) ##1 acetaminophen 500 mg tablet 1,000 mg PO BID 03/07/21 12/29/24 (Acetaminophen Extra Strength) aspirin 81 mg chewable tablet 162 mg PO DAILY 03/07/21 12/29/24 atorvastatin 40 mg tablet 40 mg PO QPM 03/07/21 12/29/24 anastrozole 1 mg tablet 1 mg PO DAILY 12/17/24 12/29/24 ascorbic acid (vitamin C) 500 mg 500 mg PO DAILY 12/17/24 12/29/24 tablet (C-500) carvedilol 6.25 mg tablet 6.25 mg PO BID 12/17/24 12/29/24 docusate sodium 250 mg capsule 250 mg PO BID 12/17/24 12/29/24 ferrous sulfate 325 mg (65 mg 325 mg PO Q OTHER DAY 12/17/24 12/29/24 iron) tablet fluoxetine 10 mg capsule 20 mg PO DAILY 12/17/24 12/29/24 fluticasone furoate 200 1 inh inhalation Q24H 12/17/24 12/29/24 mcg-vilanterol 25 mcg/dose inhalation powder (Breo Ellipta) guaifenesin 600 mg tablet, 600 mg PO BID PRN congestion 12/17/24 12/29/24 extended release 12 hr (Mucus Relief ER) nortriptyline 25 mg capsule 25 mg PO HS 12/17/24 12/29/24 roflumilast 500 mcg tablet 500 mcg PO DAILY 12/17/24 12/29/24 cyclobenzaprine 10 mg tablet 10 mg PO TID PRN Pain 5-7 #30 tabs 12/19/24 12/29/24 cefpodoxime 200 mg tablet 200 mg PO BID #20 tabs 12/28/24 tiotropium bromide 2.5 2 inh inhalation DAILY 12/29/24 12/29/24 mcg/actuation mist for inhalation (Spiriva Respimat) PHYSICAL EXAM AT DISCHARGE Vital Signs: Vital Signs x48h Temp Pulse Pulse Resp BP Pulse Ox O2 Flow Rate 12/30/24 18:14 36.6 C 100 18 137/61 H 94 2 12/30/24 16:06 36.6 C 99 18 134/62 H 95 2 12/30/24 15:08 88 18 1 older woman sitting in chair, NAD, sclera anicteric, MMM Lungs: Diminished at bases, nonlabored, basilar crackles RRR, S1S2, sternotomy scar, no edema abd soft, NT, Nd, BS+ neuro: alert, strength 5/5 UE and LE bilat, decreased sensation left anterior and lateral thigh. babinski downgoing bilat. Back: midline lumbar spine tenderness, also tender paraspinous regions bilat in lower back. LABS 12/30/24 05:00 12/30/24 05:00 DIAGNOSTIC IMAGING Diagnostic Imaging Results Comments: MRI L spine, 12/29/24: TECHNIQUE: Noncontrast sagittal T1 spin echo and T2 fast spin echo, sagittal STIR, axial T1 and T2 fast spin echo through the lumbar spine. In cases with scoliosis, additional coronal T2 fast spin echo may be performed. After the administration of contrast, sagittal and axial T1 spin echo with fat saturation through the lumbar spine. COMPARISON: None. FINDINGS: Image quality: Excellent. Alignment and curvature: There is normal bony alignment. Marrow: There is discitis/osteomyelitis centered at L3-L4. There is epidural abscess present extending from mid L2 through the bottom of L4. There is associated severe canal stenosis at L2-L3, in part secondary to a disc extrusion. There is moderate canal stenosis at just inferior to the L3-L4 disc. Spinal cord: Conus medullaris terminates at the L1 level. Visualized spinal cord demonstrates normal signal, without suspicious enhancement. Paraspinous soft tissues: No paravertebral masses or abnormal enhancement. T12-L1: Disc bulge. No canal stenosis. L1-L2: Normal in appearance. L2-L3: There is a superior midline disc extrusion plus posterior and anterior epidural abscess resulting in severe canal stenosis. Reference axial postgadolinium image 20 of series 10 and axial T2 image 22 of series 7. L3-L4: Discitis/osteomyelitis. Fluid in the disc. Loss of disc height. Associated cortical destruction. Associated enhancement. There is moderate canal stenosis, centered below the level of the disc, secondary to epidural abscess. L4-L5: Disc bulge. Facet hypertrophy. Borderline canal stenosis. L5-S1: Facet hypertrophy. No canal stenosis or foraminal stenosis. IMPRESSION: 1. Discitis/osteomyelitis centered at L3-L4. 2. Epidural abscess extending from mid L2 to the bottom of L4. 3. Canal stenosis is severe at L2-L3, secondary to a combination of a disc extrusion and epidural abscess. Canal stenosis is moderate just inferior to the L3-L4 disc level secondary to epidural abscess. Above discussed with Dr. Jordan Worthy at the time of dictation on 12/29/2024 at 1953 hours. Reviewed by: Jensen Schwartz MD on 12/29/2024 7:[address], 12/28/24: FINDINGS: Image quality: Excellent. CSF spaces: Basal cisterns are patent. No extra-axial fluid collections. Ventricles are symmetric in size and shape. Brain: No midline shift. No intracranial masses or hemorrhage. Hypodensities in the subcortical and periventricular white matter are most commonly seen in setting of chronic microvascular ischemic changes. Age-related cerebral and cerebellar volume loss is seen. Intracranial vascular calcifications are noted in the internal carotid arteries. Skull and face: Calvarium and visualized facial bones are intact, without suspicious lesions. Sinuses: Visualized sinuses and mastoids are clear. IMPRESSION: 1.No acute intracranial pathology. 2.Mild chronic microvascular ischemic changes and generalized parenchymal volume loss. TIME SPENT Time Spent in Discharge (Minutes): 35 Discharge Plan Discharge Patient Disposition: 02 Transfer Acute Care Hosp Condition: Stable Medically Cleared Date:: 12/30/24 Prescriptions: No Action albuterol sulfate [Ventolin HFA] 200 PUFFS/18 GM HFA aerosol inhaler 2 puff inhalation Q4H PRN (Reason: Wheezing) Qty: 1 0RF atorvastatin 40 MG tablet 40 mg PO QPM Patient Comments: TAKE 1 TABLET BY MOUTH EVERY DAY acetaminophen [Acetaminophen Extra Strength] 500 MG tablet 1,000 mg PO BID aspirin 81 MG tablet,chewable 162 mg PO DAILY Patient Comments: CHEW AND SWALLOW 2 TABLETS DAILY anastrozole 1 mg tablet 1 mg PO DAILY carvedilol 6.25 mg tablet 6.25 mg PO BID Patient Comments: TAKE 1 TABLET BY MOUTH TWICE DAILY WITH BREAKFAST AND WITH SUPPER nortriptyline 25 mg capsule 25 mg PO HS Patient Comments: TAKE 1 CAPSULE BY MOUTH AT BEDTIME fluoxetine 10 mg capsule 20 mg PO DAILY Patient Comments: TAKE 2 CAPSULES BY MOUTH ONCE DAILY roflumilast 500 mcg tablet 500 mcg PO DAILY Patient Comments: TAKE 1 TABLET BY MOUTH ONCE DAILY fluticasone furoate-vilanterol [Breo Ellipta] 200-25 mcg/dose blister with device 1 inh INHALATION Q24H Patient Comments: INHALE 1 PUFF BY MOUTH ONCE DAILY MUST BE SEEN FOR ADDITIONAL REFILLS ascorbic acid (vitamin C) [C-500] 500 mg tablet 500 mg PO DAILY guaifenesin [Mucus Relief ER] 600 mg tablet extended release 12hr 600 mg PO BID PRN (Reason: congestion) docusate sodium 250 mg capsule 250 mg PO BID ferrous sulfate 325 MG tablet 325 mg PO Q OTHER DAY cyclobenzaprine 10 mg Tablet 10 mg PO TID PRN (Reason: Pain 5-7) Qty: 30 0RF cefpodoxime 200 mg tablet 200 mg PO BID Qty: 20 0RF Rx Instructions: must administer with a meal/food Spiriva Respimat 2.5 mcg/actuation mist 2 inh INHALATION DAILY Patient Comments: INHALE 2 SPRAY(S) BY MOUTH ONCE DAILY INTO THE LUNGS Activity Restrictions: Activity as Tolerated Diet: Cardiac Plan of Treatment: Transfer to [facility]. Print Language: Sinhala Stand Alone Forms: PCP List
== END 2024-12-30 18:59 | disposition short-term general hospital (02) | DRG 871 ==
LOC: ED 23:24 → MS2 12-29 01:30
PROVIDERS: ADMIT Student in an Organized Health Care Education/Training Program; ATTEND Student in an Organized Health Care Education/Training Program